=== PATIENT | female | born 2000 | race Caucasian/White ===

== ENCOUNTER 2023-01-09 18:53 | Emergency (ER) | payer OTHER, SELFPAY ==
[2023-01-09 18:57] VITALS: BP 117/82; PULSE 97; RESP 16; TEMP 35.9; O2SAT 98; BMI 43.9
[2023-01-09 19:32] LABS: Appearance Urine Clear (Clear); Bilirubin Urine Negative (Negative); Blood Urine Trace-intact (Negative); Color Urine Yellow (Yellow); Glucose Urine Negative (Negative); Ketones Urine Negative (Negative); Leukocyte Esterase Urine Negative (Negative); Nitrite Urine Negative (Negative); Protein Urine Negative (Negative); Specific Gravity Urine 1.015 (1.000-1.030); Urobilinogen Urine 0.2 (0.2-1.0)
[2023-01-09] MEDS: LACTATED RINGERS 1000 ML 1,000 ML IV (19:38)
[2023-01-09] MEDS: ONDANSETRON 2 MG/ML inj 4 MG IVP (19:39)
[2023-01-09 19:45] LABS: Basophils Absolute Auto 0.01 K/uL (0.00-0.30); Basophils Percent Auto 0.1 % (0.0-3.0); Eosinophils Absolute Auto 0.08 K/uL (0.00-0.50); Eosinophils Percent Auto 0.8 % (0.0-7.0); Hematocrit 40.2 % (33.0-51.0); Hemoglobin* 13.6 gm/dL (12.0-16.0); Immature Granulocytes Abs Auto 0.01 K/uL (0.00-0.30); Immature Granulocytes Pct Auto 0.1 %; Lymphocytes Absolute Auto 1.99 K/uL (0.90-2.90); Lymphocytes Percent Auto 20.5 % (20-44); Mean Corpuscular HGB Conc 34 gm/dL (32-36); Mean Corpuscular Hemoglobin 33 pg (26-34); Mean Corpuscular Volume 96 fL (80-100); Neutrophils Percent Auto 72.5 % (42.0-72.0); Platelet Count* 307 K/uL (140-440); RDW Coefficient of Variation % 12.4 % (11.5-15.5); Red Blood Count 4.18 m/uL (4.00-5.20); White Blood Count* 9.72 K/uL (4.50-11.00)
[2023-01-09 19:47] VITALS: BP 108/66
[2023-01-09 19:48] LABS: Slide Review Reflex No
[2023-01-09 20:00] LABS: Albumin* 3.9 g/dL (3.3-5.0); Chloride* 104 mmol/L (96-114)
[2023-01-09 20:01] LABS: Potassium* 3.8 mmol/L (3.6-5.1); Sodium* 134 mmol/L (135-149)
[2023-01-09 20:03] LABS: Alkaline Phosphatase* 80 U/L (40-150); Anion Gap 9 mEq/L (7-15); Aspartate Amino Transferase* 25 U/L (12-35); Bilirubin Total* 0.3 mg/dL (0.1-1.5); Carbon Dioxide* 21 mmol/L (20-32); Creatinine* 0.6 mg/dL (0.5-1.5); Estimated Glomerular Filt Rate 128 ml/min; Total Protein* 7.7 g/dL (6.0-8.3)
[2023-01-09 20:04] LABS: Alanine Aminotransferase* 20 U/L (4-35); Blood Urea Nitrogen* 13 mg/dL (5-24); Calcium* 9.2 mg/dL (8.4-10.6); Glucose* 91 mg/dL (60-115); Lipase* 101 U/L (23-300)
--- NOTE | 2023-01-09 20:09 | PC.NURSE ---
RN at bedside for OB assessment. 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 heart rate regular with no decreases. Patient denies vaginal bleeding or loss of fluid or pelvic pressure. She arrived at the emergency room with symptoms she described as upper abdominal cramping, nausea, vomiting, and diarrhea. Patient's nausea improved with medication and fluids.
[2023-01-09 20:13] LABS: PCR FLU A Negative PCR FLU A (Negative); PCR FLU B Negative PCR FLU B (Negative); SARS PCR* POSITIVE SARS-CoV-2 (Negative)
[2023-01-09 20:15] LABS: RBC Urine 0-2 (0-2); WBC Urine 0-2 (0-5)
--- NOTE | 2023-01-09 20:23 | ED_ITS ---
HPI - General Adult General Date Seen: 01/09/23 Chief complaint: Dizziness/Vertigo Stated complaint: 22 weeks , vomiting, dehyrdated Time Seen by Provider: 01/09/23 19:10 Source: patient Mode of arrival: ambulatory Limitations: no limitations History of Present Illness HPI narrative: Patient is a 22-year-old female presents emergency department for nausea, vomiting, lightheadedness and dizziness. She states symptoms started last night and have been going on throughout the day. She has vomited several times. She is 22 weeks is . Has had no complications with the . Denies fevers but has been having chills. Denies diarrhea. Has felt like she was going to pass out a few times. She has had some upper abdominal pain. See says the pain is much better at this time. Still feels very nauseated and lightheaded though. Has not been able to drink much because of the nausea and vomiting. Related Data Home Medications Medication Instructions Recorded Confirmed sertraline 50 mg tablet 50 mg PO DAILY 01/09/23 01/09/23 Allergies Allergy/AdvReac Type Severity Reaction Status Date / Time No Known Drug Allergies Allergy Verified 01/09/23 19:00 Review of Systems Status of ROS: Reports: 10 or more systems reviewed and unremarkable except as noted in History and below PFSH PFS Social History Smoking Status: Former smoker How often do you have a drink containing alcohol: never How often do you have six or more drinks on one occasion: Never AUDIT-C Alcohol total score: 0 Non-prescribed substance use: denies use Exam Narrative: Exam Narrative: Const: Well-nourished, Well-developed, in mild distress Eyes: PERRL, no conjunctival injection, and symmetrical lids HENT: Atraumatic external nose and ears. Moist mucous membranes. Neck: Symmetric, trachea midline, No thyromegaly. CVS: RRR, No murmurs or gallops. Peripheral pulses 2+ and equal in all extremities RESP: Unlabored respiratory effort. Clear to auscultation bilaterally. GI: Nontender/Nondistended, No rebound or guarding. MSK:Extremities w/o deformity, Normal Active ROM Skin: Warm, Dry. No rashes or lesions. Neuro: Normal Muscle tone, No focal neurological deficits. Psych: Awake, Alert, & Oriented x3. Appropriate mood and affect. Const: Vital Signs, click to edit/add: Vital Signs - 24 hr 01/09/23 18:57 01/09/23 19:47 Temperature 96.7 F L Pulse Rate [Pulse Oximeter] 97 Respiratory Rate 16 Blood Pressure [Ri ght Upper Arm] 117/82 108/66 Pulse Oximetry 98 Oxygen Delivery Me thod Room Air Course Vital Signs Vital signs: Initial Vital Signs Temperature 96.7 F L 01/09/23 18:57 Temperature Source Temporal Artery Scan 01/09/23 18:57 Pulse Rate 97 01/09/23 18:57 Respiratory Rate 16 01/09/23 18:57 Blood Pressure 117/82 01/09/23 18:57 Blood Pressure Mean 93 01/09/23 18:57 Blood Pressure Position Sitting 01/09/23 18:57 Pulse Oximetry 98 01/09/23 18:57 Oxygen Delivery Method Room Air 01/09/23 18:57 Vital Signs Temperature 96.7 F L 01/09/23 18:57 Pulse Rate 97 01/09/23 18:57 Respiratory Rate 16 01/09/23 18:57 Blood Pressure 117/82 01/09/23 18:57 Pulse Oximetry 98 01/09/23 18:57 Oxygen Delivery Method Room Air 01/09/23 18:57 Temperature 96.7 F L 01/09/23 18:57 Pulse Rate 97 01/09/23 18:57 Respiratory Rate 16 01/09/23 18:57 Blood Pressure 108/66 01/09/23 19:47 Pulse Oximetry 98 01/09/23 18:57 Oxygen Delivery Method Room Air 01/09/23 18:57 Medications Administered Medications: Discontinued Medications Generic Name Dose Route Start Last Admin Trade Name Freq PRN Reason Stop Dose Admin Lactated Ringer's 1,000 mls @ 1,000 mls/hr 01/09/23 19:17 01/09/23 19:38 Lactated Ringers 1000 Ml IV 01/09/23 20:16 1,000 mls/hr .Q1H ONE Administration Ondansetron HCl 4 mg 01/09/23 19:17 01/09/23 19:39 Ondansetron 2 Mg/Ml Inj IVP 01/09/23 19:18 4 mg ONCE ONE Administration Medical Decision Making MDM Narrative Medical decision making narrative: Patient is a 22-year-old female presents emergency department for lightheadedness, nausea, vomiting. She states she is feeling better today compared to yesterday but was still feeling lightheaded and nauseated. Has not barely keep anything down due to the nausea. We will give her a L of lactated Ringer's. Zofran given for nausea. CBC, CMP, ago was the slough, lipase, urinalysis all ordered. Urinalysis shows no acute abnormalities. CBC and CMP shows no concerning findings. No ketones in the urine so no signs of severe dehydration. She is COVID positive. She is feeling much better after the fluids and Zofran. Symptoms are likely secondary to COVID. We will discharge her home with Zofran. Informed to follow-up with her OB Gyne on Thursday. She is agreeable with this plan. Lab Data Labs: Lab Results 01/09/23 01/09/23 Range/Units 19:20 19:30 WBC 9.72 (4.50-11.00) K/uL RBC 4.18 (4.00-5.20) m/uL Hgb 13.6 (12.0-16.0) gm/dL Hct 40.2 (33.0-51.0) % MCV 96 (80-100) fL MCH 33 (26-34) pg MCHC 34 (32-36) gm/dL RDW Coeff of Loi 12.4 (11.5-15.5) % Plt Count 307 (140-440) K/uL Neut % (Auto) 72.5 H (42.0-72.0) % Lymph % (Auto) 20.5 (20-44) % Harvey % (Auto) 6.0 (0.0-11.0) % Eos % (Auto) 0.8 (0.0-7.0) % Baso % (Auto) 0.1 (0.0-3.0) % Neut # (Auto) 7.00 (1.7-7.0) K/uL Lymph # (Auto) 1.99 (0.90-2.90) K/uL Harvey # (Auto) 0.60 (0.00-0.90) K/UL Eos # (Auto) 0.08 (0.00-0.50) K/uL Baso # (Auto) 0.01 (0.00-0.30) K/uL Abs Immat Gran (auto) 0.01 (0.00-0.30) K/uL Imm/Tot Granulo (auto) 0.1 % Sodium 134 L (135-149) mmol/L Potassium 3.8 (3.6-5.1) mmol/L Chloride 104 (96-114) mmol/L Carbon Dioxide 21 (20-32) mmol/L Anion Gap 9 (7-15) mEq/L BUN 13 (5-24) mg/dL Creatinine 0.6 (0.5-1.5) mg/dL Estimated Creat Clear 119.60 Estimated GFR 128 ml/min Glucose 91 (60-115) mg/dL Calcium 9.2 (8.4-10.6) mg/dL Total Bilirubin 0.3 (0.1-1.5) mg/dL AST 25 (12-35) U/L ALT 20 (4-35) U/L Alkaline Phosphatase 80 (40-150) U/L Total Protein 7.7 (6.0-8.3) g/dL Albumin 3.9 (3.3-5.0) g/dL Lipase 101 (23-300) U/L Urine Color Yellow (Yellow) Urine Appearance Clear (Clear) Urine pH 6.0 (5.0-8.5) Ur Specific [place] 1.015 (1.000-1.030) Urine Protein Negative (Negative) Urine Glucose (UA) Negative (Negative) Urine Ketones Negative (Negative) Urine Blood Trace-intact A (Negative) Urine Nitrite Negative (Negative) Urine Bilirubin Negative (Negative) Urine Urobilinogen 0.2 (0.2-1.0) Ur Leukocyte Esterase Negative (Negative) Urine RBC 0-2 (0-2) Urine WBC 0-2 (0-5) Ur Squamous Epith Cells None (None-Few) Urine Bacteria None (None) SARS-CoV-2 (PCR) POSITIVE SARS-CoV-2 A (Negative) Influenza Type A (PCR) Negative PCR FLU A (Negative) Influenza Type B (PCR) Negative PCR FLU B (Negative) Discharge Plan Discharge Clinical Impression: COVID Patient Disposition: Home, Self-Care Condition: Improved Instructions: COVID-19 (Coronavirus Disease 2019) (ED) Additional Instructions: Follow-up with your OB Gyne provider on Thursday. Take Zofran prescribed through inst[facility] for your nausea. Stay well hydrated. Quarantine for 5 days from onset of symptoms and 72 hours without a fever Prescriptions: No Action sertraline 50 mg tablet 50 mg PO DAILY Stand Alone Forms: [employer] Info Instructions
--- OUTSIDE RECORDS SUMMARY | 2023-01-09 20:36 | XMS_ITS | Continuity of Care Document ---
Author Name Unknown Organization [facility] Address [address] [address] [place] [address] Phone Care Team Providers Care Economics Teacher Name Role Phone Steve LAWRENCE, Maddy Unavailable Unavaila ble Allergies, Adverse Reactions, Alerts Substance Reaction Status Criticality No Known Allergies Active No Inform ation Medications Medication Instructions Dosage Effective Dates (start - stop) Status Comments Bentyl 20 mg tablet take 1 tablet by oral route 3 times every day 20 MG - Active Prilosec OTC 20 mg tablet,delayed release Take 1 tablet by oral route 2 times every day 1 tablet - Active melatonin 10 mg tablet Take 1 tablet by oral route every day 1 tablet - Active Probiotic 10 billion cell capsule take 1 tablet by oral route every day 1 tablet - Active Low-Ogestrel (28) 0.3 mg-30 mcg tablet take 1 tablet by oral route every day 1.00 tablet - Active 5-HTP 100 mg capsule Take 2 capsules by oral route every day - Active melatonin 10 mg tablet take 2 tablet by oral/g-tube route every day 2 tablet - No Longer Active Prilosec OTC 20 mg tablet,delayed release take 1 Tablet by Oral route every day 1 Tablet - No Longer Active Procedures Procedure Date Offic/outpt E&m Estab Low-mod 5 Ugi Endo; W/bx 1/mx Level Iv-surg Path Gross/micro 15 Immunocytochemistry, Each Antibody Advance Directives Directive Yes / No Effective Date File Name No Information Encounters Encounter Description Practice Location Reason(s) For Visit Diagnoses Date Provider Providers Copied on Encounter Offic/outpt E&m Estab Low-mod [facility], [address] [address], [place], [place], [id number], tel:[phone] [facility] GI Symptoms or Concerns (chief complaint) Epigastric Pain Steve Castañeda. [address] [facility], [place], [place], [id number], [place]. tel:[phone] Referring Provider: Annabella Prakash NP, [address], [place], [address]. tel:[phone] [facility], [address] [address], [place], [place], [id number], tel:[phone] [facility] LUQ PainDysphagi a, unspecifiedG astritisDysp hagia, Unspecified No Information Referring Provider: Annabella Prakash NP, [address], [place], [address]. tel:[phone] [facility], [address] [address], [place], [place], [id number], tel:[phone] [facility] GI Symptoms or Concerns (chief complaint) LUQ Pain No Information Referring Provider: Annabella Prakash NP, [address], [place], [address]. tel:[phone] Family History Family Member Type Diagnosis Age At Onset Brother Problem (finding) Alive and well Mother Problem (finding) diabetes mellitus type 2 Maternal uncle Problem (finding) cancer of colon Father Problem (finding) diabetes mellitus type 1 Mother Problem (finding) stage 3 chronic kidney disease Mother Problem (finding) gallbladder disease Payers Payer name Insurance type Covered democrat ID Authorlionela kellie(s) [employer] [facility] [id number] Social History Type Description Quantity Date Captured Comments Alcohol Use Details Unknown Caffeine Use Details Unknown Tobacco Use Status Never smoked tobacco 2014 Smoking Status Never smoker Non-Smoking Tobacco Use Details : No Details Available : No Details Available Sex Female Vital Signs Date / Time: Height Weight BMI Pulse Rate Blood Pressure Temperature Respiratory Rate Body Surface Area Head Circumference Head Circ. Percentile Wt./[place]. Percentile BMI percentile Pulse Ox Inhaled Ox 8:52 AM 62.72 in 79.900 kg (176.15 lbs) 31.4 9 kg/m eter (2) 78 /min 119/74 mm[Hg] 97 Chief Complaint And Reason For Visit From encounter dated '11/17/2014 09:30'. GI Symptoms or Concerns (chief complaint). Description: Mariela is a 13 year old female accompanied to clinic by her mother. Mariela is here for a follow up evaluation of abdominal pain. Mariela was seen in clinic on 08/10/[address] Cotto. Mariela underwent an endoscopy on 08/24/14 which showed some mild gastritis. She is here today and reports her symptoms have greatly improved since endoscopy. She will still on occasional feel abdominal pains. The pain is no longer located on theleft side, but in the epigastric region. She is prescribed Omeprazole 20mg BID, but states they frequently forget to take the second dose of omeprazole. She states the pain feels tight throughout herabdomen. She will also have the sensation of food slowly going through her esophagus, especially with meats and bread. She does not have problems swallowing liquids. She continues to have a good appetite and denies any weight loss. She has one bowel movement every other to every third day. Depending on the day her stools can be hard or soft. She will have diarrhea on occasion. She does not think the pain feels better after having a bowel movement. Workup that has been completed include; CMP, CBC, amylase, lipase, TTG-IgA, abdominal ultrasound, CT of abdomen, endoscopy all which were within normal limits. Reason For Referral Reason For Referral No Information History Of Present Illness Encounter Date Complaint History Of Prese nt Illness GI Symptoms or Concerns Mariela is a 13 year old female accompanied to clinic by her mother. Mariela is here for a follow up evaluation of abdominal pain. Mariela was seen in clinic on 08/10/[address] Cotto. Mariela underwent an endoscopy on 08/24/14 which showed some mild gastritis. She is here today and reports her symptoms have greatly improved since endoscopy. She will still on occasional feel abdominal pains. The pain is no longer located on the left side, but in the epigastric region. She is prescribed Omeprazole 20mg BID, but states they frequently forget to take the second dose of omeprazole. She states the pain feels tight throughout her abdomen. She will also have the sensation of food slowly going through her esophagus, especially with meats and bread. She does not have problems swallowing liquids. She continues to have a good appetite and denies any weight loss. She has one bowel movement every other to every third day. Depending on the day her stools can be hard or soft. She will have diarrhea on occasion. She does not think the pain feels better after having a bowel movement. Workup that has been completed include; CMP, CBC, amylase, lipase, TTG-IgA, abdominal ultrasound, CT of abdomen, endoscopy all which were within normal limits. GI Symptoms or Concerns Mariela is a 13 year old female accompanied to clinic with her mother and friend. Mariela is here for an initial evaluation of abdominal pain. She has had some workup completed by her PCP and the emergency room at [facility] in [place], [place]. Lab work was completed in April 2014 which includes, CMP, CBC with differential, CMP, amylase and lipase, TTG-IgA. Lab work was unremarkable with the expectation of a slightly decreased hbg of 4.03 (normal 4.1-5.1) Diagnostic testing completed includes a normal abdominal ultrasound and a CT scan which the findings were nonspecific but some prominent mesenteric lymph nodes which are consistent with mesenteric adenitis. Currently Mariela is still having upper left quadrant pain which is described as sharp/stabbing. The pain radiates to her back and up into her chest. The pain is easily reproduced by applying pressure to the area. The medication Prilosec has helped significantly but has not relieved all of the pain. Eating sausage or greasy foods and running make the pain worse. Her appetite varies depending on the severity of her pain. She does complain of foods getting feeling stuck in her esophagus. She states breads and meats are the worse, she denies any problems swallowing liquid. She does feel nauseous on a daily basis but denies vomiting Mariela was reluctant to talk about her stooling pattern, she described it as sometimes hard, but no large BMs. She denies any blood in her stool. There is a positive family history for DM type 1 in her father, kidney disease in her mother. Mother states she also had a hiatal hernia when she was younger. Functional Status Date Functional Assessmen t No Information Instructions Date Instruction Additional Infor diana 1. Bentyl 20mg 2-3 t imes per day. If improving symptoms, may use as needed.2. 40mg Omeprazole once daily.3. Fiber supplement.4. Continue probiotic.5. Follow up as needed.6. Mother and Mariela verbalized understanding of the plan and has no additional questions at this time. Related to Epigastric Pain 1. We will obtain an upper endoscopy with biopsies. 2. If endoscopy and biopsies show any irritation or ulcers, she may need twice a day dosing on her Prilosec.3. If symptoms persist, further investigation may be warranted. 4. Mother and Mariela verbalized understanding of the plan and have no additional questions at this time. Related to LUQ Pain EGD Assessments Type Assessment Date assessment Epigastric Pain impression Given the negative w orkup to date, the likely cause for Mariela's pain and irregular stooling pattern is likely irritable bowel syndrome. We will start Bentyl for IBS. Since she frequently missed the second dose of Omperazole, we will increase her dose once daily. Endoscopy did not reveal any inflammation, infection or EOE of her esophagus. If swallowing gets worse, then we may consider upper GI study. Mental Status Date Cognitive Assessment Orientation - [place] ed to time, place, person, situation. Patient Care Teams Name Effective Dates (start - stop) Status Members No Information
[2023-01-09 20:49] VITALS: BP 108/66; PULSE 97; RESP 16; TEMP 35.9
== END 2023-01-09 20:49 | disposition home or self-care (01) ==
LOC: ED 20:34
PROVIDERS: Emergency Provider Student in an Organized Health Care Education/Training Program
DX: O98.512 Other viral diseases complicating pregnancy, second trimester (principal); U07.1 COVID-19
CPT/HCPCS: 36415; 80053; 81001; 83690; 85025; 87631; 96374; 99283; 99284; J2405; J7120

== ENCOUNTER 2023-03-19 21:51 | Outpatient (CLI) | payer BC, SELFPAY ==
--- OUTSIDE RECORDS SUMMARY | 2023-03-19 21:56 | XMS_ITS | Clinical Summary ---
Author Name Unknown Organization [facility] Address [place], [place] [address] Care Team Providers Care Train Electronic Technician Name Role Phone Kierra Garcia Primary Care Provider AzucenaMyra goodwin MD Unavailable [phone] Allergies No known active allergies Medications Medication Sig Dispensed Refills Start Date End Date Status vit 28/iron fum/folic (multivitamin folic acid 1 mg) Take 1 Tablet by mouth once daily. 0 10/24/2022 Active ondansetron (ZOFRAN ODT) 8 mg disintegrating tabletIndications:Naus ea, vomiting, and diarrhea Place 0.5-1 Tablets (4-8 mg) on the tongue every 8 hours if needed for Nausea/Vomiting . 30 Tablet 0 11/25/2022 Active sertraline (ZOLOFT) 50 mg tabletIndications:RADHA (generalized anxiety disorder) Take 1 Tablet (50 mg) by mouth every morning. 90 Tablet 3 12/17/2022 Active aspirin (ECOTRIN) 81 mg enteric coated tablet Take 1 Tablet (81 mg) by mouth once daily with a meal. 100 Tablet 3 01/14/2023 Active Active Problems Problem Noted Date Diagnosed Date MDD (major depressive disord er), recurrent, severe, with psychosis 03/04/2023 [facility] Supervision of high-risk 3 Overview: [facility] ULTRASOUND/TESTING PATIENT Support person name: Fire Code Inspector: No ULTRASOUND TYPE: L2 REASON FOR VISIT: obesity in NEXT VISIT ALERTS: Non-[facility] labs entered in EPIC? no Final MIMI by Early Ultrasound LMP Date: Patient's last menstrual period was 07/15/2022 (exact date). MIMI: 04/21/22 Early US: Date: 10/13/22 GA: 10w0d MIMI: 05/11/23 PrePregnancy Weight: 244 lb Height: 5' 3.5 BMI: 42.54 (Current BMI: 42.68 ) PLANS & FUTURE APPOINTMENTS: ULTRASOUND/GROWTH PLAN: L2 on 12/23/22 - Growth: Next TESTING PLAN: - Testing: Through DELIVERY PLAN: - Scheduled delivery: - Preferred delivery location: PRIMARY DIAGNOSIS: 21 y.o. Estimated Date of Delivery: 05/11/23 : Maternal: Obesity in BMI = 42.68 Depression (zoloft) ADHD PREVIOUS ULTRASOUNDS: Next:: L2 on 12/23/22 10/13/22 (10w0d) EDC 05/11/23 ECHO: REFERRING PHYSICIAN/PHONE/LAST UPDATE: Dr. Myra Zeng, [place] [phone] Primary MD approves scheduling of recommended ultrasounds/testing: Yes SPECIALISTS/CONSULTS: Include: Specialty MD Clinic Name Phone# [place] and ADDED TO PATIENT CARE TEAM No GENETICS: Not Done CARE COORDINATION: PERTINENT LABS: Blood type: B Rh Positive Antibody screen: Negative PERTINENT MEDS: zofran, PNV, Zoloft PROCEDURES: PLAN OF CARE: Original and updated POC 10/06/2022 Overview: Estimated Date of Delivery: None noted. Patient's last menstrual period was 07/15/2022 (exact date). GBS- Last Tdap- 2011 Last Flu vaccine- 2019 Glucose (GTT) result- No Known Allergies OB History Para Term AB Living 1 0 0 0 0 0 SAB IAB Ectopic Multiple Live Births 0 0 0 0 0 # Outcome Date GA Lbr Domingo/2nd Weight Sex Delivery Anes PTL Lv 1 Current Past Medical History: . Date Acne vulgaris 11/29/2015 ADHD (attention deficit hyperactivity disorder), inattentive type 04/14/2016 Depression, recurrent (HC) 11/29/2015 Diarrhea 07/02/2017 EGD 06/2017 normal Colonoscopy 06/2017 normal Dysmenorrhea in the adolescent 12/07/2012 Dysmenorrhea in the adolescent 12/07/2012 Pap smear for cervical cancer screening 04/03/202104/2021 NIL Plan: Pap due 04/2024 Polycystic ovary syndrome Tobacco dependence 02/04/2019 Past Surgical History: . Laterality Date COLONOSCOPY Colonoscopy 06/2017 normal ESOPHAGOGASTRODUODENOSCOPY EGD 06/2017 normal TONSIL AND ADENOIDECTOMY at age 1 1/2 No data on file. Problems (from 10/06/22 to present) No problems associated with this episode. CHARLOTTE MCCALL RN ....10/06/2022 11:36 AM RADHA (generalized anxiety disorder) 01/07/2016 Depression, recurrent 11/29/2015 Estimated Date of Delivery Comme nts Yes 05/11/2023 Based on Ultraso und Resolved Problems Problem Noted Date Diagnosed Date Resolved Date MDD (major depressive disord er), recurrent, severe, with psychosis 04/03/2021 09/18/2021 Pap smear for cervical cancer screening 04/03/2021 09/18/2021 Overview: 04/2021 NIL Plan: Pap due 04/2024 Tobacco dependence 02/04/2019 2 Diarrhea 07/02/2017 09/18/2021 Overview: EGD 06/2017 normal Colonoscopy 06/2017 normal ADHD (attention deficit hype ractivity disorder), inattentive type 04/14/2016 09/18/2021 Acne vulgaris 11/29/2015 09/18/2021 Dysmenorrhea in the adolescent 12/07/2012 09/18/2021 Encounters Date Type Department Care Team Description 03/19/2023 Nurse Triage [facility] [address] [place] [id number] Myra Zeng MD 03/18/2023 10:55 AM ROLLER REPAIRER OB Encounter [facility] [address] [place] [address] Myra Zeng MD Care (32wk 2d/Had some discharge chunk of her mucus plug/The cut down to 8 hours has really helped) 03/18/2023 Travel 03/04/2023 11:20 AM ROLLER REPAIRER OB Encounter [facility] [address] [facility] [address] Myra Zeng MD Care (30w 2d/A lot of back pain, sent home from work yesterday. Lower back, left side worse than the right. Sharp pain and sometimes will go down her leg but mainly lower back) 03/04/2023 Travel 02/11/2023 10:55 AM ROLLER REPAIRER OB Encounter [facility] [facility] [address] Myra Zeng MD Care (27w 2d); Immunization/Inject ion 02/11/2023 10:40 AM ROLLER REPAIRER Orders Only [facility] [address] [facility] [address] Lab, [place] [facility] 02/11/2023 9:45 AM ROLLER REPAIRER Ancillary Procedure [facility] [address] [facility] [address] 02/11/2023 Travel 01/14/2023 11:20 AM ROLLER REPAIRER OB Encounter [facility] [address] [facility] [address] Myra Zeng MD Care (23w 2d/Went to ED 01/09/23 had stomach flu symptoms into Thursday. Tested at home for COVID-19 and was negative but when she went to the ED she was positive. Tested again 01/13 she tested negative.) 01/14/2023 Travel 01/09/2023 Nurse Triage [facility] [address] [place] [address] Kierra Garcia PA Diarrhea; Vomiting 01/07/2023 2:20 PM ROLLER REPAIRER OB Encounter [facility] [address] [place] [address] Ayesha Mackay DO Care (22 weeks 2 days); Urinary Problem (back pain 3 days and groin pain 1 week) 01/07/2023 Travel 12/23/2022 8:19 AM CDT - 12/23/2022 11:59 PM CDT Hospital Encounter [facility] [address] [place] [address] Jeff Kim MBBS Supervision of high risk in second trimester (Primary Dx); High-risk in second trimester 12/23/2022 Travel 12/17/2022 11:20 AM CDT OB Encounter [facility] [address] [place] [address] Myra Zeng MD Care (19w 2d/Currently taking 50 mg Zoloft and it seems to be working well) 12/17/2022 Travel from Last 3 Months Immunizations Name Administration Dates Next Due COVID-19 vaccine (Moderna 100mcg/0.5mL) PF, MDV 08/26/2021 COVID-19 vaccine (Pfizer-Bio NTech 30mcg/0.3mL) PF, MDV 02/20/2021,01/30/2021 DTP 02/15/2004, 1,07/09/1999,05/02,03/06/1999 HIB-HepB (Comvax) 01/08/2000,05/03/1999,03/06/19 00 Hepatitis A (Peds) 10/16/2011,07/19/2007 Inactivated Polio Vaccine 02/15/2004,10/1999,05/03/1999,03/06 Influenza Virus, Unspecified 11/14/2019,12/17/19 18 Influenza, IIV3 (Age >=3 years) 12/07/2012,03/06 Influenza, IIV4 12/03/2022, 0,01/30/2018,12/23,11/29/2015 Influenza, Injectable, Mdck, Quadrivalent, W/preservative 11/14/2019,12/16/2017 MMR 02/15/2004,01/08/2000 Meningococcal Vaccine (Menactra) 11/29/2015,100 09/2012 Pneumococcal conj 7-Valent (Prevnar 7) 1,04/08/2000 Tdap 02/11/2023,10/16/2011 Varicella Vaccine 07/19/2007,04/08/2000 Family History Medical History Relation Name Comments Diabetes Father Cancer-colon Maternal Uncle Diabetes Mother with Hypertension Mother Other Mother CKD Cancer-ovarian Paternal Aunt Psychiatric illness Paternal Aunt depress ion Relation Name Status Comments Brother Alive Father Alive Maternal Aunt Maternal Uncle Mother Alive Paternal Aunt Social History Tobacco Use Types Packs/Day Years Used Date Smoking Tobacco: Former Cigarettes 0.7 0 07/12/2022 - 05/31/2016 Passive Smoke Exposure: Past Smokeless Tobacco: Never Tobacco Cessation:Counseling Given: Not Answered Comments:Smokes cigarettes only when drinking, and only sometimes. Passive Exposure Comments:Fiance Alcohol Use Standard Drinks/Week Comments Not Currently 0 (1 standard drink = 0.6 oz pur e alcohol) occ. PHQ-2 Answer Date Recorded PHQ-2 TOTAL SCORE 2 12/03/2022 Social Connections Answer Date Recorded Frequency of Communication with Friends and Fami ly Not on file 02/20/2021 Financial Resource Strain Answer Date R ecorded Difficulty of Paying Living Expenses Not on file 02/20/2021 Difficulty of Paying Living Expenses Not on file 02/20/2021 Estimated Date of Delivery Comme nts Yes 05/11/2023 Based on Ultraso und Sex and Gender Information Value Date Recorded Sex Assigned at Not on file Gender Identity Not on file Sexual Orientation Not on file Obstetrics History Para Term AB IAB SAB Ectopic Multiple Livin g Live Births 1 Date Outcome GA Total Labor Labor/2nd/3rd Weight Sex Delivery Anes PTL Adele A1 A5 Name Cl in Current Summary Episode Dates Number of Fetuses Estimated Date of Delivery 10/06/2022 - Present (03/19/2023) 05/11/2023 (set by Miguelito Zeng MD on 10/24/2022 based on Ultrasound on 10/13/2022) Dating Summary Based On MIMI GA Diff Last Menstrual Period on 07/15/2022 (Exact Date) 04/21/2023 +2w6d Ultrasound on 10/13/2022 05/11/2023 Working GA:10w0d Vitals Pregravid Weight Height TWG (As of 03/19/2023) Pregrav id BMI 1.6 m (5' 3) Date GA Fund Present FHR Mvmt BP Weight Edema Alb Glu Ket Dil/ Eff/Sta 3 16w1d Inpatient data not displayed here. See encounter summary. 3 20w1d Inpatient data not displayed here. See encounter summary. Notes Progress Notes - OB Encounte r - 03/18/2023 - GA:32w2d 03/18/2023 - 32w2d - Myra Zeng MD SUBJECTIVE: Mariela Damon is a 22 y.o. female at 32+2 weeks. Back pain is better with shorter work hours. PT is cost-prohibitive, but she did get exercises from the PT at work and she feels like those are helping. Had a mucousy discharge, wonders if mucous plug? Some BH contractions, but no painful or regular ones. No other concerns. See visit comments. OBJECTIVE: see OB vitals flow sheet ASSESSMENT : 30+2 weeks gestation Obesity in . Weekly BPP starting 34 weeks, growth ultrasound at 35 weeks. PLAN: labor signs and symptoms reviewed with patient including pain, cramping, bleeding or leaking fluid. RTC 2 weeks. Myra Zeng MD .................... 03/18/2023 11:16 AM ER REPAIRER Progress Notes - OB Encounte r - 03/04/2023 - GA:30w2d 03/04/2023 - 30w2d - Myra Zeng MD SUBJECTIVE: Mariela Damon is a 22 y.o. female at 30+2 weeks. She is struggling with low back pain. Unfortunately is working 12 hour shifts with minimal breaks. Yesterday was sent home due to severity of low back pain. No concerns. See visit comments. OBJECTIVE: see OB vitals flow sheet ASSESSMENT : 30+2 weeks gestation Low back pain, referral for PT placed. Letter with work restrictions. Obesity in , weekly BPP starting 34 weeks. Growth ultrasound at 35 weeks. Hx depression, well controlled with current regimen PLAN: labor signs and symptoms reviewed with patient including pain, cramping, bleeding or leaking fluid. RTC 2 weeks. Myra Zeng MD .................... 03/04/2023 11:41 AM ER REPAIRER Progress Notes - OB Encounte r - 02/11/2023 - GA:27w2d 02/11/2023 - - Myra Zeng MD SUBJECTIVE: Mariela Damon is a 22 y.o. female at 27+2 weeks. No concerns. See visit comments. OBJECTIVE: see OB vitals flow sheet ASSESSMENT : 27+2 weeks gestation Covid in , on ASA Obesity in . PLAN: labor signs and symptoms reviewed with patient including pain, cramping, bleeding or leaking fluid. TDaP today Growth ultrasound today, results pending. Diabetes, hemoglobin and syphilis screening today. RTC 3 weeks. Orders placed for 34 week growth/BPP and weekly BPPs starting at 34 weeks. Myra Zeng MD .................... 02/11/2023 10:55 AM ER REPAIRER Progress Notes - OB Encounte r - 01/14/2023 - GA:23w2d 01/14/2023 - - Myra Zeng MD SUBJECTIVE: Mariela Damon is a 22 y.o. female at 23+2 weeks. She was diagnosed with covid in the ER last week. No concerns. She is feeling better, covid symptoms have resolved. See visit comments. OBJECTIVE: see OB vitals flow sheet ASSESSMENT : 23+2 weeks gestation Maternal obesity Recent covid infection PLAN: labor signs and symptoms reviewed with patient including pain, cramping, bleeding or leaking fluid. Growth ultrasound, TDaP, hemoglobin, diabetes adn syphilis screening next visit. Start 81 mg ASA for remainder of her . RTC 4 weeks. Myra Zeng MD .................... 01/14/2023 12:47 PM ER REPAIRER Progress Notes - OB Encounte r - 01/07/2023 - GA:22w2d 01/07/2023 - 22w2d - Ayesha Mackay DO S: patient is 22 years old G1 at 22 2/[address] typically [address] Dr Zeng and sent message yesterday regarding some LLQ pain. She was wondering about kidney infection and was asked to come into clinic. Patient points to left groin/inguinal area when describing. Radiates to back. Constant pain at about a 2 'not bad' earlier this week getting out of shower and could barely lift leg b/c pain. Groin pain started week ago and back Thursday. Staying same. No fevers, no urinary symptoms, no vaginal discharge or bleeding. Eating and drinking ok. Is having regular BM's. 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 +FM. O: Gen: pleasant female, no acute distress Abdomen: gravid, nttp. FHT 140's Left inguinal canal midline with ttp along mid region. MS: points to left SI joint when describing pain. Gets up and down from exam table without difficulty. No CVA ttp. UA wnl except SG 1.030 and trace ketones. A: G1 at 22 2/7 weeks with left groin and SI joint pain Plan: 1. UA reviewed, increase hydration. 2. IRON to assess for vaginal infection 3. Suspect musculoskeletal Follow up for next , sooner if needed Ayesha Mackay D.O. 01/07/2023 4:54 PM. ER REPAIRER Progress Notes - Hospital En counter - 12/23/2022 - GA:20w1d 12/23/2022 - 20w1d - Jeff Kim MBBS MPP Ultrasound Visit Your patient had an ultrasound with [facility] on 12/23/2022. The report is ready and can be found in the [facility]. Recommendations regarding further care are listed below. The Impression from the report is below. Thank you for sending her to see us. Referred By: MYRA ZENG MD INDICATION: BMI greater than 40 Indications Code 20 weeks gestation of Z3A.20 Morbid Obesity - BMI >40 Low Risk NIPT Depression & ADHD, Meds: Danny Khan IMPRESSION: Intrauterine at 20w 1d. presentation is Transverse, head to maternal left. EFW 326 grams, percentile: 40. Growth parameters and estimated weight are appropriate for the gestational age. No major structural anomalies were identified. No markers for aneuploidy were identified. The echocardiogram was read by [facility] as normal. Normal Deepest Vertical Pocket of amniotic fluid: 4.02 cm. Placental location: Posterior There is no evidence of placenta previa. The cervical length is 3 cm. RECOMMENDATIONS: -Return to primary provider for continued care. -Growth ultrasounds at 28 and 34 weeks due to BMI greater than 40. -Weekly surveillance starting at 34 weeks. -The patient was directed to schedule with OB provider as discussed at their visit today. CONSULT: Present findings are reassuring. The patient was seen by the Perinatologist today. The previous ultrasound and the record were reviewed. The results of the ultrasound were communicated to the patient. Risks specific to morbid obesity include macrosomia, long labors, increased risk of IUFD, increased risk of Section and increased risk of anomalies. Growth ultrasounds at 28 weeks and 34 weeks will allow screening for growth abnormalities. Alternatives available for detecting anomalies, aneuploidy and predicting developmental outcome for this were thoroughly discussed. The risks, benefits and limitations of maternal serum screening, ultrasound, and genetic amniocentesis were reviewed as needed with the patient. At the conclusion of our visit the patient is satisfied by the risk reduction of today's normal ultrasound study and previously resulted low risk NIPT test results. A echocardiogram was done today because of the increased risk of congenital heart defects in babies of women with a BMI over 40. New government regulations related to the Cures act require that this note be released to the patient immediately, sometimes before the referring provider has been contacted. A portion of the information was presented verbally to the patient. The remainder is submitted as background for the referring provider, to be discussed as needed. Medical Decision Making: Consult Low Level 20536 Limited number/complexity of problems including two or more self-limited problems, and BMI>40. Limited amount of data including review of prior ultrasound and review of prior external notes. Low risk of morbidity/mortality to the fetus from additional test or tx which (genetic amniocentesis was considered and declined). Services Provided: Procedures Code DETAIL ANATOMY & [facility] ECHO 34896.0 Progress Notes - OB Encounte r - 12/17/2022 - GA:19w2d 12/17/2022 - - Myra Zeng MD SUBJECTIVE: Mariela Callahan is a 21 y.o. female at 19+2 weeks. No concerns. See visit comments. OBJECTIVE: see OB vitals flow sheet ASSESSMENT : 19+2 weeks gestation Maternal obesity PLAN: Warning signs and symptoms reviewed with patient including pain, cramping, bleeding or leaking fluid. MPP consult /level 2 ultrasound next week. RTC 4 weeks. Myra Zeng MD .................... 12/17/2022 11:57 AM Progress Notes - OB Encounte r - 12/03/2022 - GA:17w2d 12/03/2022 - - Myra Zeng MD SUBJECTIVE: Mariela Callahan is a 21 y.o. female at 17+2 weeks. She is here for follow up on elevated blood pressure readings when seen in the ER on 11/25 for nausea and cramping. She had vomiting and diarrhea. Her blood pressure was 160/96. Mariela has been checking home blood pressures 110-120s/70s since that visit. No concerns. See visit comments. OBJECTIVE: see OB vitals flow sheet ASSESSMENT : 17+2 weeks gestation with no complications Maternal obesity PLAN: Warning signs and symptoms reviewed with patient including pain, cramping, bleeding or leaking fluid. Reviewed normal blood pressure and when to contact me. I would like her to continue to check blood pressure a few times/week and let me know if >140/90. RTC 2 weeks. Level 2 ultrasound scheduled. Flu vaccine given today. Myra Zeng MD .................... 12/03/2022 3:09 PM Progress Notes - OB Encounte r - 11/19/2022 - GA:15w2d 11/19/2022 - 15w2d - Myra Zeng MD SUBJECTIVE: Mariela Callahan is a 21 y.o. female at 15+2 weeks. No concerns. See visit comments. She is still not sure on genetic testing. She will check with insurance and her and reach out if they want to do testing. OBJECTIVE: see OB vitals flow sheet ASSESSMENT : 15+2 weeks gestation Maternal obesity PLAN: Warning signs and symptoms reviewed with patient including pain, cramping, bleeding or leaking fluid. RTC 4 weeks. Flu shot at next visit. Level 2 ultrasound ordered. Myra Zeng MD .................... 11/19/2022 11:31 AM Progress Notes - OB Encounte r - 10/24/2022 - GA:11w4d 10/24/2022 - w4d - Myra Zeng MD FIRST OB VISIT HPI: Mariela Callahan is a 21 y.o. female at Unknown with rodriguez intrauterine here today for a initial OB exam. Estimated due date is Estimated Date of Delivery: 05/11/2023 based on ultrasound dating at 10 weeks. Nausea/Vomiting: yes, but now resolved Breast tenderness: yes Fatigue: yes Bleeding: no Taking vitamins: yes Options of sequential screen, cell-free DNA testing, amniocentesis were discussed. Patient is interested in pursuing testing, will let me know for sure what testing they'd like to do once she talks with her . CF and SMA testing is declined AMA: no Previous : no OB History Para Term AB Living 1 SAB IAB Ectopic Multiple Live Births # Outcome Date GA Lbr Domingo/2nd Weight Sex Delivery Anes PTL Lv 1 Current Past Medical History: . Date Acne vulgaris 11/29/2015 ADHD (attention deficit hyperactivity disorder), inattentive type 04/14/2016 Depression, recurrent (HC) 11/29/2015 Diarrhea 07/02/2017 EGD 06/2017 normal Colonoscopy 06/2017 normal Dysmenorrhea in the adolescent 12/07/2012 Dysmenorrhea in the adolescent 12/07/2012 Pap smear for cervical cancer screening 04/03/202104/2021 NIL Plan: Pap due 04/2024 Polycystic ovary syndrome Tobacco dependence 02/04/2019 Past Surgical History: . Laterality Date COLONOSCOPY Colonoscopy 06/2017 normal ESOPHAGOGASTRODUODENOSCOPY EGD 06/2017 normal TONSIL AND ADENOIDECTOMY at age 1 1/2 Family History Problem Relation Age of Onset Diabetes Mother 32 with Hypertension Mother Other Mother CKD Diabetes Father Cancer-colon Maternal Uncle Cancer-ovarian Paternal Aunt Psychiatric illness Paternal Aunt depression Social History Tobacco Use Smoking status: Former Current packs/day: 0.00 Types: Cigarettes Start date: 07/12/2022 Quit date: 05/31/2016 Years since quittin.4 Passive exposure: Past (Fiance) Smokeless tobacco: Never Tobacco comments: Smokes cigarettes only when drinking, and only sometimes. Substance Use Topics Alcohol use: Not Currently Comment: occ. Current Outpatient Medications Medication Sig vit 28/iron fum/folic (multivitamin folic acid 1 mg) Take 1 Tablet by mouth once daily. No current facility-administered medications for this visit. Medications have been reviewed by me and are current to the best of my knowledge and ability. ALLERGIES Patient has no known allergies. MENTAL HEALTH HISTORY History of psychiatric diagnosis: Anxiety/depression, stopped medication once she was Current mental health provider: not applicable Currently taking any psychiatric medications? No INFECTION HISTORY Current Drug Use: none Relevant infection history from OB Questionnaire: No MRSA Hx of chlamydia, treated Hx of HSV1 REVIEW OF SYSTEMS Comprehensive ROS complete and negative other than noted in HPI and on OB Questionnaire. PHYSICAL EXAM BP 118/81 (Cuff Site: Left Arm, Position: Sitting, Cuff Size: Adult Large) Pulse (!) 103 Ht 1.613 m (5' 3.5) Wt 110.7 kg (244 lb) LMP 07/15/2022 (Exact Date) SpO2 98% BMI 42.54 kg/m?? General Appearance: Alert, appropriate appearance for age. No acute distress. HEENT Exam: Grossly normal. Neck/Thyroid Exam: Supple, no masses, nodes or enlargement. Lungs: Clear to auscultation bilaterally. Breast Exam: Not indicated. Cardiovascular Exam: Regular rate and rhythm. S1, S2, no murmur. Abd: Soft, non-tender, no masses or organomegaly. Skin: no rashes or lesions. Lymphatics: no nodes palpable. Psychiatric Exam: Alert and oriented x 3, appropriate affect. Pelvic Exam: deferred ASSESSMENT/PLAN 21 y.o. at Unknown with rodriguez intrauterine . ICD-10-CM 1. Supervision of normal first in first trimester Z34.01 Satisfactory exam. Demonstrates appropriate and health-seeking behaviors toward her . Verbalizes good understanding of care schedule and the importance of coming to each visit as scheduled. Start/continue vitamins. Reviewed labs. She was encouraged to call the office with any questions or concerns. Body mass index is 42.54 kg/m??. Diet and expected weight gain discussed with patient. Consider level 2 ultrasound and MPP consultation Will need anesthesia consult in third trimester. Myra Zeng MD Progress Notes - OB Encounte r - 10/06/2022 - GA:9w0d 10/06/2022 - 9w0d - Charlotte Iverson RN SUBJECTIVE: Mariela Callahan is a 21 y.o. female, , who presents for confirmation and ob education. Patient presents to the clinic alone. Had positive test at home. This was Unplanned, Desired. Patient was on contraception. 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 MENSTRUAL HISTORY: Patient's last menstrual period was 07/15/2022 (exact date).: Cycle Regularity: regular, every 21-31 days Past Medical History: . Date Acne vulgaris 11/29/2015 ADHD (attention deficit hyperactivity disorder), inattentive type 04/14/2016 Depression, recurrent (HC) 11/29/2015 Diarrhea 07/02/2017 EGD 06/2017 normal Colonoscopy 06/2017 normal Dysmenorrhea in the adolescent 12/07/2012 Dysmenorrhea in the adolescent 12/07/2012 Pap smear for cervical cancer screening 04/03/202104/2021 NIL Plan: Pap due 04/2024 Polycystic ovary syndrome Tobacco dependence 02/04/2019 OB History Para Term AB Living 1 SAB IAB Ectopic Multiple Live Births # Outcome Date GA Lbr Domingo/2nd Weight Sex Delivery Anes PTL Lv 1 Current 5P'S SUBSTANCE ABUSE SCREEN FOR ALCOHOL, DRUGS AND TOBACCO: Did any of your parents have a problem with using alcohol or drugs? No Do any of your friends (peers) have problems with drug or alcohol use? No Does your partner have a problem with drug or alcohol use? No Before you knew you were , how often did you drink beer, wine, wine coolers or liquor or use any kind of drug? Rarely In the past month, how often did you drink beer, wine, wine coolers or liquor or use any kind of drug? Not at all How much did you smoke, vape or use tobacco or nicotine in any form before you knew you were ? Don't Smoke, Vape or use Tobacco Genetic Screening Genetic Screening/Teratology Counseling- Includes patient, baby's father, or anyone in either family with: Patient's age 35 years or older as of estimated date of delivery: No Thalassemia (Greek, Estonian, Mediterranean, or background): MCV less than 80: No Neural tube defect (Meningomyelocele, Spina bifida, or Anencephaly): No Congenital heart defect: No Down syndrome: No Brad-Sachs (Ashkenazi Jew, [facility], Syriac Algerian): No Dahiana disease (Ashkenazi Jew): No Familial dysautonomia (Ashkenazi Jew): No Sickle cell disease or trait (): No Hemophilia or other blood disorders: No Muscular dystrophy: No Cystic fibrosis: No Kimble's chorea: No Intellectual disability and/or autism: No Other inherited genetic or chromosomal disorder: No Maternal metabolic disorder (eg. Type 1 diabetes, PKU): No Patient or baby's father had child with defects not listed above: No Recurrent loss, or a stillbirth: Yes (Comment: FOB's mom multiple miscarriages) Medications (including supplements, vitamins, herbs, or OTC drugs)/illicit/recreational drugs/alcohol since last menstrual period: No CURRENT MEDICATIONS: Current Outpatient Medications Medication Sig Blood-Glucose Meter (OneTouch Verio Meter) Dispense glucose meter, test strips and lancets covered by the patient insurance. Test 2 times per day. durable medical equipment (DME) AirSelect Standard Medium metFORMIN (GLUCOPHAGE XR) 500 mg Extended-Release tablet Take 2 Tablets (1,000 mg) by mouth once daily. sertraline (ZOLOFT) 100 mg tablet Take 1 Tablet (100 mg) by mouth every morning. No current facility-administered medications for this visit. Medications have been reviewed by me and are current to the best of my knowledge and ability. ALLERGIES: Patient has no known allergies. OBJECTIVE: Ht 1.629 m (5' 4.13) Wt 111.7 kg (246 lb 3.2 oz) LMP 07/15/2022 (Exact Date) BMI 42.08 kg/m?? ,URINE (no units) Date Value 06/18/2020 Negative ASSESSMENT/PLAN: ICD-10-CM 1. Supervision of normal first in first trimester Z34.01 CBC W PLT NO DIFF URINE CULTURE TYPE AND SCREEN RUBELLA IMMUNE STATUS TREPONEMA PALLIDUM LC HIV-1/O/2, 4TH GENERATION LC HBSAG SCREEN LC HCV ANTIBODY RFX TO QUANT PCR SOLE SPLITTER PROBE - GC CHLAMYDIA DNA PCR [[id number]] URINALYSIS W REFLEX MICROSCOPIC IF POSITIVE [87975.2] US 1ST TRIMESTER (< 14 weeks) [24676.0] EDUCATION/PATIENT INSTRUCTIONS - Advised patient to start/continue vitamin. - Discussed risk of using alcohol, tobacco, other drugs in . - Discussed healthy lifestyle in . - Provided copy of Beginnings book and book inserts, discussed [id number] medications, and follow up. - Encouraged patient to call clinic at [phone] with any vaginal bleeding, fluid leaking from vagina, severe abdominal pain, nausea with severe vomiting, fever higher than 100.4F, painful urination, headache not relieved by Tylenol, or other concerns - labs completed with today's visit. - Patient informed to schedule 1st trimester dating ultrasound between 7-10 weeks. - Initial OB appointment with FP/OB scheduled. PHQ-9, and COVID-19 vaccine discussion to be completed at this visit. Future Appointments Date Time Provider Department Center 10/28/2022 11:00 AM Saúl Christensen DPM [facility]CCALL RN .................... 10/06/2022 11:23 AM Last Filed Vital Signs Vital Sign Reading Time Taken Comments Blood Pressure 121/85 03/18/2023 11:03 AM ROLLER REPAIRER Pulse 86 03/18/2023 11:03 AM ROLLER REPAIRER Temperature 36.7 ??C (98 ??F) 11/25/2022 11:51 AM CDT Respiratory Rate 18 11/25/2022 11:51 AM CDT Oxygen Saturation 98% 03/18/2023 11:03 AM ROLLER REPAIRER Inhaled Oxygen Concentration - - Weight 119.7 kg (264 lb) 03/18/2023 11:03 AM ROLLER REPAIRER Height 160 cm (5' 3) 11/25/2022 11:51 AM CDT Body Mass Index 46.77 11/25/2022 11:51 AM CDT Plan of Treatment Upcoming Encounters Date Type Department Care Team (Late st Contact Info) Description 04/01/2023 9:45 AM ROLLER REPAIRER Ancillary Procedure [facility] [address] [place] [address] 04/01/2023 10:30 AM ROLLER REPAIRER OB Encounter [facility] [address] [place] [address] Myra Zeng MD [address] [facility] [address] 04/06/2023 8:15 AM ROLLER REPAIRER Ancillary Procedure [facility] [address] [facility] [address] 04/06/2023 9:30 AM ROLLER REPAIRER OB Encounter [facility] [address] [facility] [address] Myra Zeng MD [address] [facility] [address] 04/15/2023 1:10 PM ROLLER REPAIRER OB Encounter [facility] [address] [facility] [address] Myra Zeng MD [address] [facility] [address] 04/15/2023 1:45 PM ROLLER REPAIRER Ancillary Procedure [facility] [address] [facility] [address] 04/22/2023 10:30 AM ROLLER REPAIRER OB Encounter [facility] [address] [facility] [address] Myra Zeng MD [address] [facility] [address] 04/22/2023 1:00 PM ROLLER REPAIRER Ancillary Procedure [facility] [address] [facility] [address] 04/29/2023 10:30 AM ROLLER REPAIRER OB Encounter [facility] [address] [facility] [address] Myra Zeng MD [address] [facility] [address] 04/29/2023 1:00 PM ROLLER REPAIRER Ancillary Procedure [facility] [address] [place] [address] 05/06/2023 10:30 AM ROLLER REPAIRER OB Encounter [facility] [address] [place] [address] Myra Zeng MD [address] [place] [address] 05/06/2023 1:00 PM ROLLER REPAIRER Ancillary Procedure [facility] [address] [place] [address] Health Maintenance Due Date Last Done Comments HPV series for age 9-26 (1 - 2-dose series) 2009 COVID-19 vaccine series (2022- season) 2022 08/26/2021, 02/20/2021, 01/30/2021 Chlamydia for age 16-24 10/07/2023 10/07/19 23, 08/05/2021, 06/18/2020, Additional history exists BMI (ht and wt on same day) for age 18+ 10/25/2023 10/24/2022, 10/06/2022, 12/11/2021, Additional history exists Depression screening for age 12+ 12/04/2023 12/03/2022, 08/08/2022, 11/26/2020, Additional history exists Pap test for age 21-65 04/03/2024 04/03/2021 Tetanus booster 02/11/2033 02/11/2023, 10/16/2011 Pneumococcal series for age 6-64 Aged Out 07/08/2000, 04/08/2000 No longer eligibl e based on patient's age to complete this topic HIV for age 15-65 Completed 10/06/2022 Hepatitis C screening for age 18-79 Completed 10/06/2022 Influenza for age 9-49 Completed , 11/14/2019, 11/14/2019, Additional history exists Tdap Completed 02/11/2023, 10/16/2011 Procedures Procedure Name Priority Date/Time Associated Diagnosis Comments US OB FOLLOW UP ANY TRI SINGLE TA Routine 02/11/2023 11:37 AM ROLLER REPAIRER Encounter for supervision of normal first in second trimester GLUCOSE,GESTATIONAL Routine 02/11/2023 1 1:13 AM ROLLER REPAIRER Encounter for supervision of normal first in second trimester TREPONEMA PALLIDUM Routine 02/11/2023 11 :13 AM ROLLER REPAIRER Encounter for supervision of normal first in second trimester HEMOGLOBIN Routine 02/11/2023 11:13 AM ROLLER REPAIRER Encounter for supervision of normal first in second trimester TRICHOMONAS, CONSUELO, AND BACTERIAL VAGINOSIS BY IRON Routine 01/07/2023 2:54 PM ROLLER REPAIRER Back pain, unspecified back location, unspecified back pain laterality, unspecified chronicity UA W/ SEDIMENT EXAM REFLEXED PER CRITERIA Routine 01/07/2023 2:20 PM ROLLER REPAIRER Back pain, unspecified back location, unspecified back pain laterality, unspecified chronicity US ECHOCARDIOGRAM Routine 12/23/2022 9:57 AM CDT High-risk in second trimester US OB DETAIL ANATOMY SINGLE Routine 12/23/2022 9:57 AM CDT High-risk in second trimester from Last 3 Months Results * US OB FOLLOW UP ANY TRI SINGLE TA (02/11/2023 11:37 AM ROLLER REPAIRER) Anatomical Region Laterality Modality , 2or 3 TRIMESTER Ultrasound 02/11/2023 4:13 PM ROLLER REPAIRER Impressions 02/11/2023 4:13 PM ROLLER REPAIRER Sonographic gestational age 26 weeks 4 days and sonographic due date 05/16/2023. Sonographic age 5 days behind the clinical age. Estimated weight 22nd percentile. Abdominal circumference 35th percentile. BPD and HC 4th percentile. Dictated by Kp Wang MD @ Feb 11 2023 ??4:13PM (Electronically Signed) ?? Narrative 02/11/2023 4:13 PM ROLLER REPAIRER For Patients: ??As a result of the Cures Act, medical imaging exams and procedure reports are released immediately into your electronic medical record. ??You may view this report before your referring provider. ??If you have questions, please contact your health care provider. INDICATION: Third trimester scan, evaluate growth. COMPARISON: 12/23/2022 TECHNIQUE: Real time arevalo scale imaging of the fetus was performed. FINDINGS: Sonographic imaging demonstrates a single living intrauterine gestation. ??Fetus demonstrates a regular cardiac rate of 143 beats per minute. ??Fetus has a vertex position. The placenta lies posterior. Amniotic fluid volume appears normal and there is a single deepest vertical pocket: 3.6 cm. The estimated weight is 990gm which lies at the 22nd %. ??On the prior OB ultrasound exam dated 12/23/2022 the estimated weight was at the 40th%. BPD 4th percentile. HC 4th percentile. AC 35th percentile. FL 24th percentile. The HC/AC ratio measures 1.07 range (1.05- 1.22). Procedure Note Kp Wang MD - 02/11/2023 For Patients: As a result of the Cures Act, medical imagingexams and procedure reports are released immediately into your electronicmedical record. You may view this report before your referring provider.If you have questions, please contact your health care provider. INDICATION: Third trimester scan, evaluate growth. COMPARISON: 12/23/2022 TECHNIQUE: Real time arevalo scale imaging of the fetus was performed. FINDINGS: Sonographic imaging demonstrates a single living intrauterine gestation.Fetus demonstrates a regular cardiac rate of 143 beats per minute. Fetushas a vertex position. The placenta lies posterior. Amniotic fluid volumeappears normal and there is a single deepest vertical pocket: 3.6 cm. Theestimated weight is 990gm which lies at the 22nd %. On the prior OBultrasound exam dated 12/23/2022 the estimated weight was at [id number]%. BPD 4th percentile. HC 4th percentile. AC 35th percentile. FL 24thpercentile. The HC/AC ratio measures 1.07 range (1.05-1.22). IMPRESSION: Sonographic gestational age 26 weeks 4 days and sonographic due date05/16/2023. Sonographic age 5 days behind the clinical age. Estimated weight 22nd percentile. Abdominal circumference 35thpercentile. BPD and HC 4th percentile. Dictated by Kp Wang MD @ Feb 11 2023 4:13PM (Electronically Signed) Myra Zeng MD US * TREPONEMA PALLIDUM (02/11/2023 11:13 AM ROLLER REPAIRER) TREPONEMA PALLIDUM Non-Reacti ve Non-Reacti ve 02/11/2023 5:43 PM ROLLER REPAIRER [facility] Blood BLOOD SPECIMEN / Unknown Butterfly / Unknown 02/11/2023 11:13 AM ROLLER REPAIRER 02/11/2023 11:13 AM ROLLER REPAIRER Myra Zeng MD SEND OUTS [facility] [address] [place] [address], * HEMOGLOBIN (02/11/2023 11:13 AM ROLLER REPAIRER) HEMOGLOBIN 12.4 12.0 - 16.0 g/dL 02/11/2023 11:16 AM ROLLER REPAIRER [facility] MCV 97 80 - 100 fL 02/11/2023 11:16 AM ROLLER REPAIRER [facility] Blood BLOOD SPECIMEN / Unknown Butterfly / Unknown 02/11/2023 11:13 AM ROLLER REPAIRER 02/11/2023 11:13 AM ROLLER REPAIRER Myra Zeng MD HEMATOLOGY [facility] [address] [place] [address], [place] [phone] * GLUCOSE,GESTATIONAL (02/11/2023 11:13 AM ROLLER REPAIRER) GLUCOSE,GESTAT IONAL 75 70 - 139 mg/dL 02/11/2023 11:34 AM ROLLER REPAIRER [facility] Blood BLOOD SPECIMEN / Unknown Butterfly / Unknown 02/11/2023 11:13 AM ROLLER REPAIRER 02/11/2023 11:13 AM ROLLER REPAIRER Myra Zeng MD CHEMISTRY [facility] [address] [place] [address], [place] [phone] * TRICHOMONAS, CONSUELO, AND BACTERIAL VAGINOSIS BY IRON (01/07/2023 2:54 PM ROLLER REPAIRER) CONSUELO SPECIES Negative Negative 12:46 PM ROLLER REPAIRER [facility] CONSUELO GLABRATA Negative Negative 01/08/2023 12:46 PM ROLLER REPAIRER [facility] TRICHOMONAS VVA Negative Negative 12:46 PM ROLLER REPAIRER [facility] BACTERIAL VAGINOSIS Negative Negative 01/08/2023 12:46 PM ROLLER REPAIRER [facility] Other VAGINAL SWAB / Unknown Non-Blood / Unknown 01/07/2023 2:54 PM ROLLER REPAIRER 01/07/2023 3:15 PM ROLLER REPAIRER Ayesha Mackay DO MICROBIOLOGY Performing Organization Address City/[facility]/ZIP Co de Phone Number [facility] [address] [address], * (ABNORMAL) UA W/ SEDIMENT EXAM REFLEXED PER CRITERIA (01/07/2023 2:20 PM ROLLER REPAIRER) COLOR Yellow Yellow Color 01/07/2023 2:32 PM ROLLER REPAIRER [facility] CLARITY Clear Clear Clarity 01/07/2023 2:32 PM ROLLER REPAIRER [facility] SPECIFIC GRAVITY,URINE >=1.030(A) 1.010, 1.015, 1.020, 1.025 01/07/2023 2:32 PM ROLLER REPAIRER [facility] PH,URINE 6.0 6.0, 7.0, 8.0, 5.5, 6.5, 7.5, 8.5 01/07/2023 2:32 PM ROLLER REPAIRER [facility] UROBILINOGEN, QUALITATIVE Normal Normal EU/dl 01/07/2023 2:32 PM ROLLER REPAIRER [facility] PROTEIN, URINE Negative Negative mg/dL 01/07/2023 2:32 PM ROLLER REPAIRER [facility] GLUCOSE, URINE Negative Negative mg/dL 01/07/2023 2:32 PM ROLLER REPAIRER [facility] KETONES,URINE Trace(A) Negative mg/dL 01/07/2023 2:32 PM ROLLER REPAIRER [facility] BILIRUBIN,URI NE Negative Negative 01/07/2023 2:32 PM ROLLER REPAIRER [facility] OCCULT BLOOD,URINE Negative Negative 01/07/2023 2:32 PM ROLLER REPAIRER [facility] NITRITE Negative Negative 01/07/2023 2:32 PM ROLLER REPAIRER [facility] LEUKOCYTE ESTERASE Negative Negative 01/07/2023 2:32 PM ROLLER REPAIRER [facility] Urine URINE SPECIMEN / Unknown Non-Blood / Unknown 01/07/2023 2:20 PM ROLLER REPAIRER 01/07/2023 2:29 PM ROLLER REPAIRER Ayesha Mackay DO URINE [facility] [address] [place] [address], * US ECHOCARDIOGRAM (12/23/2022 9:57 AM CDT) Anatomical Region Laterality Modality HEART Ultrasound 12/23/2022 8:40 AM CDT Narrative 12/23/2022 10:39 AM CDT Normal Echocardiogram COMMENT The results of the echocardiogram were discussed with the parents. ?? echocardiograms can not rule out some ventricular septal defects, persistent patent ductus arteriosus, atrial septal defect, some abnormalities of systemic and pulmonary venous return, coarctation of the aorta, and minor valve abnormalities. Services Provided: Procedures Code US ECHOCARDIOGRAM 16223.0 US DOPPLER COLOR FLOW VELOCITY MAP 09318.0 Procedure Note Jeff Kim MBBS - 12/23/2022 Normal Echocardiogram COMMENT The results of the echocardiogram were discussed with the parents. echocardiograms can not rule out some ventricular septal defects, persistent patentductus arteriosus, atrial septal defect, some abnormalities of systemic and pulmonary venous return,coarctation of the aorta, and minor valve abnormalities. Services Provided: ProceduresCode US [id number] US DOPPLER COLOR FLOW VELOCITY [id number] Myra Zeng MD US * US OB DETAIL ANATOMY SINGLE (12/23/2022 9:57 AM CDT) Anatomical Region Laterality Modality , 2or 3 TRIMESTER Ultrasound 12/23/2022 8:38 AM CDT Narrative 12/23/2022 10:15 AM CDT Referred By: MYRA ZENG MD ? INDICATION: BMI greater than 40 Indications Code 20 weeks gestation of Z3A.20 Morbid Obesity - BMI >40 Low Risk NIPT Depression & ADHD, Meds: Danny Khan IMPRESSION: Intrauterine at 20w 1d. presentation is Transverse, head to maternal left. EFW 326 grams, percentile: 40. ?? Growth parameters and estimated weight are appropriate for the gestational age. ? No major structural anomalies were identified. No markers for aneuploidy were identified. The echocardiogram was read by [facility] as normal. Normal Deepest Vertical Pocket of amniotic fluid: 4.02 cm. Placental location: Posterior There is no evidence of placenta previa. The cervical length is 3 cm. ?? RECOMMENDATIONS: -Return to primary provider for continued care. -Growth ultrasounds at 28 and 34 weeks due to BMI greater than 40. -Weekly surveillance starting at 34 weeks. -The patient was directed to schedule with OB provider as discussed at their visit today. CONSULT: Present findings are reassuring. ??The patient was seen by the Perinatologist today. ??The previous ultrasound and the record were reviewed. ??The results of the ultrasound were communicated to the patient. Risks specific to morbid obesity include macrosomia, long labors, increased risk of IUFD, increased risk of Section and increased risk of anomalies. ??Growth ultrasounds at 28 weeks and 34 weeks will allow screening for growth abnormalities. ?? Alternatives available for detecting anomalies, aneuploidy and predicting developmental outcome for this were thoroughly discussed. ??The risks, benefits and limitations of maternal serum screening, ultrasound, and genetic amniocentesis were reviewed as needed with the patient. ??At the conclusion of our visit the patient is satisfied by the risk reduction of today's normal ultrasound study and previously resulted low risk NIPT test results. A echocardiogram was done today because of the increased risk of congenital heart defects in babies of women with a BMI over 40. ?? New government regulations related to the Century Cures act require that this note be released to the patient immediately, sometimes before the referring provider has been contacted. ??A portion of the information was presented verbally to the patient. ??The remainder is submitted as background for the referring provider, to be discussed as needed. Medical Decision Making: Consult Low Level 90567 ?Limited number/complexity of problems including two or more self-limited problems, and BMI>40. ?Limited amount of data including review of prior ultrasound and review of prior external notes. ?Low risk of morbidity/mortality to the fetus from additional test or tx which (genetic amniocentesis was considered and declined). Services Provided: Procedures Code DETAIL ANATOMY & [facility] ECHO 06560.0 Procedure Note Jeff Kim MBBS - 12/23/2022 Referred By: MYRA ZENG MD INDICATION: BMI greater than 40 IndicationsCode 20 weeks gestation of [id number] Morbid Obesity - BMI >40 Low Risk NIPT Depression & ADHD, Meds: Danny Khan IMPRESSION: Intrauterine at 20w 1d. presentation is Transverse, head to maternal left. EFW 326 grams, percentile: 40. Growth parameters and estimated weight are appropriate for thegestational age. No major structural anomalies were identified. No markers for aneuploidy were identified. The echocardiogram was read by [facility] as normal. Normal Deepest Vertical Pocket of amniotic fluid: 4.02 cm. Placental location: Posterior There is no evidence of placenta previa. The cervical length is 3 cm. RECOMMENDATIONS: -Return to primary provider for continued care. -Growth ultrasounds at 28 and 34 weeks due to BMI greater than 40. -Weekly surveillance starting at 34 weeks. -The patient was directed to schedule with OB provider as discussed attheir visit today. CONSULT: Present findings are reassuring. The patient was seen by thePerinatologist today. The previous ultrasound and the record were reviewed. The results ofthe ultrasound were communicated to the patient. Risks specific to morbid obesity includemacrosomia, long labors, increased risk of IUFD, increased risk of Section and increasedrisk of anomalies. Growth ultrasounds at 28 weeks and 34 weeks will allowscreening for growth abnormalities. Alternatives available for detecting anomalies, aneuploidy andpredicting developmental outcome for this were thoroughly discussed. The risks, benefitsand limitations of maternal serum screening, ultrasound, and genetic amniocentesis werereviewed as needed with the patient. At the conclusion of our visit the patient is satisfied bythe risk reduction of today's normal ultrasound study and previously resulted low risk NIPT testresults. A echocardiogram was done today because of the increased risk ofcongenital heart defects in babies of women with a BMI over 40. New government regulations related to the Cures act requirethat this note be released to the patient immediately, sometimes before the referringprovider has been contacted. A portion of the information was presented verbally to thepatient. The remainder is submitted as background for the referring provider, to be discussed asneeded. Medical Decision Making: Consult Low Level 31137 Limited number/complexity of problems including two or moreself-limited problems, and BMI>40. Limited amount of data including review of prior ultrasound and reviewof prior external notes. Low risk of morbidity/mortality to the fetus from additional test ortx which (genetic amniocentesis was considered and declined). Services Provided: ProceduresCode DETAIL ANATOMY & [facility] [id number] Myra Zeng MD from Last 3 Months Care Teams Train Electronic Technician Relationship Specialty Start Date End Date Kierra Garcia PA [address] [place] [address] PCP - General Physician Electron Beam Photo Mask Maker 03/13/21 Myra Zeng MD [address] [place] [address] Family Practice 11/19/22
--- OUTSIDE RECORDS SUMMARY | 2023-03-19 21:56 | XMS_ITS | Continuity of Care Document ---
Author Name Unknown Organization [facility] Address [address] [place] [address] Insurance Providers Payer Plan Claims Address Claims Phone Policy Number Group Number Relation Employer Guarantor Name Guarantor Guarantor Address Guarantor Phone [employer] [address], [place] [address] [phone] Curtis Callahan [address] [place] [address] [employer] [address], [address] [address] [phone] Curtis Callahan [address] [place] [address] [facility] [address] [address], [place] [address] [phone] Curtis Callahan [address] [place] [address] Problems Unknown Problems Results No Results Allergies, adverse reactions, alerts No known allergies and adverse reactions Medications No administered medications reported Vital Signs Date Vital Result Comment 05/27/2022 Body Height [id number] m Body Weight 104.86693099194 kg Body Mass Index 39.48 kg/m2 Social History No smoking Hx information available
[2023-03-19 22:05] VITALS: BP 123/81; PULSE 103
[2023-03-19 22:40] LABS: Appearance Urine Cloudy (Clear); Bilirubin Urine Negative (Negative); Blood Urine Negative (Negative); Color Urine Yellow (Yellow); Glucose Urine Negative (Negative); Ketones Urine Negative (Negative); Leukocyte Esterase Urine Trace (Negative); Nitrite Urine Negative (Negative); Protein Urine Negative (Negative); Specific Gravity Urine >= 1.030 (1.000-1.030)
[2023-03-19 22:59] LABS: Bacteria Urine Moderate; Mucus Urine Few; RBC Urine 0-2 (0-2); Squamous Epithelial Cell Urine Moderate (None-Few)
[2023-03-19] MEDS: LACTATED RINGERS 1000 ML 1,000 ML 500 ML IV (23:45)
--- NOTE | 2023-03-20 00:57 | PC.OBNST ---
NST Note NST Note Start: 03/19/23 21:55 Freq: ONCE Status: Active Protocol: Document 03/20/23 00:56 [facility] (Rec: 03/20/23 00:57 [facility] [id number]) NST Note 1 Para (# of births) 0 EDC 05/11/23 Gestational Age In Weeks & Days 32 Weeks & 4 Days Patient Presented with Complaint(s) of Contractions/cramping,Other Other Complaints Diarrhea, low back pain, occasional nausea Reactive Yes Appropriate for Gestational Age Yes DELFINO Lebron Date 03/20/23 Reactive Yes Appropriate for Gestational Age Yes DELFINO Bañuelos Date 03/20/23 OB NST charge Yes Complete NST Note via Write Note Yes The provider's electronic signature indicates the NST is reactive/appropriate for gestational age. *Note to provider: If an addendum is required, open the patient's chart and click on the note under the Nurse/Allied Health tab.
[2023-03-20] MEDS: ONDANSETRON 2 MG/ML inj 4 MG IVP (01:08)
--- NOTE | 2023-03-24 13:49 | PC.OBNST ---
NST Note NST Note Start: 03/19/23 21:55 Freq: ONCE Status: Discharge Protocol: Document 03/20/23 00:56 [facility] (Rec: 03/20/23 00:57 [facility] [id number]) NST Note 1 Para (# of births) 0 EDC 05/11/23 Gestational Age In Weeks & Days 32 Weeks & 4 Days Patient Presented with Complaint(s) of Contractions/cramping,Other Other Complaints Diarrhea, low back pain, occasional nausea Reactive Yes Appropriate for Gestational Age Yes DELFINO Lebron Date 03/20/23 Reactive Yes Appropriate for Gestational Age Yes DELFINO Bañuelos Date 03/20/23 OB NST charge Yes Complete NST Note via Write Note Yes The provider's electronic signature indicates the NST is reactive/appropriate for gestational age. *Note to provider: If an addendum is required, open the patient's chart and click on the note under the Nurse/Allied Health tab.
== END 2023-03-20 01:25 | disposition home or self-care (01) ==
LOC: OB OUT 21:53 → OB 21:54
PROVIDERS: PCP Family Medicine; Visit Provider Obstetrics & Gynecology
DX: O47.03 False labor before 37 completed weeks of gestation, third trimester (principal); Z3A.32 32 weeks gestation of pregnancy
CPT/HCPCS: 59025; 81003; 81015; 87086; G0463; J2405; J7120

== ENCOUNTER 2023-03-26 12:52 | Outpatient (CLI) | payer BC, SELFPAY ==
[2023-03-26 13:07] VITALS: BP 148/76; PULSE 105
--- OUTSIDE RECORDS SUMMARY | 2023-03-26 13:20 | XMS_ITS | Continuity of Care Document ---
Author Name Unknown Organization [facility] Address [address] [address] [place] [address] Phone Care Team Providers Care Client Administrator Name Role Phone Steve LAWRENCE, Maddy Unavailable [...] Copied on Encounter Offic/outpt E&m Estab Low-mod [facility], [address] [address], [place], [place], [id number], tel:[phone] Pediatric Clinic GI Symptoms or Concerns (chief complaint) Epigastric Pain Steve Castañeda. [address] [facility], [place], [place], [id number], [place]. tel:[phone] Referring Provider: Annabella Prakash NP, [address], [place], [address]. tel:[phone] [facility], [address] [address], [place], [place], [id number], tel:[phone] [facility] LUQ PainDysphagi a, unspecifiedG astritisDysp hagia, Unspecified No Information Referring Provider: Annabella Prakash NP, [address], [place], [address]. tel:[phone] [facility], [address] [address], [place], [place], [id number], tel:[phone] Pediatric Clinic GI Symptoms or Concerns (chief complaint) LUQ Pain No Information Referring Provider: Annabella Prakash NP, [address], [place], [address]. tel:[phone] Family History Family Member Type Diagnosis Age At Onset Brother Problem (finding) Alive and well Mother Problem (finding) diabetes mellitus type 2 Maternal uncle Problem (finding) cancer of colon Father Problem (finding) diabetes mellitus type 1 Mother Problem (finding) stage 3 chronic kidney disease Mother Problem (finding) gallbladder disease Payers Payer name Insurance type Covered green party ID Authorlionela kellie(s) [employer] Of [facility] [id number] Social History Type Description Quantity Date Captured [...] her PCP and the emergency room at [facility] in [place], [place]. Lab work was completed in April [...] Mental Status Date Cognitive Assessment Orientation - Hope ed to time, place, person, situation. Patient Care Teams Name Effective Dates (start - stop) Status Members No Information
--- OUTSIDE RECORDS SUMMARY | 2023-03-26 13:20 | XMS_ITS | Clinical Summary ---
Author Name Unknown Organization [facility] Address [place], [place] [address] Care Team Providers Care Milking Worker Name Role Phone Kirera Garcia Primary Care Provider AzucenaMyra goodwin MD Unavailable [phone] Allergies No known active allergies Medications Medication [...] disord er), recurrent, severe, with psychosis 03/04/2023 [facility] Supervision of high-risk 3 Overview: [facility] ULTRASOUND/TESTING PATIENT Support person name: Icu Specialist: No ULTRASOUND TYPE: L2 REASON FOR VISIT: [...] ECHO: REFERRING PHYSICIAN/PHONE/LAST UPDATE: Dr. Myra Zeng, [place] [phone] Primary MD approves scheduling of recommended ultrasounds/testing: [...] Encounters Date Type Department Care Team Description 03/20/2023 Telephone [facility] [address] [place] [address] Ayesha Mackay DO Recheck 03/19/2023 Orders Only [facility] Scanner 1 scan: (1-Ord) [facility], URINE, 03/19/2023 03/19/2023 Orders Only [facility] Scanner 1 scan: (1-Ord) [facility], URINE CULTURE, 03/19/2023 03/19/2023 Orders Only [facility] Scanner 1 scan: (1-Ord) [facility], URINALYSIS, 03/19/2023 03/19/2023 Nurse Triage [facility] [address] Myra Zeng MD 03/18/2023 10:55 AM HIGH HEEL BUILDER OB Encounter [facility] [place] [facility] [address] Myra Zeng MD Care (32wk 2d/Had some discharge chunk of her mucus plug/The cut down to 8 hours has really helped) 03/18/2023 Travel 03/04/2023 11:20 AM HIGH HEEL BUILDER OB Encounter [facility] [place] [facility] [address] Myra Zeng MD Care (30w 2d/A lot of back pain, sent home from work yesterday. Lower back, left side worse than the right. Sharp pain and sometimes will go down her leg but mainly lower back) 03/04/2023 Travel 02/11/2023 10:55 AM HIGH HEEL BUILDER OB Encounter [facility] [place] [facility] [address] Myra Zeng MD Care (27w 2d); Immunization/Inject ion 02/11/2023 10:40 AM HIGH HEEL BUILDER Orders Only [address] [place] [address] Lab, [place] [facility] 02/11/2023 9:45 AM HIGH HEEL BUILDER Ancillary Procedure [address] [place] [address] 02/11/2023 Travel 01/14/2023 11:20 AM HIGH HEEL BUILDER OB Encounter [address] [facility] [address] Myra Zeng MD Care (23w 2d/Went to ED 01/09/23 had stomach flu symptoms into Thursday. Tested at home for COVID-19 and was negative but when she went to the ED she was positive. Tested again 01/13 she tested negative.) 01/14/2023 Travel 01/09/2023 Nurse Triage [facility] [address] [facility] [place] [address] Kierra Garcia PA Diarrhea; Vomiting 01/07/2023 2:20 PM HIGH HEEL BUILDER OB Encounter [facility] [address] [place] [address] Ayesha Mackay, Care (22 weeks 2 days); Urinary Problem (back pain 3 days and groin pain 1 week) 01/07/2023 Travel from Last 3 Months Immunizations Name [...] W/preservative 11/14/2019,12/16/2017 MMR 02/15/2004,01/08/2000 Meningococcal Vaccine (Menactra) 11/29/2015,1009/2012 Pneumococcal conj 7-Valent (Prevnar 7) 1,04/08/2000 Tdap [...] Estimated Date of Delivery 10/06/2022 - Present (03/26/2023) 05/11/2023 (set by Miguelito Zeng MD on 10/24/2022 based on Ultrasound on 10/13/2022) Dating Summary Based On [facility] [place] Diff Last Menstrual Period on 07/15/2022 (Exact Date) 04/21/2023 +2w6d Ultrasound on 10/13/2022 05/11/2023 Working GA:10w0d Vitals Pregravid Weight Height TWG (As of 03/26/2023) Pregrav id BMI 1.6 m (5' 3) Date GA Fund Present FHR Mvmt BP Weight Edema Alb Glu Ket Dil/ Eff/Sta 3 16w1d Inpatient data not displayed here. See encounter summary. 3 20w1d Inpatient data not displayed here. See encounter summary. Notes [facility] - GA:32w2d 03/18/2023 - [...] Myra Zeng MD .................... 03/18/2023 11:16 AM HEEL BUILDER [facility] - GA:30w2d 03/04/2023 - [...] Myra Zeng MD .................... 03/04/2023 11:41 AM HEEL BUILDER Progress Notes - OB Encounte r - 02/11/2023 - GA:27w2d 02/11/2023 - w2d - Myra Zeng MD SUBJECTIVE: Mariela Damon [...] Myra Zeng MD .................... 02/11/2023 10:55 AM HEEL BUILDER Progress Notes - OB Encounte r - [...] Myra Zeng MD .................... 01/14/2023 12:47 PM HEEL BUILDER Progress Notes - OB Encounte r - 01/07/2023 - GA:22w2d 01/07/2023 - w - Ayesha Mackay DO S: patient is [...] regular BM's. 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 01/07/2023 4:54 PM. HEEL BUILDER Progress Notes - Hospital En counter - 12/23/2022 - GA:20w1d 12/23/2022 - w1d - Jeff Kim MBBS MPP Ultrasound Visit Your patient had an ultrasound with [facility] on 12/23/2022. The report is ready and can be found in the [facility] review [facility]. Recommendations regarding further care are [...] were identified. The echocardiogram was read by [facility] as normal. Normal Deepest Vertical Pocket [...] 40. New government regulations related to the 21st Century Cures act require that this note be released to the patient immediately, sometimes before the referring provider has been contacted. A portion of the information was presented verbally to the patient. The remainder is submitted as background for the referring provider, to be discussed as needed. Medical Decision Making: Consult Low Level 37595 Limited number/complexity of problems including two or more self-limited problems, and BMI>40. Limited amount of data including review of prior ultrasound and review of prior external notes. Low risk of morbidity/mortality to the fetus from additional test or tx which (genetic amniocentesis was considered and declined). 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 MENSTRUAL HISTORY: Patient's last menstrual period was [...] of estimated date of delivery: No Thalassemia (Macedonian, Chadian, Mediterranean, or background): MCV less than 80: No Neural tube defect (Meningomyelocele, Spina bifida, or Anencephaly): No Congenital heart defect: No Down syndrome: No Brad-Sachs (Ashkenazi Oriental Orthodox, Cajun, Haitian Kittitian): No Dahiana disease (Ashkenazi Oriental Orthodox): No Familial dysautonomia (Ashkenazi Oriental Orthodox): No Sickle cell disease or trait (): No Hemophilia or other blood disorders: No Muscular dystrophy: No Cystic fibrosis: No Tru's chorea: No Intellectual disability and/or autism: No [...] Current Outpatient Medications Medication Sig Blood-Glucose Meter ([employer] Verio Meter) Dispense glucose meter, test strips [...] LC HCV ANTIBODY RFX TO QUANT PCR SERVICE UNIT OPERATOR PROBE - GC CHLAMYDIA DNA PCR [OTX0416] URINALYSIS W REFLEX MICROSCOPIC IF POSITIVE [32074.2] US 1ST TRIMESTER (< 14 weeks) [90600.0] EDUCATION/PATIENT INSTRUCTIONS - Advised patient to start/continue vitamin. - Discussed risk of using alcohol, tobacco, other drugs in . - Discussed healthy lifestyle in . - Provided copy of Beginnings book and book inserts, discussed auek-ucp-zuywsyj medications, and follow up. - Encouraged patient to call clinic at [phone] with any vaginal bleeding, fluid leaking from [...] Provider Department Center 10/28/2022 11:00 AM Saúl Christensen, DPM [facility] [place] MCCALL RN .................... 10/06/2022 11:23 AM Last Filed Vital Signs Vital Sign Reading Time Taken Comments Blood Pressure 121/85 03/18/2023 11:03 AM HIGH HEEL BUILDER Pulse 86 03/18/2023 11:03 AM HIGH HEEL BUILDER Temperature 36.7 ??C (98 ??F) 11/25/2022 11:51 AM CDT Respiratory Rate 18 11/25/2022 11:51 AM CDT Oxygen Saturation 98% 03/18/2023 11:03 AM HIGH HEEL BUILDER Inhaled Oxygen Concentration - - Weight 119.7 kg (264 lb) 03/18/2023 11:03 AM HIGH HEEL BUILDER Height 160 cm (5' 3) 11/25/2022 11:51 AM CDT Body Mass Index 46.77 11/25/2022 11:51 AM CDT Plan of Treatment Upcoming Encounters Date Type Department Care Team (Late st Contact Info) Description 04/01/2023 9:45 AM HIGH HEEL BUILDER Ancillary Procedure [facility] [address] [place] [address] 04/01/2023 10:30 AM HIGH HEEL BUILDER OB Encounter [facility] [address] [place] [address] Myra Zeng MD [address] [place] [address] 04/06/2023 8:15 AM HIGH HEEL BUILDER Ancillary Procedure [facility] [address] [facility] [address] 04/06/2023 9:30 AM HIGH HEEL BUILDER OB Encounter [facility] [address] [facility] [address] Myra Zeng MD [address] [facility] [address] 04/15/2023 1:10 PM HIGH HEEL BUILDER OB Encounter [facility] [address] [facility] [address] Myra Zeng MD [address] [facility] [address] 04/15/2023 1:45 PM HIGH HEEL BUILDER Ancillary Procedure [facility] [address] [facility] [address] 04/22/2023 10:30 AM HIGH HEEL BUILDER OB Encounter [facility] [address] [facility] [address] Myra Zeng MD [address] [facility] [address] 04/22/2023 1:00 PM HIGH HEEL BUILDER Ancillary Procedure [facility] [address] [facility] [address] 04/29/2023 10:30 AM HIGH HEEL BUILDER OB Encounter [facility] [address] [facility] [address] Myra Zeng MD [address] [place] [address] 04/29/2023 1:00 PM HIGH HEEL BUILDER Ancillary Procedure [facility] [address] [facility] [address] 05/06/2023 10:30 AM HIGH HEEL BUILDER OB Encounter [facility] [place] [address] Myra Zeng MD [address] [place] [address] 05/06/2023 1:00 PM HIGH HEEL BUILDER Ancillary Procedure [facility] [address] [place] [address] Health Maintenance Due Date Last Done Comments HPV series for age 9-26 (1 - 2-dose series) 2009 COVID-19 vaccine series ( - 2022- season) 2022 08/26/2021, 02/20/2021, 01/30/2021 Chlamydia for [...] Procedure Name Priority Date/Time Associated Diagnosis Comments SCAN-PATHOLOGY REPORT 03/19/2023 12:00 AM HIGH HEEL BUILDER SCAN-PATHOLOGY REPORT 03/19/2023 12:00 AM HIGH HEEL BUILDER SCAN-LABORATORY REPORT 03/19/2023 12:00 AM HIGH HEEL BUILDER US OB FOLLOW UP ANY TRI SINGLE TA Routine 02/11/2023 11:37 AM HIGH HEEL BUILDER Encounter for supervision of normal first in second trimester GLUCOSE,GESTATIONAL Routine 02/11/2023 1 1:13 AM HIGH HEEL BUILDER Encounter for supervision of normal first in second trimester TREPONEMA PALLIDUM Routine 02/11/2023 11 :13 AM HIGH HEEL BUILDER Encounter for supervision of normal first in second trimester HEMOGLOBIN Routine 02/11/2023 11:13 AM HIGH HEEL BUILDER Encounter for supervision of normal first in second trimester TRICHOMONAS, CONSUELO, AND BACTERIAL VAGINOSIS BY IRON Routine 01/07/2023 2:54 PM HIGH HEEL BUILDER Back pain, unspecified back location, unspecified back pain laterality, unspecified chronicity UA W/ SEDIMENT EXAM REFLEXED PER CRITERIA Routine 01/07/2023 2:20 PM HIGH HEEL BUILDER Back pain, unspecified back location, unspecified back pain laterality, unspecified chronicity from Last 3 Months Results * SCAN-PATHOLOGY REPORT (03/19/2023 12:00 AM HIGH HEEL BUILDER) Only the most recent of2 resultswithin the time period is included. Scanner OTHER * SCAN-LABORATORY REPORT (03/19/2023 12:00 AM HIGH HEEL BUILDER) Scanner OTHER * US OB FOLLOW UP ANY TRI SINGLE TA (02/11/2023 11:37 AM HIGH HEEL BUILDER) Anatomical Region Laterality Modality , 2or 3 TRIMESTER Ultrasound 02/11/2023 4:13 PM HIGH HEEL BUILDER Impressions 02/11/2023 4:13 PM HIGH HEEL BUILDER Sonographic gestational age 26 weeks 4 days and sonographic due date 05/16/2023. Sonographic age 5 days behind the clinical age. Estimated weight 22nd percentile. Abdominal circumference 35th percentile. BPD and HC 4th percentile. Dictated by Kp Wang MD @ Feb 11 2023 ??4:13PM (Electronically Signed) ?? Narrative 02/11/2023 4:13 PM HIGH HEEL BUILDER For Patients: ??As a result of the [...] dated 12/23/2022 the estimated weight was at [id number]%. BPD 4th percentile. HC 4th percentile. AC [...] US * TREPONEMA PALLIDUM (02/11/2023 11:13 AM HIGH HEEL BUILDER) TREPONEMA PALLIDUM Non-Reacti ve Non-Reacti ve 02/11/2023 5:43 PM HIGH HEEL BUILDER [facility] Blood BLOOD SPECIMEN / Unknown Butterfly / Unknown 02/11/2023 11:13 AM HIGH HEEL BUILDER 02/11/2023 11:13 AM HIGH HEEL BUILDER Myra Zeng MD [facility] [address] [place] [address], [place] * HEMOGLOBIN (02/11/2023 11:13 AM HIGH HEEL BUILDER) HEMOGLOBIN 12.4 12.0 - 16.0 g/dL 02/11/2023 11:16 AM HIGH HEEL BUILDER [facility] MCV 97 80 - 100 fL 02/11/2023 11:16 AM HIGH HEEL BUILDER [facility] Blood BLOOD SPECIMEN / Unknown Butterfly / Unknown 02/11/2023 11:13 AM HIGH HEEL BUILDER 02/11/2023 11:13 AM HIGH HEEL BUILDER Myra Zeng MD HEMATOLOGY [facility] [address] [place] [address], [place] [phone] * GLUCOSE,GESTATIONAL (02/11/2023 11:13 AM HIGH HEEL BUILDER) GLUCOSE,GESTAT IONAL 75 70 - 139 mg/dL 02/11/2023 11:34 AM HIGH HEEL BUILDER [facility] Blood BLOOD SPECIMEN / Unknown Butterfly / Unknown 02/11/2023 11:13 AM HIGH HEEL BUILDER 02/11/2023 11:13 AM HIGH HEEL BUILDER Myra Zeng MD CHEMISTRY [facility] [address] [place] [address], * TRICHOMONAS, CONSUELO, AND BACTERIAL VAGINOSIS BY IRON (01/07/2023 2:54 PM HIGH HEEL BUILDER) CONSUELO SPECIES Negative Negative 12:46 PM HIGH HEEL BUILDER [facility] CONSUELO GLABRATA Negative Negative 01/08/2023 12:46 PM HIGH HEEL BUILDER [facility] TRICHOMONAS VVA Negative Negative 12:46 PM HIGH HEEL BUILDER [facility] BACTERIAL VAGINOSIS Negative Negative 01/08/2023 12:46 PM HIGH HEEL BUILDER [facility] Other VAGINAL SWAB / Unknown Non-Blood / Unknown 01/07/2023 2:54 PM HIGH HEEL BUILDER 01/07/2023 3:15 PM HIGH HEEL BUILDER Ayesha Mackay DO MICROBIOLOGY [facility] [address] [place] [address], * (ABNORMAL) UA W/ SEDIMENT EXAM REFLEXED PER CRITERIA (01/07/2023 2:20 PM HIGH HEEL BUILDER) COLOR Yellow Yellow Color 01/07/2023 2:32 PM HIGH HEEL BUILDER [facility] CLARITY Clear Clear Clarity 01/07/2023 2:32 PM HIGH HEEL BUILDER [facility] SPECIFIC GRAVITY,URINE >=1.030(A) 1.010, 1.015, 1.020, 1.025 01/07/2023 2:32 PM HIGH HEEL BUILDER [facility] PH,URINE 6.0 6.0, 7.0, 8.0, 5.5, 6.5, 7.5, 8.5 01/07/2023 2:32 PM HIGH HEEL BUILDER [facility] UROBILINOGEN, QUALITATIVE Normal Normal EU/dl 01/07/2023 2:32 PM HIGH HEEL BUILDER [facility] PROTEIN, URINE Negative Negative mg/dL 01/07/2023 2:32 PM HIGH HEEL BUILDER [facility] GLUCOSE, URINE Negative Negative mg/dL 01/07/2023 2:32 PM HIGH HEEL BUILDER [facility] KETONES,URINE Trace(A) Negative mg/dL 01/07/2023 2:32 PM HIGH HEEL BUILDER [facility] BILIRUBIN,URI NE Negative Negative 01/07/2023 2:32 PM HIGH HEEL BUILDER [facility] OCCULT BLOOD,URINE Negative Negative 01/07/2023 2:32 PM HIGH HEEL BUILDER [facility] NITRITE Negative Negative 01/07/2023 2:32 PM HIGH HEEL BUILDER [facility] LEUKOCYTE ESTERASE Negative Negative 01/07/2023 2:32 PM HIGH HEEL BUILDER [facility] Urine URINE SPECIMEN / Unknown Non-Blood / Unknown 01/07/2023 2:20 PM HIGH HEEL BUILDER 01/07/2023 2:29 PM HIGH HEEL BUILDER Ayesha Mackay DO URINE Performing Organization Address [facility]/State/ZIP Co de Phone Number [facility] [address] [place] [address], from Last 3 Months Care Teams Milking Worker Relationship Specialty Start Date End Date Kierra Garcia PA [address] [place] [address] PCP - General Physician Dye Machine Tender 03/13/21 Myra Zeng MD [address] [facility] [address] Family Practice 11/19/22
[2023-03-26 13:22] VITALS: BP 157/93; PULSE 96
[2023-03-26 13:38] VITALS: BP 120/78; PULSE 96
[2023-03-26 13:40] VITALS: TEMP 36.8
--- NOTE | 2023-03-26 13:46 | CRLHL7_ITS ---
For Patients: As a result of the Century Cures Act, medical imaging exams and procedure reports are released immediately into your electronic medical record. You may view this report before your referring provider. If you have questions, please contact your health care provider. INDICATION: Patient fell COMPARISON: none TECHNIQUE: Real time arevalo scale imaging of the fetus was performed. Without non-stress testing. FINDINGS: Sonographic imaging demonstrates a single living intrauterine gestation. Fetus demonstrates a regular cardiac rate of 150 beats per minute. Fetus has a vertex position. The amniotic fluid volume appears normal and there is a single deepest pocket measurement of 6.4 cm. The fetus was active and demonstrated normal breathing movements. There was normal flexion and extension of the trunk and extremities. IMPRESSION: Normal biophysical profile score of 8 out of 8. Dictated by Kp Wang MD @ 03/26/2023 3:13:13 PM (Electronically Signed)
[2023-03-26 13:58] VITALS: BP 112/77; PULSE 91
[2023-03-26 14:12] LABS: Hematocrit 37.6 % (33.0-51.0); Hemoglobin* 12.7 gm/dL (12.0-16.0); Mean Corpuscular HGB Conc 34 gm/dL (32-36); Mean Corpuscular Hemoglobin 32 pg (26-34); Mean Corpuscular Volume 94 fL (80-100); Platelet Count* 297 K/uL (140-440); Red Blood Count 3.99 m/uL (4.00-5.20); White Blood Count* 11.03 K/uL (4.50-11.00)
[2023-03-26 14:13] LABS: Slide Review Reflex No
[2023-03-26 14:32] VITALS: BP 118/78; PULSE 91
[2023-03-26 14:41] LABS: Alanine Aminotransferase* 26 U/L (4-35); Aspartate Amino Transferase* 26 U/L (12-35); Blood Urea Nitrogen* 13 mg/dL (5-24); Creatinine* 0.6 mg/dL (0.5-1.5); Estimated Glomerular Filt Rate 128 ml/min
[2023-03-26 16:06] LABS: Total Protein Urine < 5 mg/dL
[2023-03-26 16:07] LABS: Creatinine Urine 165.9 mg/dL
--- NOTE | 2023-04-02 18:12 | PC.OBNST ---
NST Note NST Note Start: 03/26/23 12:42 Freq: ONCE Status: Discharge Protocol: Document 03/26/23 16:52 [facility] (Rec: 03/26/23 16:54 [facility] [id number]) NST Note 1 Para (# of births) 0 EDC 05/11/23 Gestational Age In Weeks & Days 33 Weeks & 3 Days Patient Presented with Complaint(s) of Contractions/cramping,Other If Observation after an injury, describe Pt fell on ice at 0500, felt increased cramping in the hours after If Pain, describe location Lower abdomen cramping Reactive Yes Appropriate for Gestational Age Yes RN Isabel Lebron RN Date 03/26/23 Appropriate for Gestational Age Yes DELFINO Crocker Date 03/26/23 OB NST charge Yes Complete NST Note via Write Note Yes The provider's electronic signature indicates the NST is reactive/appropriate for gestational age. *Note to provider: If an addendum is required, open the patient's chart and click on the note under the Nurse/Allied Health tab.
--- NOTE | 2023-04-03 06:33 | PC.NURSE ---
Center telephone call less than 37 weeks Date of call: [04/03/23] Time of call: [627] Name of person calling: [Mariela Damon] Best phone # to reach you at: [[phone]] patient: G: [1] P: [0] EDC: [05/11/23] Gestational age: [34.4] weeks Provider: [Azucena] Reason for calling (patient's words): [I just got off the phone with the [facility] triage nurse and they told me to come in and be seen. I'm 34 weeks and corin every 5-8 min lasting 25-30 seconds. I'm leaking clear fluid. ] Per patient baby is moving around normally and there is no blood. Patient is greater than 20 weeks and less than 37 weeks and instructed to come to Center for evaluation. Patient verbalized understanding: [yes] Is patient coming for evaluation? [yes] Telephone conversation guided by approved policy and flow chart, Telephone Calls From Patient's, approved at [facility] perinatology Committee October 2022.
--- NOTE | 2023-04-15 11:23 | PC.OBNST ---
NST Note NST Note Start: 03/26/23 12:42 Freq: ONCE Status: Discharge Protocol: Document 03/26/23 16:52 [facility] (Rec: 03/26/23 16:54 [facility] [id number]) NST Note 1 Para (# of births) 0 EDC 05/11/23 Gestational Age In Weeks & Days 33 Weeks & 3 Days Patient Presented with Complaint(s) of Contractions/cramping,Other If Observation after an injury, describe Pt fell on ice at 0500, felt increased cramping in the hours after If Pain, describe location Lower abdomen cramping Reactive Yes Appropriate for Gestational Age Yes RN Isabel Lerbon RN Date 03/26/23 Appropriate for Gestational Age Yes DELFINO Crocker Date 03/26/23 OB NST charge Yes Complete NST Note via Write Note Yes The provider's electronic signature indicates the NST is reactive/appropriate for gestational age. *Note to provider: If an addendum is required, open the patient's chart and click on the note under the Nurse/Allied Health tab.
== END 2023-03-26 17:06 | disposition home or self-care (01) ==
LOC: OB OUT 12:53 → OB 12:53
PROVIDERS: PCP Family Medicine; Visit Provider Family Medicine
DX: O26.899 Other specified pregnancy related conditions, unspecified trimester (principal); W19.XXXA Unspecified fall, initial encounter; Y92.9 Unspecified place or not applicable
CPT/HCPCS: 36415; 59025; 76819; 82565; 82570; 84156; 84450; 84460; 84520; 85027; G0463

== ENCOUNTER 2023-04-03 07:12 | Outpatient (CLI) | payer BC, SELFPAY ==
[2023-04-03 07:25] VITALS: BP 138/89; PULSE 80; TEMP 36.6
[2023-04-03 07:56] VITALS: BP 122/87; PULSE 86
[2023-04-03 07:59] LABS: Amnisure Rom* Negative
[2023-04-03 08:10] LABS: Appearance Urine Clear (Clear); Bilirubin Urine Negative (Negative); Blood Urine Negative (Negative); Color Urine Yellow (Yellow); Glucose Urine Negative (Negative); Ketones Urine Negative (Negative); Leukocyte Esterase Urine Negative (Negative); Nitrite Urine Negative (Negative); Protein Urine Negative (Negative); Specific Gravity Urine 1.025 (1.000-1.030); Urobilinogen Urine 0.2 (0.2-1.0)
[2023-04-03] MEDS: ACETAMINOPHEN 500 MG TABLET 1000 MG PO (08:27)
[2023-04-03 10:01] LABS: Total Protein Urine 7 mg/dL
[2023-04-03] MEDS: LACTATED RINGERS 1000 ML 1,000 ML IV (10:30)
[2023-04-03 10:32] LABS: Hemoglobin* 13.4 gm/dL (12.0-16.0); Mean Corpuscular HGB Conc 34 gm/dL (32-36); Mean Corpuscular Hemoglobin 32 pg (26-34); Mean Corpuscular Volume 95 fL (80-100); Platelet Count* 239 K/uL (140-440); Red Blood Count 4.22 m/uL (4.00-5.20); White Blood Count* 8.45 K/uL (4.50-11.00)
[2023-04-03 10:36] LABS: Slide Review Reflex No
[2023-04-03 10:41] VITALS: PULSE 83; O2SAT 96
[2023-04-03 10:47] LABS: Creatinine* 0.5 mg/dL (0.5-1.5); Estimated Glomerular Filt Rate 134 ml/min
[2023-04-03 10:48] LABS: Alanine Aminotransferase* 24 U/L (4-35); Blood Urea Nitrogen* 18 mg/dL (5-24)
[2023-04-03 11:02] LABS: Aspartate Amino Transferase* 37 U/L (12-35)
--- NOTE | 2023-04-03 12:12 | PC.OBNST ---
NST Note NST Note Start: 04/03/23 07:18 Freq: ONCE Status: Active Protocol: Document 04/03/23 12:10 HCR (Rec: 04/03/23 12:12 [facility] [id number]) NST Note 1 Para (# of births) 0 EDC 05/11/23 Gestational Age In Weeks & Days 34 Weeks & 4 Days Patient Presented with Complaint(s) of Contractions/cramping,Leaking fluid Other Complaints See OB assessment Reactive Yes Appropriate for Gestational Age Yes RN Olivia Martinez, RN Date 04/03/23 Reactive Yes Appropriate for Gestational Age Yes DELFINO Banerjee RNC Date 04/03/23 OB NST charge Yes Complete NST Note via Write Note Yes The provider's electronic signature indicates the NST is reactive/appropriate for gestational age. *Note to provider: If an addendum is required, open the patient's chart and click on the note under the Nurse/Allied Health tab.
--- NOTE | 2023-04-10 09:35 | PC.OBNST ---
NST Note NST Note Start: 04/03/23 07:18 Freq: ONCE Status: Discharge Protocol: Document 04/03/23 12:10 HCR (Rec: 04/03/23 12:12 [facility]CR [id number]) NST Note 1 Para (# of births) 0 EDC 05/11/23 Gestational Age In Weeks & Days 34 Weeks & 4 Days Patient Presented with Complaint(s) of Contractions/cramping,Leaking fluid Other Complaints See OB assessment Reactive Yes Appropriate for Gestational Age Yes RN Olivia Martinez, RN Date 04/03/23 Reactive Yes Appropriate for Gestational Age Yes DELFINO Banerjee RNC Date 04/03/23 OB NST charge Yes Complete NST Note via Write Note Yes The provider's electronic signature indicates the NST is reactive/appropriate for gestational age. *Note to provider: If an addendum is required, open the patient's chart and click on the note under the Nurse/Allied Health tab.
== END 2023-04-03 11:56 | disposition home or self-care (01) ==
LOC: OB OUT 07:13 → OB 07:13
PROVIDERS: PCP Family Medicine; Visit Provider Family Medicine
DX: O47.03 False labor before 37 completed weeks of gestation, third trimester (principal); Z3A.34 34 weeks gestation of pregnancy
CPT/HCPCS: 36415; 59025; 81003; 82565; 82570; 84112; 84156; 84450; 84460; 84520; 85027; G0463; A9270; J7120

== ENCOUNTER 2023-04-11 14:28 | Outpatient (CLI) | payer BC, SELFPAY ==
--- OUTSIDE RECORDS SUMMARY | 2023-04-11 14:31 | XMS_ITS | Clinical Summary ---
Author Name Unknown Organization [facility] Address [place], [place] [address] Care Team Providers Care Community Aide Name Role Phone Kierra Garcia Primary Care Provider AzucenaMyra goodwin MD Unavailable [phone] Allergies No known active allergies Medications Medication [...] disord er), recurrent, severe, with psychosis 03/04/2023 [facility] Supervision of high-risk 3 Overview: [facility] ULTRASOUND/TESTING PATIENT Support person name: X Ray Inspector: No ULTRASOUND TYPE: L2 REASON FOR [...] ECHO: REFERRING PHYSICIAN/PHONE/LAST UPDATE: Dr. Myra Zeng, [place] [phone] Primary MD approves scheduling of recommended ultrasounds/testing: [...] Encounters Date Type Department Care Team Description 04/06/2023 9:30 AM CHEMICAL ENGINEERING PROFESSOR OB Encounter [facility] [address] [place] [address] Myra Zeng MD Care (35w/Contractions over the weekend, went to center.) 04/06/2023 8:15 AM CHEMICAL ENGINEERING PROFESSOR Ancillary Procedure [facility] [address] [place] [address] Arrived 04/06/2023 Travel 04/03/2023 Orders Only [facility] Scanner 1 scan: (1-Ord) [facility], RESULTS, 04/03/2023 04/03/2023 Orders Only [facility] HIM SERVICES Scanner 1 scan: (1-Ord) [facility], RESULT, 04/03/2023 04/03/2023 Nurse Triage [facility] [address] [place] [address] Kierra Garcia PA Problem 04/01/2023 10:30 AM CHEMICAL ENGINEERING PROFESSOR OB Encounter [facility] [address] [facility] [address] Myra Zeng MD Care (34w 2d/More leakage Unsure if it is urine or discharge) 04/01/2023 9:45 AM CHEMICAL ENGINEERING PROFESSOR Ancillary Procedure [facility] [address] [place] [address] 04/01/2023 Travel 03/27/2023 Orders Only [facility] [address] [place] [address] Myra Zeng MD 1 scan: (1-Ord) [facility], OB, 03/26/2023 03/26/2023 Orders Only [facility] HIM SERVICES Scanner 1 scan: (1-Ord) [place], URINE, 03/26/2023 03/26/2023 Orders Only [facility] HIM SERVICES Scanner 1 scan: (1-Ord) [facility], RESULTS, 03/26/2023 03/20/2023 Telephone [facility] [address] [place] [address] Ayesha Mackay DO Recheck 03/19/2023 Orders Only [facility] HIM SERVICES Scanner 1 scan: (1-Ord) [facility], URINE, 03/19/2023 03/19/2023 Orders Only [facility] Scanner 1 scan: (1-Ord) [place], URINE CULTURE, 03/19/2023 03/19/2023 Orders Only [facility] Scanner 1 scan: (1-Ord) [place] [facility], URINALYSIS, 03/19/2023 03/19/2023 Nurse Triage [facility] [address] [place] [address] Myra Zeng MD 03/18/2023 10:55 AM CHEMICAL ENGINEERING PROFESSOR OB Encounter [facility] [address] [facility] [address] Myra Zeng MD Care (32wk 2d/Had some discharge chunk of her mucus plug/The cut down to 8 hours has really helped) 03/18/2023 Travel 03/04/2023 11:20 AM CHEMICAL ENGINEERING PROFESSOR OB Encounter [facility] [address] [place] [address] Myra Zeng MD Care (30w 2d/A lot of back pain, sent home from work yesterday. Lower back, left side worse than the right. Sharp pain and sometimes will go down her leg but mainly lower back) 03/04/2023 Travel 02/11/2023 10:55 AM CHEMICAL ENGINEERING PROFESSOR OB Encounter [place] [address] [place] [address] Myra Zeng MD Care (27w 2d); Immunization/Inject ion 02/11/2023 10:40 AM CHEMICAL ENGINEERING PROFESSOR Orders Only [facility] [address] [place] [address] Lab, [facility] 02/11/2023 9:45 AM CHEMICAL ENGINEERING PROFESSOR Ancillary Procedure [place] [address] [address] [place] [address] 02/11/2023 Travel 01/14/2023 11:20 AM CHEMICAL ENGINEERING PROFESSOR OB Encounter [place] [address] [address] [place] [address] Myra Zeng MD Care (23w 2d/Went to ED 01/09/23 had stomach flu symptoms into Thursday. Tested at home for COVID-19 and was negative but when she went to the ED she was positive. Tested again 01/13 she tested negative.) 01/14/2023 Travel 01/09/2023 Nurse Triage [facility] [address] [place] [address] Kierra Garcia PA Diarrhea; Vomiting from Last 3 Months Immunizations Name Administration [...] Estimated Date of Delivery 10/06/2022 - Present (04/11/2023) 05/11/2023 (set by Miguelito Zeng MD on 10/24/2022 based on Ultrasound on 10/13/2022) Dating Summary Based On MIMI GA Diff Last Menstrual Period on 07/15/2022 (Exact Date) 04/21/2023 +2w6d Ultrasound on 10/13/2022 05/11/2023 Working GA:10w0d Vitals Pregravid Weight Height TWG (As of 04/11/2023) Pregrav id BMI 1.6 m (5' 3) Date GA Fund Present FHR Mvmt BP Weight Edema Alb Glu Ket Dil/ Eff/Sta 3 16w1d Inpatient data not displayed here. See encounter summary. 3 20w1d Inpatient data not displayed here. See encounter summary. Notes Progress Notes - OB Encounte r - 04/06/2023 - GA:35w0d 04/06/2023 - 35w0d - Myra Zeng MD SUBJECTIVE: Mariela Damon is a 22 y.o. female at 35 weeks. No concerns. Had contractions on 04/03, was seen in center and they stopped. See visit comments. OBJECTIVE: see OB vitals flow sheet BPP 10/07 ASSESSMENT : 35 weeks gestation obesity PLAN: labor signs and symptoms reviewed with patient including pain, cramping, bleeding or leaking fluid. Anesthesia consult placed. RTC 1 weeks. BPP weekly, follow up growth ultrasound at 37 weeks. Myra Zeng MD .................... 04/06/2023 9:07 AM ICAL ENGINEERING PROFESSOR Progress Notes - OB Encounte r - 04/01/2023 - GA:34w2d 04/01/2023 - 34w2d - Myra Zeng MD SUBJECTIVE: Mariela Damon is a 22 y.o. female at 34+2 weeks. She has been having increased watery discharge yesterday. Nothing today. Occasional contractions. She did have a fall since our last visit, was seen at L&D and was corin, but those stopped. OBJECTIVE: see OB vitals flow sheet ASSESSMENT : 34+1 weeks gestation Maternal obesity PLAN: labor signs and symptoms reviewed with patient including pain, cramping, bleeding or leaking fluid. Weekly BPP and visits until delivery. EFW at 12% today with HC/BPD3%/2%, discussed with perinatology, will add growth at 37 weeks BPP. Will add dopplars if <10% EFW or AC. Myra Zeng MD .................... 04/01/2023 10:29 AM ICAL ENGINEERING PROFESSOR Progress Notes - OB Encounte r - [...] Myra Zeng MD .................... 03/18/2023 11:16 AM ICAL ENGINEERING PROFESSOR Progress Notes - OB Javierte r - 03/04/2023 - GA:30w2d 03/04/2023 - - Myra Zeng MD SUBJECTIVE: Mariela [...] Myra Zeng MD .................... 03/04/2023 11:41 AM ICAL ENGINEERING PROFESSOR Progress Notes - OB Encounte r - [...] Myra Zeng MD .................... 02/11/2023 10:55 AM ICAL ENGINEERING PROFESSOR Progress Notes - OB Encounte r - [...] Myra Zeng MD .................... 01/14/2023 12:47 PM ICAL ENGINEERING PROFESSOR Progress Notes - OB Encounte r - 01/07/2023 - GA:22w2d 01/07/2023 - 2d - Ayesha Mackay DO S: patient is [...] regular BM's. 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 01/07/2023 4:54 PM. ICAL ENGINEERING PROFESSOR Progress Notes - Hospital En counter - 12/23/2022 - GA:20w1d 12/23/2022 - 20w1d - Jeff Kim MBBS MPP Ultrasound Visit Your patient had an ultrasound with [facility] on 12/23/2022. The report is ready and can be found in the Results review section of the [facility] chart. Recommendations regarding further care are listed below. The Impression from the report is below. Thank you for sending her to see us. Referred By: MYRA ZENG MD INDICATION: BMI greater than 40 Indications Code 20 weeks gestation of Z3A.20 Morbid Obesity - BMI >40 Low Risk NIPT Depression & ADHD, Meds: Zoloft, Zofran IMPRESSION: Intrauterine at 20w 1d. presentation is [...] needed. Medical Decision Making: Consult Low Level [address] Limited number/complexity of problems including two or more self-limited problems, and BMI>40. Limited amount of data including review of prior ultrasound and review of prior external notes. Low risk of morbidity/mortality to the fetus from additional test or tx which (genetic amniocentesis was considered and declined). 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 MENSTRUAL HISTORY: Patient's last menstrual period was [...] of estimated date of delivery: No Thalassemia (Chinese, Moroccan, Mediterranean, or background): MCV less than 80: No Neural tube defect (Meningomyelocele, Spina bifida, or Anencephaly): No Congenital heart defect: No Down syndrome: No Brad-Sachs (Ashkenazi Faith, Cajun, Georgian [place]): No Dahiana disease (Ashkenazi Faith): No Familial dysautonomia (Ashkenazi Faith): No Sickle cell disease or trait (): No Hemophilia or other blood disorders: No Muscular dystrophy: No Cystic fibrosis: No [place]'s chorea: No Intellectual disability and/or autism: No [...] LC HCV ANTIBODY RFX TO QUANT PCR PROCESS ARTIST PROBE - GC CHLAMYDIA DNA PCR [[id number]] URINALYSIS W REFLEX MICROSCOPIC IF POSITIVE [12468.2] US 1ST TRIMESTER (< 14 weeks) [73690.0] EDUCATION/PATIENT INSTRUCTIONS - Advised patient to start/continue vitamin. - Discussed risk of using alcohol, tobacco, other drugs in . - Discussed healthy lifestyle in . - Provided copy of Beginnings book and book inserts, discussed [id number] medications, and follow up. - Encouraged patient to call clinic at [phone] with any vaginal bleeding, fluid leaking from [...] Sign Reading Time Taken Comments Blood Pressure 129/83 04/06/2023 8:56 AM CHEMICAL ENGINEERING PROFESSOR Pulse 72 04/06/2023 8:56 AM CHEMICAL ENGINEERING PROFESSOR Temperature 36.7 ??C (98 ??F) 11/25/2022 11: 51 AM CDT Respiratory Rate 18 11/25/2022 11:5 1 AM CDT Oxygen Saturation 99% 04/06/2023 8:56 AM CHEMICAL ENGINEERING PROFESSOR Inhaled Oxygen Concentration - - Weight 122.4 kg (269 lb 12.8 oz) 04/06/2023 8:56 AM CHEMICAL ENGINEERING PROFESSOR Height 160 cm (5' 3) 11/25/2022 11:51 AM CDT Body Mass Index 47.79 11/25/2022 11:51 AM CDT Plan of Treatment Upcoming Encounters Date Type Department Care Team (Late st Contact Info) Description 04/15/2023 1:10 PM CHEMICAL ENGINEERING PROFESSOR OB Encounter [facility] [address] [place] [address] Myra Zeng MD [address] [place] [address] 04/15/2023 1:45 PM CHEMICAL ENGINEERING PROFESSOR Ancillary Procedure [facility] [address] [place] [address] 04/22/2023 10:30 AM CHEMICAL ENGINEERING PROFESSOR OB Encounter [facility] [address] [place] [address] Myra Zeng MD [address] [place] [address] 04/22/2023 1:00 PM CHEMICAL ENGINEERING PROFESSOR Ancillary Procedure [facility] [address] [place] [address] 04/29/2023 10:30 AM CHEMICAL ENGINEERING PROFESSOR OB Encounter [facility] [address] [place] [address] Myra Zeng MD [address] [place] [address] 04/29/2023 1:00 PM CHEMICAL ENGINEERING PROFESSOR Ancillary Procedure [facility] [address] [place] [address] 05/06/2023 10:30 AM CHEMICAL ENGINEERING PROFESSOR OB Encounter [facility] [address] [place] [address] [place] [address] 05/06/2023 1:00 PM CHEMICAL ENGINEERING PROFESSOR Ancillary Procedure [facility] [address] [place] [address] Health Maintenance Due Date Last Done Comments [...] Priority Date/Time Associated Diagnosis Comments US OB BIOPHYSICAL PROFILE SINGLE WO NST Routine 04/06/2023 8:25 AM CHEMICAL ENGINEERING PROFESSOR Obesity affecting in third trimester, unspecified obesity type SCAN-LABORATORY REPORT 04/03/2023 12:00 AM CHEMICAL ENGINEERING PROFESSOR SCAN-LABORATORY REPORT 04/03/2023 12:00 AM CHEMICAL ENGINEERING PROFESSOR US OB BIOPHYSICAL PROFILE AND FOLLOW UP SINGLE Routine 04/01/2023 10:27 AM CHEMICAL ENGINEERING PROFESSOR Obesity affecting in third trimester, unspecified obesity type SCAN-LABORATORY REPORT 03/26/2023 12:00 AM CHEMICAL ENGINEERING PROFESSOR SCAN-LABORATORY REPORT 03/26/2023 12:00 AM CHEMICAL ENGINEERING PROFESSOR US OB BIOPHYSICAL PROFILE SINGLE WO NST Routine 03/26/2023 12:00 AM CHEMICAL ENGINEERING PROFESSOR Obesity affecting in third trimester, unspecified obesity type SCAN-PATHOLOGY REPORT 03/19/2023 12:00 AM CHEMICAL ENGINEERING PROFESSOR SCAN-PATHOLOGY REPORT 03/19/2023 12:00 AM CHEMICAL ENGINEERING PROFESSOR SCAN-LABORATORY REPORT 03/19/2023 12:00 AM CHEMICAL ENGINEERING PROFESSOR US OB FOLLOW UP ANY TRI SINGLE TA Routine 02/11/2023 11:37 AM CHEMICAL ENGINEERING PROFESSOR Encounter for supervision of normal first in second trimester GLUCOSE,GESTATIONAL Routine 02/11/2023 1 1:13 AM CHEMICAL ENGINEERING PROFESSOR Encounter for supervision of normal first in second trimester TREPONEMA PALLIDUM Routine 02/11/2023 11 :13 AM CHEMICAL ENGINEERING PROFESSOR Encounter for supervision of normal first in second trimester HEMOGLOBIN Routine 02/11/2023 11:13 AM CHEMICAL ENGINEERING PROFESSOR Encounter for supervision of normal first in second trimester from Last 3 Months Results * US OB BIOPHYSICAL PROFILE SINGLE WO NST (04/06/2023 8:25 AM CHEMICAL ENGINEERING PROFESSOR) Only the most recent of2 resultswithin the time period is included. Anatomical Region Laterality Modality Ultrasound 04/06/2023 9:16 AM CHEMICAL ENGINEERING PROFESSOR Impressions 04/06/2023 9:16 AM CHEMICAL ENGINEERING PROFESSOR Normal biophysical profile score of 8 out of 8. Dictated by Kp Wang MD @ 04/06/2023 9:16:52 AM (Electronically Signed) Narrative 04/06/2023 9:16 AM CHEMICAL ENGINEERING PROFESSOR For Patients: ??As a result of the Cures Act, medical imaging exams and procedure reports are released immediately into your electronic medical record. ??You may view this report before your referring provider. ??If you have questions, please contact your health care provider. INDICATION: Obesity affecting in third trimester COMPARISON: 04/01/2023 TECHNIQUE: Real time arevalo scale imaging of the fetus was performed. Without non-stress testing. FINDINGS: Sonographic imaging demonstrates a single living intrauterine gestation. ??Fetus demonstrates a regular cardiac rate of 161 beats per minute. ??Fetus has a vertex position. The amniotic fluid volume appears normal and there is a single deepest pocket measurement of 6.3 cm. ??The fetus was active and demonstrated normal breathing movements. There was normal flexion and extension of the trunk and extremities. ?? Procedure Note Kp Wang MD - 04/06/2023 For Patients: As a result of the Cures Act, medical imagingexams and procedure reports are released immediately into your electronicmedical record. You may view this report before your referring provider.If you have questions, please contact your health care provider. INDICATION: Obesity affecting in third trimester COMPARISON: 04/01/2023 TECHNIQUE: Real time arevalo scale imaging of the fetus was performed. Withoutnon-stress testing. FINDINGS: Sonographic imaging demonstrates a single living intrauterine gestation.Fetus demonstrates a regular cardiac rate of 161 beats per minute. Fetushas a vertex position. The amniotic fluid volume appears normal and thereis a single deepest pocket measurement of 6.3 cm. The fetus was activeand demonstrated normal breathing movements. There was normal flexion andextension of the trunk and extremities. IMPRESSION: Normal biophysical profile score of 8 out of 8. Dictated by Kp Wang MD @ 04/06/2023 9:16:52 AM (Electronically Signed) Myra Zeng MD US * SCAN-LABORATORY REPORT (04/03/2023 12:00 AM CHEMICAL ENGINEERING PROFESSOR) Only the most recent of5 resultswithin the time period is included. Scanner OTHER * US OB BIOPHYSICAL PROFILE AND FOLLOW UP SINGLE (04/01/2023 10:27 AM CHEMICAL ENGINEERING PROFESSOR) Anatomical Region Laterality Modality Ultrasound 04/01/2023 12:0 6 PM CHEMICAL ENGINEERING PROFESSOR Impressions 04/01/2023 12:06 PM CHEMICAL ENGINEERING PROFESSOR Normal biophysical profile score 8/8. Sonographic gestational age 32 weeks 4 days and sonographic due date 05/23/2023. Sonographic age 12 days behind the clinical age. Estimated weight 12th percentile. Abdominal circumference 34th percentile. BPD 3rd percentile and HC less than 2nd percentile. Dictated by Kp Wang MD @ 04/01/2023 12:06:43 PM (Electronically Signed) Narrative 04/01/2023 12:06 PM CHEMICAL ENGINEERING PROFESSOR For Patients: ??As a result of the Century Cures Act, medical imaging exams and procedure reports are released immediately into your electronic medical record. ??You may view this report before your referring provider. ??If you have questions, please contact your health care provider. INDICATION: Obesity affecting in third trimester TECHNIQUE: Real time arevalo scale imaging of the fetus was performed. COMPARISON: 02/11/2023 FINDINGS: Sonographic imaging demonstrates a single living intrauterine gestation. ??Fetus demonstrates a regular cardiac rate of 161 beats per minute. ??Fetus has a vertex position. The placenta lies posteriorly without evidence of placenta previa. ??Amniotic fluid volume appears normal and there is a single deepest pocket of 6.8 cm. The estimated weight is 2080gm which lies at the 12th %. On the prior OB ultrasound dated 02/11/2023 the estimated weight was at the 22nd percentile. BPD 3rd percentile. HC less than 2nd percentile. AC 34th percentile. FL 8th percentile. The fetus was active and demonstrated normal breathing movements. ??There was normal flexion and extension of the trunk and extremities. Procedure Note Kp Wang MD - 04/01/2023 For Patients: As a result of the Cures Act, medical imagingexams and procedure reports are released immediately into your electronicmedical record. You may view this report before your referring provider.If you have questions, please contact your health care provider. INDICATION: Obesity affecting in third trimester TECHNIQUE: Real time arevalo scale imaging of the fetus was performed. COMPARISON: 02/11/2023 FINDINGS: Sonographic imaging demonstrates a single living intrauterine gestation.Fetus demonstrates a regular cardiac rate of 161 beats per minute. Fetushas a vertex position. The placenta lies posteriorly without evidence ofplacenta previa. Amniotic fluid volume appears normal and there is asingle deepest pocket of 6.8 cm. The estimated weight is 2080gmwhich lies at the 12th %. On the prior OB ultrasound dated 02/11/2023 theestimated weight was at the 22nd percentile. BPD 3rd percentile. HCless than 2nd percentile. AC 34th percentile. FL 8th percentile. The fetus was active and demonstrated normal breathing movements. Therewas normal flexion and extension of the trunk and extremities. IMPRESSION: Normal biophysical profile score 8/8. Sonographic gestational age 32 weeks 4 days and sonographic due date05/23/2023. Sonographic age 12 days behind the clinical age. Estimated weight 12th percentile. Abdominal circumference 34thpercentile. BPD 3rd percentile and HC less than 2nd percentile. Dictated by Kp Wang MD @ 04/01/2023 12:06:43 PM (Electronically Signed) Myra Zeng MD US * SCAN-PATHOLOGY REPORT (03/19/2023 12:00 AM CHEMICAL ENGINEERING PROFESSOR) Only the most recent of2 resultswithin the time period is included. Scanner OTHER * US OB FOLLOW UP ANY TRI SINGLE TA (02/11/2023 11:37 AM CHEMICAL ENGINEERING PROFESSOR) Anatomical Region Laterality Modality , 2or 3 TRIMESTER Ultrasound 02/11/2023 4:13 PM CHEMICAL ENGINEERING PROFESSOR Impressions 02/11/2023 4:13 PM CHEMICAL ENGINEERING PROFESSOR Sonographic gestational age 26 weeks 4 days and sonographic due date 05/16/2023. Sonographic age 5 days behind the clinical age. Estimated weight 22nd percentile. Abdominal circumference 35th percentile. BPD and HC 4th percentile. Dictated by Kp Wang MD @ Feb 11 2023 ??4:13PM (Electronically Signed) ?? Narrative 02/11/2023 4:13 PM CHEMICAL ENGINEERING PROFESSOR For Patients: ??As a result of the [...] dated 12/23/2022 the estimated weight was at dao24he%. BPD 4th percentile. HC 4th percentile. AC [...] US * TREPONEMA PALLIDUM (02/11/2023 11:13 AM CHEMICAL ENGINEERING PROFESSOR) TREPONEMA PALLIDUM Non-Reacti ve Non-Reacti ve 02/11/2023 5:43 PM CHEMICAL ENGINEERING PROFESSOR [facility] Blood BLOOD SPECIMEN / Unknown Butterfly / Unknown 02/11/2023 11:13 AM CHEMICAL ENGINEERING PROFESSOR 02/11/2023 11:13 AM CHEMICAL ENGINEERING PROFESSOR [facility]ra [facility]eng [facility] [address] [place] [address], [place] * HEMOGLOBIN (02/11/2023 11:13 AM CHEMICAL ENGINEERING PROFESSOR) HEMOGLOBIN 12.4 12.0 - 16.0 g/dL 02/11/2023 11:16 AM CHEMICAL ENGINEERING PROFESSOR [facility] MCV 97 80 - 100 fL 02/11/2023 11:16 AM CHEMICAL ENGINEERING PROFESSOR [facility] Blood BLOOD SPECIMEN / Unknown Butterfly / Unknown 02/11/2023 11:13 AM CHEMICAL ENGINEERING PROFESSOR 02/11/2023 11:13 AM CHEMICAL ENGINEERING PROFESSOR Myra Zeng MD HEMATOLOGY [facility] [address] [place] [address], [place] [phone] * GLUCOSE,GESTATIONAL (02/11/2023 11:13 AM CHEMICAL ENGINEERING PROFESSOR) GLUCOSE,GESTAT IONAL 75 70 - 139 mg/dL 02/11/2023 11:34 AM CHEMICAL ENGINEERING PROFESSOR [facility] Blood BLOOD SPECIMEN / Unknown Butterfly / Unknown 02/11/2023 11:13 AM CHEMICAL ENGINEERING PROFESSOR 02/11/2023 11:13 AM CHEMICAL ENGINEERING PROFESSOR Myra Zeng MD CHEMISTRY [facility] [address] [place] [address], [place] [phone] from Last 3 Months Care Teams Community Aide Relationship Specialty Start Date End Date Kierra Garcia PA [address] [place] [address] PCP - General Physician [employer] 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
[2023-04-11 14:37] VITALS: PULSE 88; O2SAT 97
[2023-04-11 14:41] VITALS: BP 128/88; PULSE 84; TEMP 36.8
[2023-04-11 15:08] LABS: Amnisure Rom* Negative
--- NOTE | 2023-04-11 16:28 | PC.OBNST ---
NST Note NST Note Start: 04/11/23 14:39 Freq: ONCE Status: Discharge Protocol: Document 04/11/23 16:26 UATSDIN (Rec: 04/11/23 16:26 UAT[facility]IN [id number]) NST Note 1 Para (# of births) 0 EDC 05/11/23 Gestational Age In Weeks & Days 35 Weeks & 5 Days Patient Presented with Complaint(s) of Contractions/cramping,Leaking fluid Reactive Yes Appropriate for Gestational Age Yes DELFINO Madrigal Date 04/11/23 Reactive Yes Appropriate for Gestational Age Yes DELFINO Watkins Date 04/11/23 OB NST charge Yes Complete NST Note via Write Note Yes The provider's electronic signature indicates the NST is reactive/appropriate for gestational age. *Note to provider: If an addendum is required, open the patient's chart and click on the note under the Nurse/Allied Health tab.
== END 2023-04-11 14:40 | disposition home or self-care (01) ==
LOC: OB OUT 14:28 → OB 14:31
PROVIDERS: PCP Family Medicine; Visit Provider Student in an Organized Health Care Education/Training Program
DX: O47.03 False labor before 37 completed weeks of gestation, third trimester (principal); Z3A.35 35 weeks gestation of pregnancy
CPT/HCPCS: 59025; 84112; G0463

== ENCOUNTER 2023-04-22 15:20 | Outpatient (CLI) | payer BC, SELFPAY ==
--- OUTSIDE RECORDS SUMMARY | 2023-04-22 15:25 | XMS_ITS | Clinical Summary ---
Author Name Unknown Organization [facility] Address [place], [place] [address] Care Team Providers Care Manganese Breaker Name Role Phone Kierra Garcia Primary Care Provider AzucenaMyra goodwin MD Unavailable [phone] Allergies No known active allergies Medications Medication [...] disord er), recurrent, severe, with psychosis 03/04/2023 [facility] Supervision of high-risk 3 Overview: [facility] ULTRASOUND/TESTING PATIENT Support person name: Brazer Induction: No ULTRASOUND TYPE: L2 REASON FOR VISIT: [...] ECHO: REFERRING PHYSICIAN/PHONE/LAST UPDATE: Dr. Myra Zeng, [place] [phone] Primary MD approves scheduling of recommended ultrasounds/testing: [...] last menstrual period was 07/15/2022 (exact date). Hx herpes- needs acyclovir at 36 wks GBS- Vaginal/Rectal OB Strep B PCR Date Value Ref Range Status 04/15/2023 Negative Final Last Tdap- 02/11/23 Last Flu vaccine- 12/03/22 28 wk labs: GLUCOSE,GESTATIONAL Date Value Ref Range Status 02/11/2023 75 70 - 139 mg/dL Final HEMOGLOBIN Date Value Ref Range Status 02/11/2023 12.4 12.0 - 16.0 g/dL Final TREPONEMA PALLIDUM Date Value Ref Range Status 02/11/2023 Non-Reactive Non-Reactive Final OB labs: ABORH Date Value Ref Range Status 10/06/2022 B Rh Positive Final ANTIBODY SCREEN Date Value Ref Range Status 10/06/2022 Negative Negative Final TREPONEMA PALLIDUM Date Value Ref Range Status 02/11/2023 Non-Reactive Non-Reactive Final 10/06/2022 Negative Negative Final RUBELLA IGG ANTIBODY Date Value Ref Range Status 10/06/2022 3.46 >=1.00 Index Final INTERPRETATION Date Value Ref Range Status 10/06/2022 Positive Final Comment: Presence of detectable IgG antibodies. A positive result generally indicates exposure to the virus or previous vaccination, but is not an indication of active infection or stage of disease. Hep B Surf Ag Scr Date Value Ref Range Status 10/06/2022 Negative Negative Final HCV Ab Date Value Ref Range Status 10/06/2022 Non Reactive Non Reactive Final HCV Neg Interp Date Value Ref Range Status 10/06/2022 Comment Final Comment: Not infected with HCV unless early or acute infection is suspected (which may be delayed in an immunocompromised individual), or other evidence exists to indicate HCV infection. HEMOGLOBIN Date Value Ref Range Status 02/11/2023 12.4 12.0 - 16.0 g/dL Final PLATELET COUNT Date Value Ref Range Status 11/25/2022 261 140 - 440 thou/cu mm Final CHLAMYDIA PROBE Date Value Ref Range Status 10/06/2022 Negative Final N GONORRHOEAE PROBE Date Value Ref Range Status 10/06/2022 Negative Final HIV Scr 4th Gen Date Value Ref Range Status 10/06/2022 Non Reactive Non Reactive Final Comment: HIV Negative HIV-1/HIV-2 antibodies and HIV-1 p24 antigen were NOT detected. There is no laboratory evidence of HIV infection. No Known Allergies OB History Para Term [...] Encounters Date Type Department Care Team Description 04/22/2023 1:00 PM EMPLOYMENT AND CLAIMS AIDE Ancillary Procedure [facility] [address] [place] [address] Arrived 04/22/2023 10:30 AM EMPLOYMENT AND CLAIMS AIDE OB Encounter [facility] [address] [place] [address] Myra Zeng MD Care (37 weeks 2 days) 04/22/2023 Travel 04/15/2023 1:45 PM EMPLOYMENT AND CLAIMS AIDE Ancillary Procedure [facility] [address] [place] [address] [address] 04/15/2023 1:10 PM EMPLOYMENT AND CLAIMS AIDE OB Encounter [facility] [address] [place] [address] [address] Myra Zeng MD Care (36w 2d) 04/15/2023 Travel 04/11/2023 Orders Only [facility] Scanner 1 scan: (1-Ord) [place], LAB RESULT, 04/11/2023 04/06/2023 9:30 AM EMPLOYMENT AND CLAIMS AIDE OB Encounter [facility] [place] [address] [address] Myra Zeng MD Care (35w/Contractions over the weekend, went to center.) 04/06/2023 8:15 AM EMPLOYMENT AND CLAIMS AIDE Ancillary Procedure [facility] [address] 04/06/2023 Travel 04/03/2023 Orders Only [facility] Scanner 1 scan: (1-Ord) [facility], RESULTS, 04/03/2023 04/03/2023 Orders Only [facility] Scanner 1 scan: (1-Ord) [facility], RESULT, 04/03/2023 04/03/2023 Nurse Triage [facility] [address] Kierra Garcia PA Problem 04/01/2023 10:30 AM EMPLOYMENT AND CLAIMS AIDE OB Encounter [facility] [place] [address] [address] Myra Zeng MD Care (34w 2d/More leakage Unsure if it is urine or discharge) 04/01/2023 9:45 AM EMPLOYMENT AND CLAIMS AIDE Ancillary Procedure [facility] [place] [address] [address] 04/01/2023 Travel 03/27/2023 Orders Only [facility] [address] Myra Zeng MD 1 scan: (1-Ord) [facility], [place] OB, 03/26/2023 03/26/2023 Orders Only [facility] Scanner 1 scan: (1-Ord) [place] URINE, 03/26/2023 03/26/2023 Orders Only [facility] Scanner 1 scan: (1-Ord) [facility], RESULTS, 03/26/2023 03/20/2023 Telephone [facility] [address] [facility] [place] [address] Ayesha Mackay, DO Recheck 03/19/2023 Orders Only [facility] Scanner 1 scan: (1-Ord) [place] [facility], URINE, 03/19/2023 03/19/2023 Orders Only [facility] Scanner 1 scan: (1-Ord) [place], URINE CULTURE, 03/19/2023 03/19/2023 Orders Only [facility] Scanner 1 scan: (1-Ord) [place], URINALYSIS, 03/19/2023 03/19/2023 Nurse Triage [facility] [address] [place] [address] Myra Zeng MD 03/18/2023 10:55 AM EMPLOYMENT AND CLAIMS AIDE OB Encounter [facility] [place] [address] Myra Zeng MD Care (32wk 2d/Had some discharge chunk of her mucus plug/The cut down to 8 hours has really helped) 03/18/2023 Travel 03/04/2023 11:20 AM EMPLOYMENT AND CLAIMS AIDE OB Encounter [facility] [place] [place] [address] Myra Zeng MD Care (30w 2d/A lot of back pain, sent home from work yesterday. Lower back, left side worse than the right. Sharp pain and sometimes will go down her leg but mainly lower back) 03/04/2023 Travel 02/11/2023 10:55 AM EMPLOYMENT AND CLAIMS AIDE OB Encounter [facility] [place] [facility] [place] [address] Myra Zeng MD Care (27w 2d); Immunization/Inject ion 02/11/2023 10:40 AM EMPLOYMENT AND CLAIMS AIDE Orders Only [facility] [place] [place] [address] Lab, [place] [facility] 02/11/2023 9:45 AM EMPLOYMENT AND CLAIMS AIDE Ancillary Procedure [facility] [address] [place] [address] 02/11/2023 Travel from Last 3 Months Immunizations Name [...] Years Used Date Smoking Tobacco: Former Cigarettes 0.8 0 07/12/2022 - 05/31/2016 Passive Smoke Exposure: [...] Estimated Date of Delivery 10/06/2022 - Present (04/22/2023) 05/11/2023 (set by Miguelito Zeng MD on 10/24/2022 based on Ultrasound on 10/13/2022) Dating Summary Based On MIMI GA Diff Last Menstrual Period on 07/15/2022 (Exact Date) 04/21/2023 +2w6d Ultrasound on 10/13/2022 05/11/2023 Working GA:10w0d Vitals Pregravid Weight Height TWG (As of 04/22/2023) Pregrav id BMI 1.6 m (5' 3) Date GA Fund Present FHR Mvmt BP Weight Edema Alb Glu Ket Dil/ Eff/Sta 3 16w1d Inpatient data not displayed here. See encounter summary. 3 20w1d Inpatient data not displayed here. See encounter summary. Notes Progress Notes - OB Encounte r - 04/22/2023 - GA:37w2d 04/22/2023 - 37w2d - Myra Zeng MD SUBJECTIVE: Mariela Damon is a 22 y.o. female at 37+2 weeks. No concerns. See visit comments. OBJECTIVE: see OB vitals flow sheet ASSESSMENT : 37+2 weeks gestation Obesity with BMI >40, weekly BPPs (todays is later this afternoon) Anesthesia consult completed. PLAN: Labor signs and symptoms reviewed with patient including painful regular contractions or leaking fluid. RTC 1 weeks. Myra Zeng MD .................... 04/22/2023 10:36 AM OYMENT AND CLAIMS AIDE Progress Notes - OB Encounte r - 04/15/2023 - GA:36w2d 04/15/2023 - 36w2d - Myra Zeng MD SUBJECTIVE: Mariela Damon is a 22 y.o. female at 36+2 weeks. No concerns. See visit comments. OBJECTIVE: see OB vitals flow sheet BPP pending ASSESSMENT : 36+2 weeks gestation Obesity, BMI >40. Anesthesia consult completed. PLAN: Labor signs and symptoms reviewed with patient including painful regular contractions or leaking fluid. GBS completed today. RTC 1 weeks. Myra Zeng MD .................... 04/15/2023 1:05 PM OYMENT AND CLAIMS AIDE Progress Notes - OB Encounte r - 04/06/2023 - GA:35w0d 04/06/2023 - 35w0d - Myra Zegn MD SUBJECTIVE: Mariela Damon is a 22 [...] Myra Zeng MD .................... 04/06/2023 9:07 AM OYMENT AND CLAIMS AIDE Progress Notes - OB Encounte r - [...] Myra Zeng MD .................... 04/01/2023 10:29 AM OYMENT AND CLAIMS AIDE Progress Notes - OB Encounte r - [...] Myra Zeng MD .................... 03/18/2023 11:16 AM OYMENT AND CLAIMS AIDE Progress Notes - OB Encounte r - [...] Myra Zeng MD .................... 03/04/2023 11:41 AM OYMENT AND CLAIMS AIDE Progress Notes - OB Encounte r - 02/11/2023 - GA:27w2d 02/11/2023 - w - Myra Zeng MD SUBJECTIVE: Mariela Damon [...] Myra Zeng MD .................... 02/11/2023 10:55 AM OYMENT AND CLAIMS AIDE Progress Notes - OB Encounte r - 01/14/2023 - GA:23w2d 01/14/2023 - w2d - Myra Zeng MD SUBJECTIVE: [...] Myra Zeng MD .................... 01/14/2023 12:47 PM OYMENT AND CLAIMS AIDE Progress Notes - OB Encounte r - 01/07/2023 - GA:22w2d 01/07/2023 - w2d - Ayesha Mackay DO S: patient is [...] regular BM's. 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 Works as [employer] and could have pulled something as does [...] needed Ayesha Mackay D.O. 01/07/2023 4:54 PM. OYMENT AND CLAIMS AIDE Progress Notes - Hospital En counter - 12/23/2022 - GA:20w1d 12/23/2022 - 20w1d - Jeff Kim MBBS MPP Ultrasound Visit Your patient had an ultrasound with [facility] on 12/23/2022. The report is ready and can be found in the Results review section of [facility]. Recommendations regarding further care are listed [...] were identified. The echocardiogram was read by [facility] as normal. Normal Deepest Vertical Pocket [...] needed. Medical Decision Making: Consult Low Level [address] Limited number/complexity of problems including two or more self-limited problems, and BMI>40. Limited amount of data including review of prior ultrasound and review of prior external notes. Low risk of morbidity/mortality to the fetus from additional test or tx which (genetic amniocentesis was considered and declined). Services Provided: Procedures Code DETAIL ANATOMY & MPP ECHO 22926.0 Progress Notes - OB Encounte r - 12/17/2022 - GA:19w2d 12/17/2022 - w2d - Myra Zeng MD SUBJECTIVE: Mariela Callahan [...] r - 11/19/2022 - GA:15w2d 11/19/2022 - w2d - Myra Zeng MD SUBJECTIVE: Mariela Callahan [...] r - 10/24/2022 - GA:11w4d 10/24/2022 - - Myra Zeng MD FIRST OB VISIT [...] Previous Delivery Type: NA Occupation of patient: [employer] Name of Partner or Father of baby: [employer]. MENSTRUAL HISTORY: Patient's last menstrual period was [...] of estimated date of delivery: No Thalassemia (Bulgarian, Cameroonian, Mediterranean, or background): MCV less than 80: No Neural tube defect (Meningomyelocele, Spina bifida, or Anencephaly): No Congenital heart defect: No Down syndrome: No Brad-Sachs (Ashkenazi Temple, Cajun, Serbian Thayer): No Dahiana disease (Ashkenazi Temple): No Familial dysautonomia (Ashkenazi Temple): No Sickle cell disease or trait (): No Hemophilia or other blood disorders: No Muscular dystrophy: No Cystic fibrosis: No [place]'s chorea: No Intellectual disability and/or autism: No [...] LC HCV ANTIBODY RFX TO QUANT PCR CEO AND FOUNDER PROBE - GC CHLAMYDIA DNA PCR [[id number]] URINALYSIS W REFLEX MICROSCOPIC IF POSITIVE [96287.2] US 1ST TRIMESTER (< 14 weeks) [51194.0] EDUCATION/PATIENT INSTRUCTIONS - Advised patient to start/continue vitamin. - Discussed risk of using alcohol, tobacco, other drugs in . - Discussed healthy lifestyle in . - Provided copy of [facility] book and book inserts, discussed [id number] medications, and follow up. - Encouraged patient to call clinic at [phone] with any vaginal bleeding, fluid leaking from [...] Sign Reading Time Taken Comments Blood Pressure 131/88 04/22/2023 10:32 AM EMPLOYMENT AND CLAIMS AIDE Pulse 83 04/22/2023 10:32 AM EMPLOYMENT AND CLAIMS AIDE Temperature 36.7 ??C (98 ??F) 11/25/2022 11: 51 AM CDT Respiratory Rate 18 11/25/2022 11:5 1 AM CDT Oxygen Saturation 98% 04/22/2023 10: 32 AM EMPLOYMENT AND CLAIMS AIDE Inhaled Oxygen Concentration - - Weight 125.6 kg (276 lb 12.8 oz) 2023 10:32 AM EMPLOYMENT AND CLAIMS AIDE Height 160 cm (5' 3) 11/25/2022 11:51 AM CDT Body Mass Index 49.03 11/25/2022 11:51 AM CDT Plan of Treatment Upcoming Encounters Date Type Department Care Team (Late st Contact Info) Description 04/29/2023 10:30 AM EMPLOYMENT AND CLAIMS AIDE OB Encounter [facility] [address] [place] [address] Myra Zeng MD [address] [facility] [place] [address] 04/29/2023 1:00 PM EMPLOYMENT AND CLAIMS AIDE Ancillary Procedure [facility] [address] [place] [address] 05/06/2023 10:30 AM EMPLOYMENT AND CLAIMS AIDE OB Encounter [facility] [address] [place] [address] Myra Zeng MD [address] [place] [address] 05/06/2023 1:00 PM EMPLOYMENT AND CLAIMS AIDE Ancillary Procedure [facility] [address] [place] [address] Health Maintenance Due Date Last Done Comments [...] Associated Diagnosis Comments US OB BIOPHYSICAL PROFILE AND FOLLOW UP SINGLE Routine 04/22/2023 1:25 PM EMPLOYMENT AND CLAIMS AIDE Obesity affecting in third trimester US OB BIOPHYSICAL PROFILE SINGLE WO NST Routine 04/15/2023 2:05 PM EMPLOYMENT AND CLAIMS AIDE Obesity affecting in third trimester, unspecified obesity type VAGINAL/RECTAL OB STREP PCR Routine 04/15/2023 1:30 PM EMPLOYMENT AND CLAIMS AIDE Encounter for supervision of normal first in third trimester SCAN-LABORATORY REPORT 04/11/2023 12:00 AM EMPLOYMENT AND CLAIMS AIDE US OB BIOPHYSICAL PROFILE SINGLE WO NST Routine 04/06/2023 8:25 AM EMPLOYMENT AND CLAIMS AIDE Obesity affecting in third trimester, unspecified obesity type SCAN-LABORATORY REPORT 04/03/2023 12:00 AM EMPLOYMENT AND CLAIMS AIDE SCAN-LABORATORY REPORT 04/03/2023 12:00 AM EMPLOYMENT AND CLAIMS AIDE US OB BIOPHYSICAL PROFILE AND FOLLOW UP SINGLE Routine 04/01/2023 10:27 AM EMPLOYMENT AND CLAIMS AIDE Obesity affecting in third trimester, unspecified obesity type SCAN-LABORATORY REPORT 03/26/2023 12:00 AM EMPLOYMENT AND CLAIMS AIDE SCAN-LABORATORY REPORT 03/26/2023 12:00 AM EMPLOYMENT AND CLAIMS AIDE US OB BIOPHYSICAL PROFILE SINGLE WO NST Routine 03/26/2023 12:00 AM EMPLOYMENT AND CLAIMS AIDE Obesity affecting in third trimester, unspecified obesity type SCAN-PATHOLOGY REPORT 03/19/2023 12:00 AM EMPLOYMENT AND CLAIMS AIDE SCAN-PATHOLOGY REPORT 03/19/2023 12:00 AM EMPLOYMENT AND CLAIMS AIDE SCAN-LABORATORY REPORT 03/19/2023 12:00 AM EMPLOYMENT AND CLAIMS AIDE US OB FOLLOW UP ANY TRI SINGLE TA Routine 02/11/2023 11:37 AM EMPLOYMENT AND CLAIMS AIDE Encounter for supervision of normal first in second trimester GLUCOSE,GESTATIONAL Routine 02/11/2023 1 1:13 AM EMPLOYMENT AND CLAIMS AIDE Encounter for supervision of normal first in second trimester TREPONEMA PALLIDUM Routine 02/11/2023 11 :13 AM EMPLOYMENT AND CLAIMS AIDE Encounter for supervision of normal first in second trimester HEMOGLOBIN Routine 02/11/2023 11:13 AM EMPLOYMENT AND CLAIMS AIDE Encounter for supervision of normal first in second trimester from Last 3 Months Results * US OB BIOPHYSICAL PROFILE AND FOLLOW UP SINGLE (04/22/2023 1:25 PM EMPLOYMENT AND CLAIMS AIDE) Only the most recent of2 resultswithin the time period is included. Anatomical Region Laterality Modality Ultrasound Narrative 04/22/2023 2:16 PM EMPLOYMENT AND CLAIMS AIDE Indication: Obesity affecting in third trimester. Findings: MIMI by LMP 04/21/2023. Estimated gestational age by first ultrasound 37 week 2 day with an MIMI of 05/11/2023. measurements: BPD: 8.4 cm. ??33 weeks 6 day. ??This is the less than 2nd percentile Head circumference: 30.8 cm. ??34 weeks 3 day. ??This is less than the 2nd percentile Abdominal circumference: 33.2 cm. ??37 week 1 day. Femur length: 6.8 cm. ??35 week 1 day. Sonographic estimated stational age 35 week 2 day with an MIMI of 05/26/2023. heart rate: 134 bpm. Amniotic fluid: Single deepest pocket 8.1 cm. Estimate weight 2805 g with a 24 percentile. Placenta: Posterior. Presentation: Vertex. Umbilical artery SD ratio 2.5. Biophysical profile: breathin/2 Gross body movements: 2/2 tone: 2/2 Amniotic fluid: 2/2 Biophysical profile: 10/07 Myra Zeng MD US * US OB BIOPHYSICAL PROFILE SINGLE WO NST (04/15/2023 2:05 PM EMPLOYMENT AND CLAIMS AIDE) Only the most recent of3 resultswithin the time period is included. Anatomical Region Laterality Modality Ultrasound Narrative 04/15/2023 2:22 PM EMPLOYMENT AND CLAIMS AIDE Indication: Obesity. Comparison: 04/06/2023. Technique: Routine grayscale ultrasound of the fetus performed. ??Nonstress testing. Findings: heart rate 133 bpm. ??Normal amniotic fluid with single deepest pocket 7.5 cm. ??Vertex position. ??Normal breathing activity, gross body movements and tone. Impression: Biophysical profile 10/07. Myra Zeng MD US * VAGINAL/RECTAL OB STREP PCR (04/15/2023 1:30 PM EMPLOYMENT AND CLAIMS AIDE) Vaginal/Rectal OB Strep B PCR Negative 04/17/2023 9:01 AM EMPLOYMENT AND CLAIMS AIDE [facility] TRAL LABORATORY Other (Vaginal/Rectal) Non-Blood / Unknown 04/15/2023 1:30 PM EMPLOYMENT AND CLAIMS AIDE 04/15/2023 2:02 PM EMPLOYMENT AND CLAIMS AIDE Myra Zeng MD MICROBIOLOGY [place] [facility] [address] [place] [address], [place] * SCAN-LABORATORY REPORT (04/11/2023 12:00 AM EMPLOYMENT AND CLAIMS AIDE) Only the most recent of6 resultswithin the time period is included. Scanner OTHER * SCAN-PATHOLOGY REPORT (03/19/2023 12:00 AM EMPLOYMENT AND CLAIMS AIDE) Only the most recent of2 resultswithin the time period is included. Scanner OTHER * US OB FOLLOW UP ANY TRI SINGLE TA (02/11/2023 11:37 AM EMPLOYMENT AND CLAIMS AIDE) Anatomical Region Laterality Modality , 2or 3 TRIMESTER Ultrasound 02/11/2023 4:13 PM EMPLOYMENT AND CLAIMS AIDE Impressions 02/11/2023 4:13 PM EMPLOYMENT AND CLAIMS AIDE Sonographic gestational age 26 weeks 4 days and sonographic due date 05/16/2023. Sonographic age 5 days behind the clinical age. Estimated weight 22nd percentile. Abdominal circumference 35th percentile. BPD and HC 4th percentile. Dictated by Kp Wang MD @ Feb 11 2023 ??4:13PM (Electronically Signed) ?? Narrative 02/11/2023 4:13 PM EMPLOYMENT AND CLAIMS AIDE For Patients: ??As a result of the [...] dated 12/23/2022 the estimated weight was at [id number]%. BPD 4th percentile. HC 4th percentile. AC [...] 2023 4:13PM (Electronically Signed) Myra Zeng MD * TREPONEMA PALLIDUM (02/11/2023 11:13 AM EMPLOYMENT AND CLAIMS AIDE) TREPONEMA PALLIDUM Non-Reacti ve Non-Reacti ve 02/11/2023 5:43 PM EMPLOYMENT AND CLAIMS AIDE [facility] TRA LABORATORY Blood BLOOD SPECIMEN / Unknown Butterfly / Unknown 02/11/2023 11:13 AM EMPLOYMENT AND CLAIMS AIDE 02/11/2023 11:13 AM EMPLOYMENT AND CLAIMS AIDE Myra Zeng MD SEND OUTS Performing Organization Address City/[facility]/ZIP Co de Phone Number [facility] [address] [place] [address], [place] * HEMOGLOBIN (02/11/2023 11:13 AM EMPLOYMENT AND CLAIMS AIDE) HEMOGLOBIN 12.4 12.0 - 16.0 g/dL 02/11/2023 11:16 AM EMPLOYMENT AND CLAIMS AIDE [facility] MCV 97 80 - 100 fL 02/11/2023 11:16 AM EMPLOYMENT AND CLAIMS AIDE [facility] Blood BLOOD SPECIMEN / Unknown Butterfly / Unknown 02/11/2023 11:13 AM EMPLOYMENT AND CLAIMS AIDE 02/11/2023 11:13 AM EMPLOYMENT AND CLAIMS AIDE Myra Zeng MD HEMATOLOGY Performing Organization Address [facility] Co de Phone Number [facility] [address] [place] [address], [place] [phone] * GLUCOSE,GESTATIONAL (02/11/2023 11:13 AM EMPLOYMENT AND CLAIMS AIDE) GLUCOSE,GESTAT IONAL 75 70 - 139 mg/dL 02/11/2023 11:34 AM EMPLOYMENT AND CLAIMS AIDE [facility] Blood BLOOD SPECIMEN / Unknown Butterfly / Unknown 02/11/2023 11:13 AM EMPLOYMENT AND CLAIMS AIDE 02/11/2023 11:13 AM EMPLOYMENT AND CLAIMS AIDE Myra Zeng MD CHEMISTRY Performing Organization Address City/[facility]/ZIP Co de Phone Number [facility] [address] [place] [address], [place] [phone] from Last 3 Months Care Teams Manganese Breaker Relationship Specialty Start Date End Date Kierra Garcia PA [address] [place] [address] PCP - General Physician Hair Weaver 03/13/21 Myra Zeng MD [address] [place] [address] Family Practice 11/19/22
[2023-04-22 15:32] VITALS: BP 122/74; PULSE 77; PULSE 83; TEMP 36.6; O2SAT 97
[2023-04-22 16:01] LABS: Amnisure Rom* Negative
--- NOTE | 2023-04-22 16:40 | PC.OBNST ---
NST Note NST Note Start: 04/22/23 14:55 Freq: ONCE Status: Active Protocol: Document 04/22/23 16:39 HAROLDO (Rec: 04/22/23 16:40 HAROLDO [id number]) NST Note 1 Para (# of births) 0 EDC 05/11/23 Gestational Age In Weeks & Days 37 Weeks & 2 Days Patient Presented with Complaint(s) of Leaking fluid Reactive Yes Appropriate for Gestational Age Yes RN Marbin Crocker RN Date 04/22/23 Reactive Yes Appropriate for Gestational Age Yes DELFINO Garcia RN Date 04/22/23 OB NST charge Yes Complete NST Note via Write Note Yes The provider's electronic signature indicates the NST is reactive/appropriate for gestational age. *Note to provider: If an addendum is required, open the patient's chart and click on the note under the Nurse/Allied Health tab.
--- NOTE | 2023-04-22 16:40 | PC.OBNST ---
NST Note NST Note Start: 04/22/23 14:55 Freq: ONCE Status: Active Protocol: Document 04/22/23 16:39 HAROLDO (Rec: 04/22/23 16:40 HAROLDO [id number]) NST Note 1 Para (# of births) 0 EDC 05/11/23 Gestational Age In Weeks & Days 37 Weeks & 2 Days Patient Presented with Complaint(s) of Leaking fluid Reactive Yes Appropriate for Gestational Age Yes RN Marbin Crocker RN Date 04/22/23 Reactive Yes Appropriate for Gestational Age Yes DELFINO Garcia RN Date 04/22/23 OB NST charge Yes Complete NST Note via Write Note Yes The provider's electronic signature indicates the NST is reactive/appropriate for gestational age. *Note to provider: If an addendum is required, open the patient's chart and click on the note under the Nurse/Allied Health tab.
--- NOTE | 2023-05-03 15:47 | PC.OBNST ---
NST Note NST Note Start: 04/22/23 14:55 Freq: ONCE Status: Discharge Protocol: Document 04/22/23 16:39 HAROLDO (Rec: 04/22/23 16:40 HAROLDO [id number]) NST Note 1 Para (# of births) 0 EDC 05/11/23 Gestational Age In Weeks & Days 37 Weeks & 2 Days Patient Presented with Complaint(s) of Leaking fluid Reactive Yes Appropriate for Gestational Age Yes RN Marbin Crocker RN Date 04/22/23 Reactive Yes Appropriate for Gestational Age Yes DELFINO Garcia RN Date 04/22/23 OB NST charge Yes Complete NST Note via Write Note Yes The provider's electronic signature indicates the NST is reactive/appropriate for gestational age. *Note to provider: If an addendum is required, open the patient's chart and click on the note under the Nurse/Allied Health tab.
--- NOTE | 2023-05-04 12:55 | PC.OBNST ---
NST Note NST Note Start: 04/22/23 14:55 Freq: ONCE Status: Discharge Protocol: Document 04/22/23 16:39 HAROLDO (Rec: 04/22/23 16:40 HAROLDO [id number]) NST Note 1 Para (# of births) 0 EDC 05/11/23 Gestational Age In Weeks & Days 37 Weeks & 2 Days Patient Presented with Complaint(s) of Leaking fluid Reactive Yes Appropriate for Gestational Age Yes RN Marbin Crocker RN Date 04/22/23 Reactive Yes Appropriate for Gestational Age Yes DELFINO Garcia RN Date 04/22/23 OB NST charge Yes Complete NST Note via Write Note Yes The provider's electronic signature indicates the NST is reactive/appropriate for gestational age. *Note to provider: If an addendum is required, open the patient's chart and click on the note under the Nurse/Allied Health tab.
== END 2023-04-22 16:40 | disposition home or self-care (01) ==
LOC: OB OUT 15:20 → OB 15:20
PROVIDERS: PCP Family Medicine; Visit Provider Family Medicine
DX: O47.1 False labor at or after 37 completed weeks of gestation (principal); Z3A.37 37 weeks gestation of pregnancy
CPT/HCPCS: 59025; 84112; G0463

== ENCOUNTER 2023-05-01 23:16 | Outpatient (CLI) | payer BC, SELFPAY ==
[2023-05-01 23:32] VITALS: BP 125/76; PULSE 73; PULSE 74; RESP 16; TEMP 36.7; O2SAT 98
[2023-05-01 23:37] VITALS: PULSE 79; O2SAT 98
[2023-05-01 23:42] VITALS: PULSE 71; O2SAT 97
[2023-05-01 23:47] VITALS: PULSE 80; O2SAT 97
[2023-05-01 23:52] VITALS: PULSE 85; O2SAT 97
[2023-05-01 23:57] VITALS: PULSE 76; O2SAT 97
[2023-05-02 00:02] VITALS: PULSE 71; O2SAT 98
[2023-05-02 00:07] VITALS: PULSE 83; O2SAT 98
[2023-05-02 00:12] VITALS: PULSE 79; O2SAT 99
[2023-05-02 00:17] VITALS: PULSE 75; O2SAT 98
[2023-05-02 00:22] VITALS: PULSE 85; O2SAT 99
[2023-05-02 00:37] LABS: Hematocrit 38.5 % (33.0-51.0); Mean Corpuscular HGB Conc 34 gm/dL (32-36); Mean Corpuscular Hemoglobin 32 pg (26-34); Mean Corpuscular Volume 96 fL (80-100); Platelet Count* 250 K/uL (140-440); Red Blood Count 4.03 m/uL (4.00-5.20); White Blood Count* 9.56 K/uL (4.50-11.00)
[2023-05-02 00:38] LABS: Slide Review Reflex No
[2023-05-02 00:50] LABS: Appearance Urine Clear (Clear); Bilirubin Urine Negative (Negative); Blood Urine Negative (Negative); Color Urine Yellow (Yellow); Glucose Urine Negative (Negative); Ketones Urine Negative (Negative); Leukocyte Esterase Urine Negative (Negative); Nitrite Urine Negative (Negative); Protein Urine Negative (Negative); Urobilinogen Urine 0.2 (0.2-1.0)
[2023-05-02 00:53] LABS: Aspartate Amino Transferase* 21 U/L (12-35); Creatinine* 0.7 mg/dL (0.5-1.5); Estimated Glomerular Filt Rate 124 ml/min
[2023-05-02 00:54] LABS: Alanine Aminotransferase* 21 U/L (4-35); Blood Urea Nitrogen* 23 mg/dL (5-24)
[2023-05-02 01:07] LABS: Amnisure Rom* Negative
[2023-05-02 01:16] LABS: Total Protein Urine 11 mg/dL
[2023-05-02 01:17] LABS: Creatinine Urine 51.3 mg/dL
[2023-05-02 01:32] VITALS: BP 125/80; PULSE 73
--- NOTE | 2023-05-02 01:43 | W.PM.NSTNOTE ---
NST Note NST Note NST Note: pt in triage for back pain with irregular contractions. Also mentions vision blurry at times throughout day. not currently. no headaches. BP wnl. preeclampsia labs negative. UrineP/C 0.2. Contractions palpate mild per RN, irregular, not picking up on monitor. Cervix unchanged. Given Morphine/Vistaril. FHT while here: FHT baseline 110-120's, moderate variability. +accels. No decels
[2023-05-02] MEDS: MORPHINE 10 MG/ML inj IM (01:51)
[2023-05-02] MEDS: hydrOXYzine pamoate 25 MG CAPSULE 100 MG PO (01:52)
--- NOTE | 2023-05-02 02:56 | PC.OBNST ---
NST Note NST Note Start: 05/01/23 23:32 Freq: ONCE Status: Active Protocol: Document 05/02/23 02:47 SUE (Rec: 05/02/23 02:54 SUE [id number]) NST Note 1 Para (# of births) 0 EDC 05/11/23 Gestational Age In Weeks & Days 38 Weeks & 5 Days Patient Presented with Complaint(s) of Contractions/cramping,Leaking fluid,Other Other Complaints Vision Floaters Reactive Yes DELFINO Randall, RN Date 05/02/23 Reactive Yes DELFINO Orozco RN Date 05/02/23 OB NST charge Yes Complete NST Note via Write Note Yes The provider's electronic signature indicates the NST is reactive/appropriate for gestational age. *Note to provider: If an addendum is required, open the patient's chart and click on the note under the Nurse/Allied Health tab.
--- NOTE | 2023-05-04 12:57 | PC.OBNST ---
NST Note NST Note Start: 05/01/23 23:32 Freq: ONCE Status: Discharge Protocol: Document 05/02/23 02:47 SUE (Rec: 05/02/23 02:54 SUE [id number]) NST Note 1 Para (# of births) 0 EDC 05/11/23 Gestational Age In Weeks & Days 38 Weeks & 5 Days Patient Presented with Complaint(s) of Contractions/cramping,Leaking fluid,Other Other Complaints Vision Floaters Reactive Yes RN Nirmal Randall, RN Date 05/02/23 Reactive Yes DELFINO Orozco RN Date 05/02/23 OB NST charge Yes Complete NST Note via Write Note Yes The provider's electronic signature indicates the NST is reactive/appropriate for gestational age. *Note to provider: If an addendum is required, open the patient's chart and click on the note under the Nurse/Allied Health tab.
== END 2023-05-02 02:01 | disposition home or self-care (01) ==
LOC: OB OUT 23:16 → OB 23:16
PROVIDERS: PCP Family Medicine; Visit Provider Family Medicine
DX: O47.1 False labor at or after 37 completed weeks of gestation (principal); Z3A.38 38 weeks gestation of pregnancy
CPT/HCPCS: 36415; 59025; 81003; 82565; 82570; 84112; 84156; 84450; 84460; 84520; 85027; G0463; A9270; J2270

== ENCOUNTER 2023-05-12 17:15 | Inpatient (IN) | payer BC, SELFPAY ==
[2023-05-12] VITALS (10 sets, daily range): BP systolic 115–146; BP diastolic 78–101; PULSE 88–97; RESP 16; TEMP 36.6–36.8; O2SAT 98; BMI 49.8
--- NOTE | 2023-05-12 18:45 | PM.OBHPLI ---
OB - H&P: HPI Labor/Induction History of Present Illness Date Seen: 05/12/23 Chief Complaint: The patient is a 22 year old 1 para 0 at 40+1 weeks gestation by US dating, who presents for IOL for obesity and post dates. Chief complaint: Cook Cath IOL Narrative: Mariela Damon is a 22 year old at 40+1 weeks by 10 week US here for IOL for obesity and post dates. Her has been otherwise uncomplicated, weekly BPPs have been reassuring. She is GBS negative, rubella immune rH+. She has a history of herpes, but ran into difficulty filling acyclovir, so has not been on this prophylactically. She reports no vulvar/vaginal lesions. She reports no regular contractions, no LOF. The cook catheter was placed without difficulty, however as the intrauterine balloon was filled, she had SROM of a large amount of clear fluid. History of Present Dating criteria: based on 1st trimester US only care: good care Ultrasounds: normal 1st trimester US and normal mid trimester US Abnormal ultrasound findings: HC 3%, BPD 2% otherwise growth within normal limits, perinatology consulted and not concerned. Medical complications: none Labs Blood type: B (+) positive Rubella: immune RPR/VDLR: nonreactive GBS status: negative HBsAG: negative Meds Home Medications and Allergies Home Medications Medication Instructions Recorded Confirmed Type sertraline 50 mg tablet 50 mg PO DAILY 01/09/23 05/12/23 History aspirin 81 mg tablet,delayed 81 mg PO DAILY 03/26/23 05/12/23 History release vits,calcium 91-iron 28 1 pkg PO DAILY PRN 03/26/23 05/12/23 History mg-folic 975 mcg-dha 200 mg oral pack ( + DHA) Allergies Allergy/AdvReac Type Severity Reaction Status Date / Time No Known Drug Allergies Allergy Verified 01/09/23 19:00 OB - H&P: Exam Physical Exam: Vital signs: Temp Pulse BP Pulse Ox 97.8 F 97 115/82 98 05/12/23 17:33 05/12/23 17:33 05/12/23 17:33 05/12/23 17:32 Constitutional: Constitutional: no acute distress Routine HEENT Exam: Head: Present atraumatic Eye: Present EOMI and PERRL ENT: Present mucous membranes moist Routine Neck Exam: Neck: Present full ROM Routine Respiratory Exam: Respiratory: Present CTA bilaterally Routine Cardiovascular Exam: Cardiovascular: RRR Routine Exam: Comments: no herpes lesions Detailed Labor and Delivery Exam: Patient Gravid: Yes Dilation (cm): 1 Effacement (%): 50 Cervix position: anterior Consistency: soft Cervical ripeness score: 6 Fetus (Single): Station: -3 Amniotic Membrane Status: AROM Amniotic Membrane Fluid Description: Clear Heart Rate Baseline: 140 Monitor Decelerations: None Prison Variability: Moderate (6-25) Routine Skin Exam: Present intact, dry and warm Routine Neurological Exam: Present alert, oriented X3 and CN II-XII intact Routine Psychiatric Exam: Present normal affect OB - Problem Based A/P Additional Plan (1) Term : Status: Acute (2) Increased BMI (body mass index): Status: Acute Plan plan was to place cook catheter overnight, however with SROM during placement, will change to oral cytotec. Delivery/Labor/Induction Plan Plan: induction Induction method: per misoprostol protocol
[2023-05-12] MEDS: miSOPROStoL 25 MCG/0.25 TABLET PO ×2 (18:51→21:08)
[2023-05-12] MEDS: hydrOXYzine pamoate 25 MG CAPSULE 100 MG PO (21:48)
[2023-05-12] MEDS: MORPHINE 10 MG/ML inj IM (21:49)
[2023-05-12] MEDS: LACTATED RINGERS 1000 ML 1,000 ML 125 ML IV (23:30)
[2023-05-12 23:40] LABS: Basophils Absolute Auto 0.02 K/uL (0.00-0.30); Basophils Percent Auto 0.2 % (0.0-3.0); Eosinophils Absolute Auto 0.08 K/uL (0.00-0.50); Eosinophils Percent Auto 0.8 % (0.0-7.0); Hematocrit 39.7 % (33.0-51.0); Hemoglobin* 13.3 gm/dL (12.0-16.0); Immature Granulocytes Abs Auto 0.04 K/uL (0.00-0.30); Immature Granulocytes Pct Auto 0.4 %; Lymphocytes Absolute Auto 2.78 K/uL (0.90-2.90); Lymphocytes Percent Auto 27.3 % (20-44); Mean Corpuscular HGB Conc 34 gm/dL (32-36); Mean Corpuscular Hemoglobin 32 pg (26-34); Mean Corpuscular Volume 96 fL (80-100); Monocytes Percent Auto 7.9 % (0.0-11.0); Neutrophils Absolute Auto 6.46 K/uL (1.7-7.0); Neutrophils Percent Auto 63.4 % (42.0-72.0); Platelet Count* 235 K/uL (140-440); RDW Coefficient of Variation % 14.6 % (11.5-15.5); Red Blood Count 4.15 m/uL (4.00-5.20); Slide Review Reflex No; White Blood Count* 10.18 K/uL (4.50-11.00)
[2023-05-13] VITALS (63 sets, daily range): BP systolic 110–159; BP diastolic 60–98; PULSE 74–108; RESP 16–18; TEMP 36.7–37.1; O2SAT 92–99
[2023-05-13] MEDS: LIDOCAINE 2% (PF) 5 ML VIAL EPIDURAL (00:46)
[2023-05-13] MEDS: ROPIVACAINE 0.2% 100 ml 100 ML 12 MG EPIDURAL (00:46)
--- NOTE | 2023-05-13 00:49 | PM.ANBPRC ---
[facility] Social History What is your current living situation?: I presently have a place to live Problems where you live: no known problems In the past 12 months, utilities in danger of being shut off: no In past 12 months, lack of transportation kept you from medical appts, meetings, work, or getting things needed for daily living: no In the past 12 mos, have been you worried that your food would run out before you had money to buy more?: never true In the past 12 mos, the food you bought just didn't last and you didn't have money to buy more?: never true Smoking Status: Former smoker How often do you have a drink containing alcohol: never How often do you have six or more drinks on one occasion: Never AUDIT-C Alcohol total score: 0 Non-prescribed substance use: denies use How often does anyone, including family, friends and others, physically hurt you: never How often does anyone, including family, friends and others, insult or talk down to you: never How often does anyone, including family, friends and others, threaten you with harm: never How often does anyone, including family, friends and others, scream or curse at you: never Meds Home Medications and Allergies Home Medications Medication Instructions Recorded Confirmed Type sertraline 50 mg tablet 50 mg PO DAILY 01/09/23 05/12/23 History aspirin 81 mg tablet,delayed 81 mg PO DAILY 03/26/23 05/12/23 History release vits,calcium 91-iron 28 1 pkg PO DAILY PRN 03/26/23 05/12/23 History mg-folic 975 mcg-dha 200 mg oral pack ( + DHA) Allergies Allergy/AdvReac Type Severity Reaction Status Date / Time No Known Drug Allergies Allergy Verified 01/09/23 19:00 Results Labs Labs: Laboratory Results - last 24 hr 05/12/23 23:15 WBC 10.18 RBC 4.15 Hgb 13.3 Hct 39.7 MCV 96 MCH 32 MCHC 34 RDW Coeff of Loi 14.6 Plt Count 235 Neut % (Auto) 63.4 Lymph % (Auto) 27.3 Imperial % (Auto) 7.9 Eos % (Auto) 0.8 Baso % (Auto) 0.2 Neut # (Auto) 6.46 Lymph # (Auto) 2.78 Imperial # (Auto) 0.80 Eos # (Auto) 0.08 Baso # (Auto) 0.02 Abs Immat Gran (auto) 0.04 Imm/Tot Granulo (auto) 0.4 Blood Type B Positive Antibody Screen NEGATIVE Vital Signs Vital Signs: Last Vital Signs Temp 98.2 F 05/12/23 22:10 Pulse 90 05/13/23 00:46 Resp 16 05/12/23 22:10 BP 128/82 05/13/23 00:46 Pulse Ox 97 05/13/23 00:47 Weight: 127.686 kg Height: 160.02 cm Anesthesia Procedures Epidural Insertion Patient Location: OB Start Time: :25 Stop Time: : Start Date: 05/13/23 Stop Date: 05/13/23 Reason for Block: primary anesthetic Patient Position: sitting Performed By: Juve Carlson Preanesthetic Checklist: IV checked, risks and benefits discussed, surgical consent, monitors and equipment checked, pre-op evaluation, timeout performed and anesthesia consent Prep: chlorhexidine gluconate Monitoring: blood pressure monitoring, fibrous wallboard inspector, continuous pulse oximetry and heart rate Approach: midline Vertebral Space: lumbar (1-5) Needle Type: Tuohy needle Injection Technique: continuous catheter (catheter) Needle gauge: 17 Needle Length (cm): 10 cm Needle Insertion Depth (cm): 7 Catheter Gauge: 19 Catheter Type: multi-orifice Catheter at skin depth (cm): 12 Test Dose Result: negative and lidocaine 1.5% with epinephrine 1 to 200,000
[2023-05-13] MEDS: LACTATED RINGERS 1000 ML 1,000 ML 999 ML IV (03:48)
[2023-05-13] MEDS: OXYTOCIN 30 unit/500 ML in NS 30 UNIT/500 ML BAG 300 UNIT IVPB (05:05)
--- NOTE | 2023-05-13 05:25 | W.PM.VAGDEL1 ---
Procedure Delivery date: 05/13/23 Procedure Done: Global Intrapartal Events: None Delivery monitor: external uterine and internal FHT Route of delivery: Laceration description: Perineal - 2nd Degree Delivery repair: Vicryl (3-0) Estimated blood loss (mL): 350 Anesthesia type: Epidural Disposition: floor Narrative: The patient is a 22 year-old admitted on 05/12/2023 at 40 Weeks, 1 Days gestation for IOL for obesity and post dates.? Cervical exam on admission was 1.5 cm/60 % effaced/-3 station with membranes intact in vertex presentation.? Contractions were intermittent.? heart rate demonstrated baseline 140 bpm with moderate variability, + accelerations, - decelerations; a category 1 tracing.? ROM while filling the intrauterine cook catheter balloon occurred at 1826 with clear fluid. ? Labor Analgesia:? epidural ? Pitocin:? post-delivery ? Labor onset:? 0030 ? Complete:? 0441 ? Pushing:? 0447 ? heart tones during second stage were category 2. ? At 0503 a viable female delivered in vertex OA presentation over intact perineum via spontaneous vaginal delivery.? was placed on maternal abdomen.? Cord was clamped and cut after a 30-60 second delay.? Nose and mouth were bulb suctioned.? Infant weight pending.? 7 at 1 minute and 9 at 5 minutes.? Shoulder dystocia: no.? Nuchal cord: yes, reduced at perineum. ? Placenta delivered spontaneously and complete at 0507 with a 3 vessel cord. ? Mother and were stable after delivery. ? Lacerations:? 2nd degree, repaired with 3-0 vicryl suture. ? Blood loss: 350 mL. Blood loss measurement type: QBL ? Sponge and needles counts are correct. Gender: Female presentation: vertex Placental Delivery Description: Spontaneous Cord Description: 3 Vessels and Nuchal Cord
[2023-05-13 07:32] LABS: Hematocrit 36.7 % (33.0-51.0); Hemoglobin* 12.4 gm/dL (12.0-16.0); Mean Corpuscular HGB Conc 34 gm/dL (32-36); Mean Corpuscular Hemoglobin 33 pg (26-34); Mean Corpuscular Volume 97 fL (80-100); Platelet Count* 214 K/uL (140-440); White Blood Count* 14.75 K/uL (4.50-11.00)
[2023-05-13 07:35] LABS: Slide Review Reflex No
[2023-05-13] MEDS: IBUPROFEN 600 MG TABLET PO ×2 (07:39→17:01)
[2023-05-13 07:48] LABS: Creatinine* 0.6 mg/dL (0.5-1.5); Estimated Glomerular Filt Rate 128 ml/min
[2023-05-13 07:49] LABS: Alanine Aminotransferase* 28 U/L (4-35); Aspartate Amino Transferase* 28 U/L (12-35)
--- NOTE | 2023-05-13 08:36 | PM.ANPOST ---
Post Anesthesia Note Post Anesthesia Note Patient seen: Inpatient Respiratory Status: adequate Cardiovascular Status: adequate Mental Status: baseline Pain: adequate Temp: baseline Anesthetic awareness: N/A Complications: none Follow care: none
[2023-05-13] MEDS: ACETAMINOPHEN 500 MG TABLET 1000 MG PO (11:03)
[2023-05-13] MEDS: SERTRALINE 50 MG TABLET PO (11:03)
[2023-05-13] MEDS: DOCUSATE SODIUM 100 MG CAPSULE PO (11:04)
[2023-05-13] MEDS: LABETALOL HCL 100 MG TABLET 200 MG PO ×2 (12:39→22:18)
[2023-05-14] VITALS (8 sets, daily range): BP systolic 120–138; BP diastolic 66–94; PULSE 90–111; RESP 17–18; TEMP 36.3–36.7; O2SAT 96–97
[2023-05-14] MEDS: IBUPROFEN 600 MG TABLET PO ×3 (00:25→18:30)
[2023-05-14 06:27] LABS: Hemoglobin* 10.7 gm/dL (12.0-16.0)
--- NOTE | 2023-05-14 07:40 | PM.OBPNVD1 ---
OB - PN:Subj Subjective Time Seen by Provider: 07:15 Date Seen: 05/14/23 Interval history: pt seen in routine rounds this morning. pt without concerns. She did have elevated bp's in 130-140/80-90 range so was started on labetalol yesterday. BP's since 120's/80's with most recent 123/66. pt reports feeling well, no concerns and would like to go home later today if possible. has started pumping and getting colostrum and feeding via bottle to baby and says working really well. Pt is ambulating, voiding, and tolerating orals. Patient comments OB post-: no complaints status: OB - PN: Obj Exam Physical Exam: Vital signs: Temp Pulse Resp BP Pulse Ox O2 Del Method 98.0 F 111 H 18 128/66 96 Room Air 05/14/23 04:22 05/14/23 04:22 05/14/23 04:22 05/14/23 04:22 05/14/23 04:22 05/14/23 04:22 Constitutional: Constitutional: no acute distress Routine Abdominal Exam: Fundus: Present firm (below umbilicus) OB - PN: Obj Data Labs Labs: Laboratory Results - last 24 hr 05/13/23 05/14/23 07:26 06:15 Hgb 10.7 L Creatinine 0.6 Estimated Creat Clear 119.60 Estimated GFR 128 AST 28 ALT 28 OB - PN: A/P Delivery Assessment and Plan (1) Term : Status: Resolved (2) Increased BMI (body mass index): Status: Acute (3) hypertension: Problem details: Labetalol started 05/13/23 Status: Acute Assessment and Plan: Optimal bp goal < 130/80. Most recent bp looks good on labetalol. Discussed with pt, need verify bp's remain controlled throughout day. if so, can d/c home later today. if Bp's elevated, will need adjust meds and monitor and stay. pt and reported understanding. Mom does have home bp cuff.
[2023-05-14] MEDS: LABETALOL HCL 100 MG TABLET 200 MG PO ×2 (08:31→13:46)
[2023-05-14] MEDS: DOCUSATE SODIUM 100 MG CAPSULE PO (08:31)
[2023-05-14] MEDS: SERTRALINE 50 MG TABLET PO (08:32)
[2023-05-14] MEDS: LABETALOL HCL 100 MG TABLET 300 MG PO (20:59)
[2023-05-14] MEDS: ACETAMINOPHEN 500 MG TABLET 1000 MG PO (21:04)
[2023-05-15 00:34] VITALS: BP 115/82; PULSE 96; RESP 16
[2023-05-15] MEDS: IBUPROFEN 600 MG TABLET PO ×2 (03:40→09:30)
[2023-05-15 03:48] VITALS: BP 137/95; PULSE 84; RESP 16; TEMP 36.4; O2SAT 98
[2023-05-15 07:34] VITALS: BP 127/88; PULSE 86; RESP 16; TEMP 36.6; O2SAT 97
[2023-05-15] MEDS: SERTRALINE 50 MG TABLET PO (09:09)
[2023-05-15] MEDS: DOCUSATE SODIUM 100 MG CAPSULE PO (09:09)
[2023-05-15] MEDS: LABETALOL HCL 100 MG TABLET 300 MG PO (09:09)
--- NOTE | 2023-05-15 10:21 | PM.OBDSVD1 ---
DS: Providers Provider Date Seen: 05/15/23 Date of admission: 05/12/23 17:15 Primary care physician: Betty Zeng MD Admitting Clinician: Betty Zeng MD Attending Physician on discharge: Betty Zeng MD DS: Diagnosis Discharge Diagnosis (1) Vaginal delivery: Status: Acute (2) hypertension: Status: Acute Problem details: Labetalol started 05/13/23 Exam Const: Vital Signs, click to edit/add: Vital Signs - 24 hr 05/14/23 11:39 05/14/23 13:10 05/14/23 15:15 Temperature 97.8 F 97.9 F Pulse Rate [Pulse Oximeter] 91 90 Respiratory Rate 18 18 Blood Pressure [Ri ght Arm] 124/87 137/94 H 120/87 Pulse Oximetry Oxygen Delivery Me thod 05/14/23 17:12 05/14/23 21:11 05/15/23 00:34 Temperature 97.7 F Pulse Rate [Pulse Oximeter] 96 96 Respiratory Rate 18 16 Blood Pressure [Ri ght Arm] 135/92 H 128/88 115/82 Pulse Oximetry 97 Oxygen Delivery Me thod Room Air Room Air 05/15/23 03:48 05/15/23 07:34 Temperature 97.6 F 97.9 F Pulse Rate [Pulse Oximeter] 84 86 Respiratory Rate 16 16 Blood Pressure [Ri ght Arm] 137/95 H 127/88 Pulse Oximetry 98 9 L Oxygen Delivery Me thod Room Air Room Air Common normals: no apparent distress General appearance: cooperative and comfortable Orientation/consciousness: Yes awake Resp: Common normals: normal respiratory effort and clear to auscultation bilaterally Effort & inspection: able to speak in complete sentences Auscultation: clear to auscultation bilaterally Cardio: Common normals: regular rate and regular rhythm Rate: regular rate Rhythm: regular rhythm GI: Common normals: Normal to inspection, nondistended, normoactive bowel sounds present Other: uterus firm at umbilicus Neuro: Sensorium/orientation: awake OB - DS: Summary Hospital Course Hospital Course: The patient is a 22 year old G 1 P 1 at 40+3 weeks gestation that was admitted to the Center on 05/12/23 for elective IOL. She had an uncomplicated vaginal delivery. She delivered a viable female . She is breast feeding. the patient has done well. She has developed HTN, well controlled on labetalol. Negative preeclampsia labs and no signs/symptoms of severe preeclampsia. Peripartum Data delivery method: Vaginal complications: none Gender: Female Infant Discharge Plan: Home Status at Discharge Functional status at discharge: independent ambulation Overall status at discharge: patient is progressing back to baseline Time Spent with Patient Time attestation: Total time spent providing and/or coordinating discharge services: Time spent: Less than 30 minutes Discharge Plan Discharge Disposition: Home, Self-Care Date of Admission: 05/12/23 17:15 Attending Provider on Discharge: Betty Zeng Primary Care Provider: Betty Zeng Condition: Improved Anticipated Discharge Date/Time: 05/15/23 10:24 Discharge Medications: New labetalol 100 mg Tablet 300 mg PO TID 30 Days Qty: 270 0RF Continued + DHA 28 mg iron- 975 mcg-200 mg combo pack 1 pkg PO DAILY PRN sertraline 50 mg tablet 50 mg PO DAILY Discontinued aspirin 81 mg tablet,delayed release (DR/EC) 81 mg PO DAILY Discharge Orders: Discharge Order (Routine); Ordered 05/15/23 Ordered By: Betty Zeng Patient Education: OB Vaginal/Breast Feeding Activity Level: Activity as Tolerated Activity Detail: nothing per vagina x 6 weeks. No intercourse or tampons Discharge Diet: Regular Follow Up Appointments: Betty Zeng MD [Primary Care Provider] - Forms: [employer] Info Instructions
== END 2023-05-15 11:40 | disposition home or self-care (01) | DRG 560 ==
PROVIDERS: Admitting Provider Family Medicine; PCP Family Medicine; Visit Provider Family Medicine
DX: O48.0 Post-term pregnancy (principal); O70.1 Second degree perineal laceration during delivery; O16.5 Unspecified maternal hypertension, complicating the puerperium; O99.214 Obesity complicating childbirth; E66.9 Obesity, unspecified; O98.32 Other infections with a predominantly sexual mode of transmission complicating childbirth; A60.00 Herpesviral infection of urogenital system, unspecified; O99.344 Other mental disorders complicating childbirth; F32.A Depression, unspecified; Z3A.40 40 weeks gestation of pregnancy; Z37.0 Single live birth
CPT/HCPCS: 01967; 36415; 82565; 84450; 84460; 85018; 85025; 85027; 86592; 86850; 86900; 86901; A9270; J2270; J2371; J2795; J7120

== ENCOUNTER 2023-05-15 20:54 | Emergency (ER) | payer BC, SELFPAY ==
[2023-05-15 21:08] VITALS: BP 138/91; PULSE 106; RESP 18; TEMP 36.9; O2SAT 98; BMI 47.8
[2023-05-15 21:50] LABS: Basophils Absolute Auto 0.02 K/uL (0.00-0.30); Basophils Percent Auto 0.2 % (0.0-3.0); Eosinophils Absolute Auto 0.35 K/uL (0.00-0.50); Eosinophils Percent Auto 3.4 % (0.0-7.0); Hematocrit 34.8 % (33.0-51.0); Hemoglobin* 11.4 gm/dL (12.0-16.0); Immature Granulocytes Abs Auto 0.02 K/uL (0.00-0.30); Immature Granulocytes Pct Auto 0.2 %; Lymphocytes Absolute Auto 2.33 K/uL (0.90-2.90); Lymphocytes Percent Auto 22.3 % (20-44); Mean Corpuscular HGB Conc 33 gm/dL (32-36); Mean Corpuscular Hemoglobin 32 pg (26-34); Mean Corpuscular Volume 99 fL (80-100); Monocytes Percent Auto 5.8 % (0.0-11.0); Neutrophils Absolute Auto 7.11 K/uL (1.7-7.0); Neutrophils Percent Auto 68.1 % (42.0-72.0); Platelet Count* 268 K/uL (140-440); RDW Coefficient of Variation % 15.2 % (11.5-15.5); Red Blood Count 3.52 m/uL (4.00-5.20); White Blood Count* 10.43 K/uL (4.50-11.00)
[2023-05-15 21:52] LABS: Slide Review Reflex No
[2023-05-15 22:03] LABS: Albumin* 3.3 g/dL (3.3-5.0); Chloride* 110 mmol/L (96-114)
[2023-05-15 22:04] LABS: Potassium* 3.8 mmol/L (3.6-5.1); Sodium* 139 mmol/L (135-149)
[2023-05-15 22:06] LABS: Alkaline Phosphatase* 117 U/L (40-150); Anion Gap 6 mEq/L (7-15); Aspartate Amino Transferase* 29 U/L (12-35); Bilirubin Direct* 0.1 mg/dL (0.0-0.5); Bilirubin Total* 0.1 mg/dL (0.1-1.5); Carbon Dioxide* 23 mmol/L (20-32); Total Protein* 6.4 g/dL (6.0-8.3)
[2023-05-15 22:07] LABS: Alanine Aminotransferase* 31 U/L (4-35); Blood Urea Nitrogen* 21 mg/dL (5-24); Calcium* 8.9 mg/dL (8.4-10.6); Glucose* 91 mg/dL (60-115)
[2023-05-15 22:08] VITALS: PULSE 97; O2SAT 97
[2023-05-15 22:12] VITALS: BP 118/73; PULSE 93; O2SAT 98
--- NOTE | 2023-05-15 22:16 | ED.GENADULT ---
HPI - General Adult General Date Seen: 05/15/23 Chief complaint: Hypertension Stated complaint: high blood pressure Time Seen by Provider: 05/15/23 21:26 Source: patient, RN notes reviewed and old records reviewed Mode of arrival: ambulatory Limitations: no limitations History of Present Illness HPI narrative: Patient is a 22-year-old , status post vaginal delivery 2 days ago. Discharged from the hospital earlier today. She did have high blood pressures noted and was sent home on labetalol. She said she was told to keep an eye on her blood pressure. She checked tonight before she took her evening antihypertensive, and it was 158/106. She says she waited 10 minutes checked it again and it was still 150/108 in so she elected to come in. She does not have any headache, no abdominal pain. She has had some swelling in her legs, right greater than left and her ankle feels kind of tingly. She does not have pain in her legs, has not had shortness of breath. No fevers. Really no other complaints. She says was uneventful. There is significant family history of hypertension. She does not smoke or drink. Here tonight with Mom. Related Data Home Medications Medication Instructions Recorded Confirmed sertraline 50 mg tablet 50 mg PO DAILY 01/09/23 05/15/23 vits,calcium 91-iron 28 1 pkg PO DAILY PRN 03/26/23 05/15/23 mg-folic 975 mcg-dha 200 mg oral pack ( + DHA) Previous Rx's Medication Instructions Recorded labetalol 100 mg tablet 300 mg (3 x 100 mg) PO TID 30 days 05/15/23 #270 tabs Allergies Allergy/AdvReac Type Severity Reaction Status Date / Time No Known Drug Allergies Allergy Verified 05/15/23 21:16 Review of Systems Status of ROS: Reports: 10 or more systems reviewed and unremarkable except as noted in History and below PFSH PFS Medical History Term ?Z34.90 - Encounter for supervision of normal , unspecified, unspecified trimester (ICD-10) Social History What is your current living situation?: I presently have a place to live Problems where you live: no known problems In the past 12 months, utilities in danger of being shut off: no In past 12 months, lack of transportation kept you from medical appts, meetings, work, or getting things needed for daily living: no In the past 12 mos, have been you worried that your food would run out before you had money to buy more?: never true In the past 12 mos, the food you bought just didn't last and you didn't have money to buy more?: never true Smoking Status: Former smoker How often do you have a drink containing alcohol: never How often do you have six or more drinks on one occasion: Never AUDIT-C Alcohol total score: 0 Non-prescribed substance use: denies use How often does anyone, including family, friends and others, physically hurt you: never How often does anyone, including family, friends and others, insult or talk down to you: never How often does anyone, including family, friends and others, threaten you with harm: never How often does anyone, including family, friends and others, scream or curse at you: never Exam Narrative: Exam Narrative: Vital signs as noted above. In general, an alert, well-appearing patient. Head: Normocephalic, atraumatic. Eyes: Pupils are equal reactive. Extraocular movements are full. Conjunctivae are normal. ENT: Mucous membranes are moist. Throat is normal. Neck: Supple without lymphadenopathy. Heart: Regular rate and rhythm. No murmur or rub. Lungs: Clear bilaterally. No increased work of breathing, crackles or wheezes. Abdomen: Soft and nontender. Somewhat limited by body habitus. Extremities: Well perfused. She has some puffiness in both ankles, right slightly more than left. No calf tenderness or erythema, edema. Radial pulse intact. Neurologic: Patient is alert and oriented to person and place. Speech is fluent. Face is symmetric. Moves all extremities equally. Affect: Normal. Skin: Warm and dry. Well perfused. No rashes. Const: Vital Signs, click to edit/add: Vital Signs - 24 hr 05/15/23 21:08 Temperature 98.4 F Pulse Rate [Pulse Oximeter] 106 H Respiratory Rate 18 Blood Pressure [Ri ght Upper Arm] 138/91 H Pulse Oximetry 98 Oxygen Delivery Me thod Room Air Documenting provider has reviewed patient's vital signs: yes Course Course ED Course: Patient's blood pressure here when I went in to see her was 135/85. I did check some labs, LFTs are normal, platelets are 268,000. Hemoglobin is 11.4. Metabolic panel is normal. Urinalysis pending at this time. Overall, and given the absence of symptoms and mildly elevated blood pressures at this time my suspicion for preeclampsia is quite low. Urine is negative for protein or other acute findings. She is taking labetalol at home, would advise that she continue that, follow-up with primary care as planned. Return for new symptoms such as headache, abdominal pain, shortness of breath. Vital Signs Vital signs: Initial Vital Signs Temperature 98.4 F 05/15/23 21:08 Temperature Source Temporal Artery Scan 05/15/23 21:08 Pulse Rate 106 H 05/15/23 21:08 Respiratory Rate 18 05/15/23 21:08 Blood Pressure 138/91 H 05/15/23 21:08 Blood Pressure Mean 106 H 05/15/23 21:08 Blood Pressure Position Sitting 05/15/23 21:08 Pulse Oximetry 98 05/15/23 21:08 Oxygen Delivery Method Room Air 05/15/23 21:08 Vital Signs Temperature 98.4 F 05/15/23 21:08 Pulse Rate 106 H 05/15/23 21:08 Respiratory Rate 18 05/15/23 21:08 Blood Pressure 138/91 H 05/15/23 21:08 Pulse Oximetry 98 05/15/23 21:08 Oxygen Delivery Method Room Air 05/15/23 21:08 Temperature 98.4 F 05/15/23 21:08 Pulse Rate 106 H 05/15/23 21:08 Respiratory Rate 18 05/15/23 21:08 Blood Pressure 138/91 H 05/15/23 21:08 Pulse Oximetry 98 05/15/23 21:08 Oxygen Delivery Method Room Air 05/15/23 21:08 Medical Decision Making Lab Data Labs: Lab Results 05/15/23 05/15/23 Range/Units 21:44 22:16 WBC 10.43 (4.50-11.00) K/uL RBC 3.52 L (4.00-5.20) m/uL Hgb 11.4 L (12.0-16.0) gm/dL Hct 34.8 (33.0-51.0) % MCV 99 (80-100) fL MCH 32 (26-34) pg MCHC 33 (32-36) gm/dL RDW Coeff of Loi 15.2 (11.5-15.5) % Plt Count 268 (140-440) K/uL Neut % (Auto) 68.1 (42.0-72.0) % Lymph % (Auto) 22.3 (20-44) % [place] % (Auto) 5.8 (0.0-11.0) % Eos % (Auto) 3.4 (0.0-7.0) % Baso % (Auto) 0.2 (0.0-3.0) % Neut # (Auto) 7.11 H (1.7-7.0) K/uL Lymph # (Auto) 2.33 (0.90-2.90) K/uL [place] # (Auto) 0.60 (0.00-0.90) K/UL Eos # (Auto) 0.35 (0.00-0.50) K/uL Baso # (Auto) 0.02 (0.00-0.30) K/uL Abs Immat Gran (auto) 0.02 (0.00-0.30) K/uL Imm/Tot Granulo (auto) 0.2 % Sodium 139 (135-149) mmol/L Potassium 3.8 (3.6-5.1) mmol/L Chloride 110 (96-114) mmol/L Carbon Dioxide 23 (20-32) mmol/L Anion Gap 6 L (7-15) mEq/L BUN 21 (5-24) mg/dL Creatinine 0.7 (0.5-1.5) mg/dL Estimated Creat Clear 102.51 Estimated GFR 124 ml/min Glucose 91 (60-115) mg/dL Calcium 8.9 (8.4-10.6) mg/dL Total Bilirubin 0.1 (0.1-1.5) mg/dL Direct Bilirubin 0.1 (0.0-0.5) mg/dL AST 29 (12-35) U/L ALT 31 (4-35) U/L Alkaline Phosphatase 117 (40-150) U/L Total Protein 6.4 (6.0-8.3) g/dL Albumin 3.3 (3.3-5.0) g/dL Urine Color Yellow (Yellow) Urine Appearance Clear (Clear) Urine pH 7.0 (5.0-8.5) Ur Specific [place] 1.025 (1.000-1.030) Urine Protein Negative (Negative) Urine Glucose (UA) Negative (Negative) Urine Ketones Negative (Negative) Urine Blood 2+ A (Negative) Urine Nitrite Negative (Negative) Urine Bilirubin Negative (Negative) Urine Urobilinogen 0.2 (0.2-1.0) Ur Leukocyte Esterase Trace A (Negative) Urine RBC 0-2 (0-2) Urine WBC 5-10 A (0-5) Ur Squamous Epith Cells Few (None-Few) Amorphous Sediment Few A (None) Urine Bacteria Moderate A (None) Discharge Plan Discharge Clinical Impression: hypertension Patient Disposition: Home, Self-Care Condition: Stable Instructions: Hypertension During (ED) Additional Instructions: Continue your blood pressure medication. Your labs here today including platelets, liver function tests are normal. I do not have concerns at this time for preeclampsia, but if you have severe symptoms such as significant headache, right upper abdominal pain, shortness of breath, return for re-evaluation. Otherwise, follow up as planned with your clinic. Prescriptions: No Action + DHA 28 mg iron- 975 mcg-200 mg combo pack 1 pkg PO DAILY PRN sertraline 50 mg tablet 50 mg PO DAILY labetalol 100 mg Tablet 300 mg PO TID 30 Days Qty: 270 0RF Follow Up/Referrals: Betty Zeng MD [Primary Care Provider] - Stand Alone Forms: [employer] Info Instructions
[2023-05-15 22:22] LABS: Creatinine* 0.7 mg/dL (0.5-1.5); Est. Creatinine Clearance* 102.51; Estimated Glomerular Filt Rate 124 ml/min
[2023-05-15 22:35] LABS: Appearance Urine Clear (Clear); Bilirubin Urine Negative (Negative); Blood Urine 2+ (Negative); Color Urine Yellow (Yellow); Glucose Urine Negative (Negative); Ketones Urine Negative (Negative); Leukocyte Esterase Urine Trace (Negative); Nitrite Urine Negative (Negative); Protein Urine Negative (Negative); Specific Gravity Urine 1.025 (1.000-1.030); Urobilinogen Urine 0.2 (0.2-1.0)
[2023-05-15 22:40] VITALS: BP 143/92
[2023-05-15 22:41] VITALS: BP 147/89
[2023-05-15 22:52] VITALS: BP 111/61
[2023-05-15 22:56] LABS: RBC Urine 0-2 (0-2); Squamous Epithelial Cell Urine Few (None-Few)
[2023-05-15 22:57] LABS: Amorphous Sediment Urine Few; Bacteria Urine Moderate
== END 2023-05-15 23:02 | disposition home or self-care (01) ==
PROVIDERS: Emergency Provider Emergency Medicine; PCP Family Medicine
DX: O16.5 Unspecified maternal hypertension, complicating the puerperium (principal)
CPT/HCPCS: 36415; 80048; 80076; 81001; 85025; 87086; 99283; 99284

== ENCOUNTER 2023-10-02 08:33 | Emergency (ER) | payer BC, SELFPAY ==
[2023-10-02 08:35] VITALS: BP 117/80; PULSE 97; RESP 18; TEMP 36; O2SAT 97; BMI 46.4
--- NOTE | 2023-10-02 08:47 | ED_ITS ---
HPI - Abdominal Pain General Time Seen by Provider: 08:48 Date Seen: 10/02/23 Chief Complaint: Abdominal Pain Stated Complaint: Suspected ovarian cyst rupture Time Seen by Provider: 10/02/23 08:47 Source: patient and RN notes reviewed Mode of arrival: wheelchair Limitations: no limitations History of Present Illness HPI narrative: This 22-year-old female presents with sudden onset of left lower abdominal pain that started at work this morning. Prior to this she had been feeling fine, no fevers chills, no nausea or vomiting, no diarrhea or constipation, no urinary symptoms. She is at the end of her menstrual cycle. She is about 4 months , started having menstrual cycles about 2 months after delivery of her baby. Baby is bottle-fed. Pain is severe, making her sweat, has caused her to feel nausea. She does not feel like she can urinate since the pain started. She does have a history of ovarian cyst rupture before. She states that feel similar to this. MD elicited complaint: abdominal pain Related Data Patient : No Home Medications ?Medication ?Instructions ?Recorded ?Confirmed sertraline 50 mg tablet 50 mg PO DAILY 01/09/23 10/02/23 vits,calcium 91-iron 28 1 pkg PO DAILY PRN 03/26/23 10/02/23 mg-folic 975 mcg-dha 200 mg oral pack ( + DHA) Previous Rx's ?Medication ?Instructions ?Recorded ketorolac 10 mg tablet 10 mg PO Q6H PRN pain #20 tabs 10/02/23 Allergies Allergy/AdvReac Type Severity Reaction Status Date / Time No Known Drug Allergies Allergy Verified 05/15/23 21:16 Review of Systems Status of ROS Reports: 6 or more systems reviewed and unremarkable except as noted in History and below [facility] Medical History Term ?Z34.90 - Encounter for supervision of normal , unspecified, u nspecified trimester (ICD-10) Social History What is your current living situation?: I presently have a place to live Problems where you live: no known problems In the past 12 months, utilities in danger of being shut off: no In past 12 months, lack of transportation kept you from medical appts, meetings, work, or getting things needed for daily living: no In the past 12 mos, have been you worried that your food would run out before you had money to buy more?: never true In the past 12 mos, the food you bought just didn't last and you didn't have money to buy more?: never true Smoking Status: Former smoker How often do you have a drink containing alcohol: never How often do you have six or more drinks on one occasion: Never AUDIT-C Alcohol total score: 0 Non-prescribed substance use: denies use How often does anyone, including family, friends and others, physically hurt you : never How often does anyone, including family, friends and others, insult or talk down to you: never How often does anyone, including family, friends and others, threaten you with harm: never How often does anyone, including family, friends and others, scream or curse at you: never Exam Const: Vital Signs, click to edit/add: Vital Signs - 24 hr 10/02/23 08:35 Temperature 96.8 F L Pulse Rate [Right Pulse Oximeter] 97 Respiratory Rate 18 Blood Pressure [Ri ght Upper Arm] 117/80 Pulse Oximetry 97 Oxygen Delivery Me thod Room Air Mariela is alert, interactive, face is sweaty but sclera clear, conjugate gaze. She is able speak in complete sentences. Lungs are clear come good air entry, no wheezing crackles, no tachypnea. CV regular rate and rhythm, no murmur, normal S1-S2, no S3-S4. Abdomen is soft, nondistended. She has definite left lower quadrant tenderness but no rebound or guarding. Do not feel any organomegaly or masses. Skin visualized without rash, no jaundice. Pelvic exam deferred at this time. Documenting provider has reviewed patient's vital signs: yes Course Course ED Course: Will proceed with some IV Toradol and Zofran for symptom control. She will let me know if if this does not sufficiently control her pain and symptoms. Will proceed with pelvic ultrasound and baseline labs. Collect urinalysis when able. Other possible etiologies could be urinary such as infectious or stone pathology. Doubtful in 22-year-old female with sudden onset of left lower quadrant abdominal pain that this would be anything like diverticulitis. If ultrasound imaging is not showing us any causative etiology, can consider CT imaging. Reevaluation(s) Time of Reevaluation #1: 10:18 Reevaluation #1: Provided patient a copy in reviewed her ultrasound with her. The left ovary looks polycystic in his larger, documents good blood flow. She has a negative test a normal white blood count. She does have menstrual flow which is minimal right now, is just wearing a pad. There could be contamination for menstrual flow in her urinalysis. Did discuss doing a noncontrast CT abdomen pelvis just to ensure that there was no kidney stone. She does not have a history of this but certainly could be causative etiology of sudden onset of left-sided abdominal and flank pain. We are going to proceed with a noncontrast CT. She does feel better at this time with the Toradol and Zofran, does not require further pain management. I do think it would be important to know if there is any possibility of stone pathology issue may need ongoing treatment. She would like to proceed with CT imaging. Time of Reevaluation #2: 11:44 Reevaluation #2: Reviewed normal CT, no acute intra-abdominal findings. We reviewed that it is likely the left polycystic ovary that was causing her pain today. We will send in some Toradol for her. Vital Signs Vital signs: Initial Vital Signs Temperature 96.8 F L 10/02/23 08:35 Temperature Source Temporal Artery Scan 10/02/23 08:35 Pulse Rate 97 10/02/23 08:35 Pulse Rhythm Regular 10/02/23 08:35 Respiratory Rate 18 10/02/23 08:35 Blood Pressure 117/80 10/02/23 08:35 Blood Pressure Mean 92 10/02/23 08:35 Blood Pressure Position Sitting 10/02/23 08:35 Pulse Oximetry 97 10/02/23 08:35 Oxygen Delivery Method Room Air 10/02/23 08:35 Vital Signs Temperature 96.8 F L 10/02/23 08:35 Pulse Rate 97 10/02/23 08:35 Respiratory Rate 18 10/02/23 08:35 Blood Pressure 117/80 10/02/23 08:35 Pulse Oximetry 97 10/02/23 08:35 Oxygen Delivery Method Room Air 10/02/23 08:35 Temperature 96.8 F L 10/02/23 08:35 Pulse Rate 97 10/02/23 08:35 Respiratory Rate 18 10/02/23 08:35 Blood Pressure 117/80 10/02/23 08:35 Pulse Oximetry 97 10/02/23 08:35 Oxygen Delivery Method Room Air 10/02/23 08:35 Medications Administered Medications: Discontinued Medications Generic Name Dose Route Start Last Admin Trade Name Julia PRN Reason Stop Dose Admin Ketorolac Tromethamine 15 mg 10/02/23 08:51 10/02/23 09:08 Ketorolac 15 Mg/Ml Inj IVP 10/02/23 08:52 15 mg ONCE ONE Administration Ondansetron HCl 4 mg 10/02/23 08:51 10/02/23 09:10 Ondansetron 2 Mg/Ml Inj IVP 10/02/23 08:52 4 mg ONCE ONE Administration MDM - Abdominal Pain Lab Data Attestation: I reviewed the patient's lab results. Labs: Lab Results 10/02/23 10/02/23 Range/Units 09:10 09:43 WBC 9.35 (4.50-11.00) K/uL RBC 4.29 (4.00-5.20) m/uL Hgb 13.1 (12.0-16.0) gm/dL Hct 39.9 (33.0-51.0) % MCV 93 (80-100) fL MCH 31 (26-34) pg MCHC 33 (32-36) gm/dL RDW Coeff of Loi 12.6 (11.5-15.5) % Plt Count 314 (140-440) K/uL Neut % (Auto) 70.1 (42.0-72.0) % Lymph % (Auto) 20.5 (20-44) % [place] % (Auto) 8.3 (0.0-11.0) % Eos % (Auto) 0.7 (0.0-7.0) % Baso % (Auto) 0.3 (0.0-3.0) % Neut # (Auto) 6.54 (1.7-7.0) K/uL Lymph # (Auto) 1.92 (0.90-2.90) K/uL [place] # (Auto) 0.80 (0.00-0.90) K/UL Eos # (Auto) 0.07 (0.00-0.50) K/uL Baso # (Auto) 0.03 (0.00-0.30) K/uL Abs Immat Gran (auto) 0.01 (0.00-0.30) K/uL Imm/Tot Granulo (auto) 0.1 % Sodium 138 (135-149) mmol/L Potassium 3.9 (3.6-5.1) mmol/L Chloride 109 (96-114) mmol/L Carbon Dioxide 20 (20-32) mmol/L Anion Gap 9 (7-15) mEq/L BUN 23 (5-24) mg/dL Creatinine 0.7 (0.5-1.5) mg/dL Estimated Creat Clear 102.51 Estimated GFR 124 ml/min Glucose 112 (60-115) mg/dL Calcium 9.6 (8.4-10.6) mg/dL C-Reactive Protein 1.5 H (0.5-1.0) mg/dL HCG, Qual Negative (Negative) Urine Color Yellow (Yellow) Urine Appearance Clear (Clear) Urine pH 5.5 (5.0-8.5) Ur Specific [place] >= 1.030 (1.000-1.030) Urine Protein Negative (Negative) Urine Glucose (UA) Negative (Negative) Urine Ketones Negative (Negative) Urine Blood 3+ A (Negative) Urine Nitrite Negative (Negative) Urine Bilirubin Negative (Negative) Urine Urobilinogen 0.2 (0.2-1.0) Ur Leukocyte Esterase Trace A (Negative) Urine RBC 25-50 A (0-2) Urine WBC 5-10 A (0-5) Ur Squamous Epith Cells Moderate A (None-Few) Urine Bacteria Moderate A (None) Imaging Data US pelvis: Attestation: I have reviewed the pertinent imaging results. Radiologist's impression: Patient: MARIELA MEDINA Facility:?[facility] Patient ID:?[id number] Site Patient ID:?[id number]. Site :?[id number] Study:?US-Pelvis pelvic TA/TV w/doppler-10/02/2023 9:50:07 AM Ordering Physician:Morris Taylor Final Report: INDICATION: Sudden left lower quadrant abdominal pain. History of ovarian cysts. TECHNIQUE: Ultrasound pelvis transabdominal and transvaginal. Real-time sonographic images with spectral and color Doppler imaging of the ovaries were obtained. COMPARISON: None available. FINDINGS: Uterus: 6.7 x 4.0 x 5.6 cm. Normal echotexture of the myometrium. No masses. Endometrium: Endometrial thickness measures 3 mm. No sign of endometrial mass or fluid. Right ovary 1.9 x 3.5 x 1.6 cm (volume 5.4 mL). Left ovary 3.7 x 2.5 x 2.8 cm (13.6 mL). Multiple subcentimeter left ovarian follicles. No ovarian or adnexal masses. Normal arterial and venous blood flow is demonstrated in both ovaries. Cul-de-sac: No significant free fluid. IMPRESSION: : 1. Asymmetric ovarian sizes with left ovary mildly enlarged compared to the right. The left ovary has a polycystic appearance; however, demonstrates normal blood flow. No sonographic evidence of ovarian torsion. 2. Otherwise unremarkable pelvic ultrasound. Dictated by Usha Bloom MD @ 10/02/2023 10:14:36 AM (Electronic Signature) CT scan - abdomen: Attestation: I have reviewed the pertinent imaging results. Radiologist's impression: Patient: MARIELA MEDINA Facility:?[facility] Patient ID:?[id number] Site Patient ID:?[id number]. Site :?2000 Study:?CT-Abdomen/Pelvis WITHOUT-10/02/2023 10:44:17 AM Ordering Physician:?Shobha Taylor Final Report: INDICATION: LEFT SIDED ABD PAIN. SUDDEN ONSET. TECHNIQUE: CT abdomen and pelvis without contrast. COMPARISON: CT abdomen and pelvis dated 11/29/2020. FINDINGS: Lower chest: Unremarkable. Solid organ evaluation is limited without the use of intravenous contrast. Liver: Normal in size and attenuation. No suspicious masses. Gallbladder and bile ducts: No stones or inflammation. No biliary dilatation. Pancreas: Unremarkable. No mass or inflammation. Spleen: Normal in size. No masses. Adrenal glands: Normal in size. No nodules. Kidneys: Normal in size. No suspicious masses, stones, or hydronephrosis. GI tract: Unremarkable. Normal in caliber. No sign of mass or inflammation. Normal appendix. Vasculature: Abdominal aorta is normal in caliber. Lymph nodes: No lymphadenopathy. Peritoneum/Abdominal Wall: Unremarkable. No sign of mass or infiltration. No free air or significant free fluid. Pelvis: Unremarkable. No pelvic masses. Bones: Unremarkable for age. IMPRESSION: No evident acute abnormalities in the abdomen or pelvis. No radiopaque calculi in the urinary collecting system. Please note that all CT scans at this facility use dose modulation, iterative reconstruction, and/or weight-based dosing when appropriate to reduce radiation dose to as low as reasonably achievable. Dictated by Tito Herman MD @ 10/02/2023 11:43:02 AM (Electronic Signature) Discharge Plan Discharge Clinical Impression: Polycystic left ovary Patient Disposition: Home, Self-Care Condition: Stable Instructions: Ovarian Cyst (ED) Additional Instructions: Can use Toradol per prescription. Can supplement with Tylenol 1000 mg up to 3 times a day if needed for additional pain management. Once you are done with Toradol, can go to ibuprofen and Tylenol per bottle directions. If you have significant increase in pain, have fever with worsening abdominal pain, please seek re-evaluation. Activity Level: Activity as Tolerated Discharge Diet: Regular Prescriptions: New ketorolac 10 mg tablet 10 mg PO Q6H PRN (Reason: pain) Qty: 20 0RF Rx Instructions: maximum total duration of 5 days from all oral, intranasal, or parenteral formulations No Action + DHA 28 mg iron- 975 mcg-200 mg combo pack 1 pkg PO DAILY PRN sertraline 50 mg tablet 50 mg PO DAILY Follow Up/Referrals: Betty Zeng MD [Primary Care Provider] - Stand Alone Forms: [employer] Info Instructions
--- NOTE | 2023-10-02 08:50 | CRLHL7_ITS ---
For Patients: As a result of the Century Cures Act, medical imaging exams and procedure reports are released immediately into your electronic medical record. You may view this report before your referring provider. If you have questions, please contact your health care provider. INDICATION: Sudden left lower quadrant abdominal pain. History of ovarian cysts. TECHNIQUE: Ultrasound pelvis transabdominal and transvaginal. Real-time sonographic images with spectral and color Doppler imaging of the ovaries were obtained. COMPARISON: None available. FINDINGS: Uterus: 6.7 x 4.0 x 5.6 cm. Normal echotexture of the myometrium. No masses. Endometrium: Endometrial thickness measures 3 mm. No sign of endometrial mass or fluid. Right ovary 1.9 x 3.5 x 1.6 cm (volume 5.4 mL). Left ovary 3.7 x 2.5 x 2.8 cm (13.6 mL). Multiple subcentimeter left ovarian follicles. No ovarian or adnexal masses. Normal arterial and venous blood flow is demonstrated in both ovaries. Cul-de-sac: No significant free fluid. IMPRESSION: : 1. Asymmetric ovarian sizes with left ovary mildly enlarged compared to the right. The left ovary has a polycystic appearance; however, demonstrates normal blood flow. No sonographic evidence of ovarian torsion. 2. Otherwise unremarkable pelvic ultrasound. Dictated by Usha Bloom MD @ 10/02/2023 10:14:36 AM (Electronically Signed)
--- OUTSIDE RECORDS SUMMARY | 2023-10-02 09:07 | XMS_ITS | Clinical Summary ---
Author Organization [employer] [facility] Address [place], [place] [address] Care Team Providers Care Senior Technical Business Analyst Name Role Phone Kierra Gracia Primary Care Provider Betty Zeng MD Unavailable [phone] Allergies No known active allergies Medications Medication Sig Dispensed Refills Start Date End Date Status vit 28/iron fum/folic (multivitamin folic acid 1 mg) Take 1 Tablet by mouth once daily. 0 10/24/2022 Active sertraline (ZOLOFT) 100 mg tabletIndication s:RADHA (generalized anxiety disorder) Take 1.5 Tablets (150 mg) by mouth once daily in the morning. 135 Tablet 3 09/02/2023 Active etonogestreL-eth inyl estradioL (NUVARING) vaginal ringIndications: Dysmenorrhea Insert 1 ring vaginally and leave in place for 3 consecutive weeks, then remove for 1 week. Repeat with new ring. 3 Each 4 09/07/2023 Active etonogestreL-eth inyl estradioL (NUVARING) vaginal ringIndications: Dysmenorrhea Insert 1 ring vaginally and leave in place for 3 consecutive weeks, then remove for 1 week. Repeat with new ring. 3 Each 4 07/17/2023 Discontinue d(Reorder (E-cancel not sent)) Active Problems Problem Noted Date Diagnosed Date MDD (major depressive disord er), recurrent, severe, with psychosis 03/04/2023 [facility] Supervision of high-risk Overview: MPP ULTRASOUND/TESTING PATIENT Support person name: General Administrator: No ULTRASOUND TYPE: L2 REASON FOR VISIT: [...] EDC 05/11/23 ECHO: REFERRING PHYSICIAN/PHONE/LAST UPDATE: [facility] [phone] Primary MD approves scheduling of recommended ultrasounds/testing: [...] present) No problems associated with this episode. OSORIO MCCALL RN ....10/06/2022 11:36 AM RADHA (generalized anxiety disorder) 01/07/2016 Depression, recurrent 11/29/2015 Resolved Problems Problem Noted Date Diagnosed Date [...] Encounters Date Type Department Care Team Description 09/29/2023 Telephone [facility] [address] [place] [facility] [address] Kierra Garcia PA Prior Authorization (etonogestreL-ethinyl estradioL (NUVARING) vaginal ring) 09/24/2023 Orders Only [facility] [address] [facility] [address] Kierra Garcia PA <No scans attached> 09/02/2023 11:30 AM CDT Office Visit [facility] [address] [facility] [place] [address] Kierra Garcia PA Physical (22 years old); Contraception (Would like to restart nuvaring); Medication Management (Discuss possible increase of zoloft) 09/02/2023 Travel 07/08/2023 Telephone [facility] [address] [place] [address] Betty Zeng MD Prior Authorization (etonogestreL-ethinyl estradioL (NUVARING) vaginal ring (DENIED)) from Last 3 Months Immunizations Name Administration [...] Years Used Date Smoking Tobacco: Former Cigarettes 0 07/12/2022 - 05/31/2016 Passive Smoke Exposure: Past Smokeless Tobacco: Never Tobacco Cessation:Counseling Given: Not Answered Comments:Smokes cigarettes only when drinking, and only sometimes. Passive Exposure Comments:Fiance Alcohol Use Standard Drinks/Week Comments Not Currently 0 (1 standard drink = 0.6 oz pur e alcohol) occ. PHQ-2 Answer Date Recorded PHQ-2 TOTAL SCORE 1 06/29/2023 Social Connections Answer Date Recorded Frequency of Communication with Friends and Fami ly 0 05/06/2023 Financial Resource Strain Answer Date R ecorded Difficulty of Paying Living Expenses 3 05/06/2023 Difficulty of Paying Living Expenses Not on file 05/06/2023 Food Insecurity Answer Date Recorded Worried About Running Out of Food in the Last Ye ar 1 05/06/2023 Transportation Needs Answer Date Record ed Lack of Transportation (Medical) 1 05/06/2023 Housing Stability Answer Date Recorded Unable to Pay for Housing in the Last Year 1 05/06/2023 Sex and Gender Information Value Date Recorded Sex Assigned at Not on file Gender Identity Not on file Sexual Orientation Not on file Obstetrics History Para Term AB IAB SAB Ectopic Multiple Livin g Live Births 1 1 1 1 1 Date Outcome GA Total Labor Labor/2nd/3rd Weight Sex Type Anes PTL Adele A1 A5 Name Clin 2023 Term 40w 2d 3.03 kg (6 lb 11 oz) F Vag Livin g Gemini Kan MD Complications:None Delivery Location:Hospital Last Filed Vital Signs Vital Sign Reading Time Taken Comments Blood Pressure 113/76 09/02/2023 11:29 AM CDT Pulse 94 09/02/2023 11:29 AM CDT Temperature 36.7 ??C (98 ??F) 11/25/2022 11:51 AM CDT Respiratory Rate 18 11/25/2022 11:51 AM CDT Oxygen Saturation 98% 06/29/2023 1:35 PM CDT Inhaled Oxygen Concentration - - Weight 119.7 kg (264 lb) 09/02/2023 11:29 AM CDT Height 160 cm (5' 3) 09/02/2023 11:29 AM CDT Body Mass Index 46.77 09/02/2023 11:29 AM CDT Plan of Treatment Health Maintenance Due Date Last Done Comments HPV series for age 9-26 (1 - 3-dose series) 2013 COVID-19 vaccine series (2022- season) 2022 08/26/2021, 02/20/2021, 01/30/2021 Chlamydia for age 16-24 10/07/2023 10/07/19 23, 08/05/2021, 06/18/2020, Additional history exists Influenza for age 9-49 11/01/2023 , 11/14/2019, 11/14/2019, Additional history exists Pap test for age 21-65 04/03/2024 04/03/2021 Depression screening for age 12+ 06/28/2024 06/29/2023, 12/03/2022, 08/08/2022, Additional history exists BMI (ht and wt on same day) for age 18+ 09/01/2024 09/02/2023, 06/29/2023, 10/24/2022, Additional history exists Tetanus booster 02/11/2033 02/11/2023, 10/16/2011 Pneumococcal series for age 6-64 Aged Out 07/08/2000, 04/08/2000 No longer eligibl e based on patient's age to complete this topic HIV for age 15-65 Completed 10/06/2022 Hepatitis C screening for age 18-79 Completed 10/06/2022 Tdap Completed 02/11/2023, 10/16/2011 Procedures Procedure Name Priority Date/Time Associated Diagnosis Comments LC HIV-1/O/2, 4TH GENERATION Routine 10/06/2022 11:59 AM CDT Supervision of normal first in first trimester LC HCV ANTIBODY RFX TO QUANT PCR Routine 10/06/2022 11:59 AM CDT Supervision of normal first in first trimester GC CHLAMYDIA TRACH PROBE Routine 10/06/2022 11:50 AM CDT Supervision of normal first in first trimester MAGICIAN HELPER THIN PREP PAP SCREEN IMAGED Routine 04/03/2021 2:06 PM INVESTIGATIONS CHIEF Cervical cancer screening from Last 3 Months or Most Recently Relevant to Health Maintenance Results * LC HCV ANTIBODY RFX TO QUANT PCR (10/06/2022 11:59 AM CDT) Pathologist [facility] [place] HCV Ab Non Reactive Non Reactive 10/08/2022 10:06 PM CDT [facility] ([facility]) Blood BLOOD SPECIMEN / Unknown Venipuncture / Unknown 10/06/2022 11:59 AM CDT 10/06/2022 12:02 PM CDT Narrative [facility] ([facility]) - 10/08/2022 10:06 PM CDT Performed at: ??[address] ??[id number] Shine Worker: Juan Larsen MD, Phone: ??[phone] Betty Zeng MD LABORATORY [facility] ([facility]) [address] [place] [address], * LC HIV-1/O/2, 4TH GENERATION (10/06/2022 11:59 AM CDT) Pathologist [facility] [place] HIV Scr 4th Gen Non Reactive Non Reactive 10/08/2022 11:09 AM CDT [facility] (CET) Comment: HIV Negative HIV-1/HIV-2 antibodies and HIV-1 p24 antigen were NOT detected. There is no laboratory evidence of HIV infection. Blood BLOOD SPECIMEN / Unknown Venipuncture / Unknown 10/06/2022 11:59 AM CDT 10/06/2022 12:02 PM CDT Narrative [facility] ([facility]ET) - 10/08/2022 11:09 AM CDT Performed at: ??01 - [facility] [address] [place], [place] ??[id number] Shine Worker: Juan Larsen MD, Phone: ??[phone] Betty Zeng MD LABORATORY Performing Organization Address City/[facility]/ZIP Co de Phone Number [facility] (CET) [facility] [place] [address], * MAGICIAN HELPER PROBE - GC CHLAMYDIA DNA PCR [[id number]] (10/06/2022 11:50 AM CDT) Pathologist [facility] [place] CHLAMYDIA PROBE Negative 2:47 AM CDT [facility] TRAL LABORATORY N GONORRHOEAE PROBE Negative 10/07/2022 2:47 AM CDT [facility] LABORAT[facility] Other URINE SPECIMEN / Unknown Non-Blood / Unknown 10/06/2022 11:50 AM CDT 10/06/2022 12:03 PM CDT Betty Zeng MD MICROBIOLOGY Performing Organization Address City/[facility]/ZIP Co de Phone Number [facility]-CENTRAL LABORATORY [address] [place] [address], * MAGICIAN HELPER THIN PREP PAP SCREEN IMAGED (04/03/2021 2:06 PM INVESTIGATIONS CHIEF) Pathologist [facility] [place] Case Report Gynecologic Cytology Report ? Case: [id number] ? Authorizing Provider: ??Kierra Garcia PA Collected: ? 04/03/2021 1406 ? Ordering Location: ? [facility] ?? Received: ?04/03/2021 1445 ? Clinic ? First Screen: ?Baccam, Alexandrae ? Specimen: ?MAGICIAN HELPER ThinPrep Vial Screening, Cervical ? 04/11/2021 9:50 AM INVESTIGATIONS CHIEF [employer] LABORATORY-C ENTRAL LABORATORY INTERPRETATION/ RESULT NEGATIVE FOR INTRAEPITHELIAL LESION OR MALIGNANCY (NIL) (none) 04/11/2021 9:50 AM [employer]-C ENTRAL LABORATORY IMEN ADEQUACY Satisfactory for evaluation Endocervical component present 04/11/2021 9:50 AM INVESTIGATIONS CHIEF [facility] LABORAT[facility]-C ENTRAL LABORATORY HPV REQUEST HPV if ASCUS 04/11/2021 9:50 AM INVESTIGATIONS CHIEF [facility] LABOR[facility]-C ENTRAL LABORATORY Date of LMP 03-01-21 04/11/2021 9:50 AM INVESTIGATIONS CHIEF [employer] LABORAT[facility]-C ENTRAL LABORATORY Last Pap Date never done 04/11/2021 9:50 AM [employer] LABORATORY-C ENTRAL LABORATORY Last Pap Result First Pap/Unknown 9:50 AM INVESTIGATIONS CHIEF [email or web address] ENTRAL LABORATORY Abnormal Pap or [place] Bx in last 5 years No 04/11/2021 9:50 AM INVESTIGATIONS CHIEF [email or web address] ENTRAL LABORATORY Menstrual Status Regular Periods 04/11/2021 9:50 AM INVESTIGATIONS CHIEF [employer] LABORAT[facility]-C ENTRAL LABORATORY [place] Bx Done Today No 04/11/2021 9:50 AM INVESTIGATIONS CHIEF [facility] LABORAT[facility]- ENTRTX LABORATORY Additional Information None given 04/11/2021 9:50 AM INVESTIGATIONS CHIEF [facility] LABORAT[facility]- ENTRAL LABORATORY Comment: Cytology is screened at [facility] - [address], [place] [address] and [facility] - [address], [place] [address] and [facility] - [address] [place] [address] Interpreted at [facility] - [address], [place] [address] Automated Review Successful 04/11/2021 9:50 AM INVESTIGATIONS CHIEF [facility] LABORAT[facility]- ENTRAL LABORATORY Comment:Specimen processed s uccessfully by automated webbing supervisor device, ThinPrep Imaging System, [employer] Note The pap test is a screening technique, not a diagnostic procedure. It is used primarily to screen for squamous cancers and precursor lesions. Published studies have shown that it is subject to both false negative and false positive results. The pap test should not be used as the sole means to diagnose or exclude pre-malignant and malignant lesions. 04/11/2021 9:50 AM INVESTIGATIONS CHIEF [facility] LABOR[facility]- ENTRTX LABORATORY Other (Cervical) Non-Blood / Unknown 04/03/2021 2:06 PM INVESTIGATIONS CHIEF 04/03/2021 2:45 PM INVESTIGATIONS CHIEF Kierra ROMO PATHOLOGY/CYTOL [facility]-C[facility]TRAL LABORATORY [address] [place] [address], from Last 3 Months or Most Recently Relevant to Health Maintenance Care Teams Senior Technical Business Analyst Relationship Specialty Start Date End Date Kierra Garcia PA [address] [place] [address] PCP - General Physician Farm Laborer 03/13/21 Betty Zeng MD [address] [place] [address] Family Practice 11/19/22
[2023-10-02] MEDS: KETOROLAC 15 MG/ML inj IVP (09:08)
[2023-10-02] MEDS: ONDANSETRON 2 MG/ML inj 4 MG IVP (09:10)
[2023-10-02 09:20] LABS: Basophils Absolute Auto 0.03 K/uL (0.00-0.30); Basophils Percent Auto 0.3 % (0.0-3.0); Eosinophils Absolute Auto 0.07 K/uL (0.00-0.50); Eosinophils Percent Auto 0.7 % (0.0-7.0); Hematocrit 39.9 % (33.0-51.0); Hemoglobin* 13.1 gm/dL (12.0-16.0); Immature Granulocytes Abs Auto 0.01 K/uL (0.00-0.30); Immature Granulocytes Pct Auto 0.1 %; Lymphocytes Absolute Auto 1.92 K/uL (0.90-2.90); Lymphocytes Percent Auto 20.5 % (20-44); Mean Corpuscular HGB Conc 33 gm/dL (32-36); Mean Corpuscular Hemoglobin 31 pg (26-34); Mean Corpuscular Volume 93 fL (80-100); Monocytes Percent Auto 8.3 % (0.0-11.0); Neutrophils Absolute Auto 6.54 K/uL (1.7-7.0); Neutrophils Percent Auto 70.1 % (42.0-72.0); Platelet Count* 314 K/uL (140-440); RDW Coefficient of Variation % 12.6 % (11.5-15.5); Red Blood Count 4.29 m/uL (4.00-5.20); White Blood Count* 9.35 K/uL (4.50-11.00)
[2023-10-02 09:30] LABS: Slide Review Reflex No
[2023-10-02 09:36] LABS: Chloride* 109 mmol/L (96-114); Potassium* 3.9 mmol/L (3.6-5.1); Sodium* 138 mmol/L (135-149)
[2023-10-02 09:39] LABS: Anion Gap 9 mEq/L (7-15); Blood Urea Nitrogen* 23 mg/dL (5-24); Carbon Dioxide* 20 mmol/L (20-32); Creatinine* 0.7 mg/dL (0.5-1.5); Est. Creatinine Clearance* 102.51; Estimated Glomerular Filt Rate 124 ml/min
[2023-10-02 09:40] LABS: Calcium* 9.6 mg/dL (8.4-10.6); Glucose* 112 mg/dL (60-115)
[2023-10-02 09:42] LABS: C Reactive Protein* 1.5 mg/dL (0.5-1.0)
[2023-10-02 09:52] LABS: HCG Qualitative Serum* Negative (Negative)
[2023-10-02 09:52] LABS: Appearance Urine Clear (Clear); Bilirubin Urine Negative (Negative); Blood Urine 3+ (Negative); Color Urine Yellow (Yellow); Glucose Urine Negative (Negative); Ketones Urine Negative (Negative); Leukocyte Esterase Urine Trace (Negative); Nitrite Urine Negative (Negative); Protein Urine Negative (Negative); Specific Gravity Urine >= 1.030 (1.000-1.030); Urobilinogen Urine 0.2 (0.2-1.0); pH Urine 5.5 (5.0-8.5)
--- NOTE | 2023-10-02 10:20 | CRLHL7_ITS ---
For Patients: As a result of the Century Cures Act, medical imaging exams and procedure reports are released immediately into your electronic medical record. You may view this report before your referring provider. If you have questions, please contact your health care provider. INDICATION: LEFT SIDED ABD PAIN. SUDDEN ONSET. TECHNIQUE: CT abdomen and pelvis without contrast. COMPARISON: CT abdomen and pelvis dated 11/29/2020. FINDINGS: Lower chest: Unremarkable. Solid organ evaluation is limited without the use of intravenous contrast. Liver: Normal in size and attenuation. No suspicious masses. Gallbladder and bile ducts: No stones or inflammation. No biliary dilatation. Pancreas: Unremarkable. No mass or inflammation. Spleen: Normal in size. No masses. Adrenal glands: Normal in size. No nodules. Kidneys: Normal in size. No suspicious masses, stones, or hydronephrosis. GI tract: Unremarkable. Normal in caliber. No sign of mass or inflammation. Normal appendix. Vasculature: Abdominal aorta is normal in caliber. Lymph nodes: No lymphadenopathy. Peritoneum/Abdominal Wall: Unremarkable. No sign of mass or infiltration. No free air or significant free fluid. Pelvis: Unremarkable. No pelvic masses. Bones: Unremarkable for age. IMPRESSION: No evident acute abnormalities in the abdomen or pelvis. No radiopaque calculi in the urinary collecting system. Please note that all CT scans at this facility use dose modulation, iterative reconstruction, and/or weight-based dosing when appropriate to reduce radiation dose to as low as reasonably achievable. Dictated by Tito Herman MD @ 10/02/2023 11:43:02 AM (Electronically Signed)
[2023-10-02 10:34] LABS: Bacteria Urine Moderate; RBC Urine 25-50 (0-2); Squamous Epithelial Cell Urine Moderate (None-Few)
== END 2023-10-02 12:00 | disposition home or self-care (01) ==
PROVIDERS: Emergency Provider Family Medicine; PCP Family Medicine
DX: E28.2 Polycystic ovarian syndrome (principal)
CPT/HCPCS: 36415; 74176; 76830; 76856; 80048; 81001; 84703; 85025; 86140; 87086; 93976; 96374; 96375; 99284; 99285; J1885; J2405

== ENCOUNTER 2024-06-23 12:35 | Outpatient (CLI) | payer BC, SELFPAY | END 2024-06-23 12:36 | disposition home or self-care (01) | PROVIDERS: PCP Physician Assistant Medical | DX: R19.7 Diarrhea, unspecified (principal) | CPT/HCPCS: 87493; 87505 ==